=== PATIENT | male | born 1990 | race Caucasian/White ===

== ENCOUNTER 2019-08-12 15:13 | Inpatient (IN) | payer MEDICAID ==
[~2019-08-12] VITALS: Ht 180.3 cm; Wt 64.1 kg
[2019-08-12 19:34] VITALS: BP 118/76
--- NOTE | 2019-08-12 21:00 | NUR ---
ADMIT NOTE Legal hold: 5150 Client on involuntary status for SI/HI Why are they here: [facility]. While at a medication appointment, pt endorsed SI with a plan to drown himself r/t to girlfriend relationship problems in the tub and HI towards staff r/t night terrors that tell him to harm the entire world. Pt states "I don't want to hurt my loved ones, they are just grouped into the world, so I won't act on it but the dreams tell me this". Nursing staff assessed at appointment and brought pt into [facility] where he was placed on a hold and brought to [facility]. No Med Hx, Hx DD and Schizoaffective Disorder Assessment What has happened this shift: Pt arrived on [facility] floor at 1934. Pt was transported to [facility] via wheelchair accompanied by security staff and Tristan PCT. Contraband check was completed by Charanjit and Tristan. 2 person skin assessment was completed by myself and Astrid Ordonez RN. Pt cooperative with admit process; all documentation and paperwork completed at bedside. Pt states he was feeling suicidal but not in this exact moment; Pt endorses +HI towards "the planet, I want to enslave them because my night terrors tell me to." Pt fatigued from receiving Ativan 2mg IM earlier in the day and requesting to have a snack then go to sleep. Physical assessment completed; findings unremarkable, but pt overall strength and gait mildly weak. Pt states it is from the IM injections and he is usually stronger. 5150 written, document copied and given to Pt. S/I, H/I: - SI, + HI A/VH: Denies Sleep: Reports sleeping okay, sometimes needs nighttime medication to help ADL's: Independent Group attendance: no evening groups offered Were meds taken: no scheduled medications Any med S/E: none observed or reported Mental Status Exam Appearance: Pt clean, changed into unit green scrubs and nonskid socks Eye contact: Direct Behavior: Cooperative, Fatigued Speech: Normal rate and rhythm Mood: Tired, Depressed 10/10 Affect: Blunted Thought process: Linear Thought Content: Wanting to go to sleep Cognition: A/Ox3 (off for time) Insight: Fair Judgment: Poor Interventions PRN's used: None Therapeutic interventions: 1:1 assessment, establishment of rapport, maintained safe therapeutic milieu, provided active listening with positive feedback, provided medication education and monitored for effects, monitored for change in behavior and provided needed interventions. Q 15 minute safety checks. Restraints/seclusion/emergency medication: N/A Justification of Continued Inpatient Treatment: Continued therapeutic support and medication management needed to provide stabilization, prevent decompensation, improve coping mechanisms decreasing risk to patient of re-admittance.
[2019-08-12] MEDS ORDERED: DIPH25CA83 PO (22:08)
[2019-08-12] MEDS ORDERED: THO10T PO (22:11)
[2019-08-12] MEDS ORDERED: IBUP-1984 PO (22:16)
[2019-08-12] MEDS ORDERED: LORA10TA7 PO (22:17)
[2019-08-12] MEDS ORDERED: OXCA300T16 PO (22:19)
[2019-08-12] MEDS ORDERED: OXCA600T9 PO (22:22)
[2019-08-12] MEDS ORDERED: ACET1TAB12 PO (22:24)
[2019-08-12] MEDS ORDERED: VENL-191 PO (22:28)
[2019-08-12] MEDS ORDERED: OLAN5TAB3 PO (22:30)
[2019-08-12] MEDS ORDERED: OLAN20TA3 PO (22:31)
[2019-08-12] MEDS ORDERED: chlorproMAZINE 25mg tablet PO PRN (23:15)
[2019-08-12] MEDS ORDERED: diphenhydrAMINE 25mg capsule PO PRN (23:15)
[2019-08-12] MEDS ORDERED: acetaminophen w/codeine (30MG) #3 tablet PO PRN (23:15)
[2019-08-13] MEDS ORDERED: acetaminophen 325mg tablet PO PRN (05:50)
[2019-08-13] MEDS ORDERED: loperamide 2mg capsule PO PRN (05:55)
[2019-08-13] MEDS ORDERED: LORazepam 1 MG tablet PO PRN (05:55)
[2019-08-13] MEDS ORDERED: magnesium hydroxide 30ml (MOM) UD suspension PO PRN (05:55)
[2019-08-13] MEDS: loratadine 10mg tablet PO SCH (07:38)
[2019-08-13 08:00] VITALS: BP 119/69
[2019-08-13] MEDS ORDERED: venlafaxine 37.5mg tablet PO SCH (08:00)
[2019-08-13] MEDS ORDERED: oxcarbazepine 150mg tablet PO SCH ×2 (08:00→21:00)
[2019-08-13] MEDS: mag hydrox/Alum hydrox/simeth 30ml oral suspension PO PRN (09:02)
[2019-08-13 12:08] LABS: CHOL/HDL RATIO 3.1 (0.00-4.99); CHOLESTEROL 156 MG/DL (0-200); HDL CHOLESTEROL 51 MG/DL (35-60); LDL CHOLESTEROL 96 MG/DL (50-100); TRIGLYCERIDES 49 MG/DL (20-135)
--- NOTE | 2019-08-13 12:16 | NUR ---
Malnutrition consult: Pt unsure if any wt loss but reports decreased appetite per malnutrition risk screening with RN. Noted that pt A/O x 3 per physical assessment. Patient's most recent wt hx is 62.8 kg 10/14/11 obtained with chair scale, pt currently 60.2 kg using standing scale resulting in BMI on the low end of appropriate. Pt currently on regular diet documented with 75-100% PO intake meeting nutrient needs. No significant decrease in muscle strength and no edema. Pt currently does not meet criteria for malnutrition. Will continue to follow and further assess for malnutrition during hospital stay. Addendum: 08/13/19 at [address] Amended: Links added.
[2019-08-13 12:18] LABS: HEMOGLOBIN A1C 4.8 % (4.5-6.2)
--- NOTE | 2019-08-13 15:26 | NUR ---
Nursing Progress note: Ezequiel Barber Legal hold: [id number] Client on involuntary status for SI/HI Why are they here: Pt resides in residential skilled nursing for DD. While at a medication appointment, pt endorsed SI with a plan to drown himself r/t to girlfriend relationship problems in the tub and HI towards staff r/t night terrors that tell him to harm the entire world. Pt states "I don't want to hurt my loved ones, they are just grouped into the world, so I won't act on it but the dreams tell me this". Nursing staff assessed at appointment and brought pt into [facility] where he was placed on a hold and brought to [facility]. Report received from Karey LARIOS No Med Hx, Hx DD and Schizoaffective Disorder Assessment What has happened this shift: Received patient at shift change. client was in bed resting with eyes closed in no apparent distress. Client was asked to give a blood sample this am which was eventually refused secondary to client anxiety. Amicable to morning medications and assessment. Came to Group Room for breakfast and interacted with peers. Blood draw was obtained this am about 1045 hours. Patient tolerated well but soon complained of an, "implant in my head causing my anger problem". Patient and chief underwriter spoke regarding the issue and client left conversation a little less anxious regarding "implant". Client wants to advocate for his release today citing that he no longer wants to cause harm to himself or others. Client spent majority of afternoon in his room. No behavioral issues identified. S/I, H/I: - SI + HI A/VH: Denies Sleep: Reports sleeping well. ADL's: Independent Group attendance: no Were meds taken: Yes Any med S/E: none observed or reported Mental Status Exam Appearance: Pt clean, changed into unit green scrubs and nonskid socks Eye contact: Direct Behavior: Cooperative, Fatigued Speech: Normal rate and rhythm Mood: Tired, Depressed 10/10 Affect: Blunted Thought process: Linear Thought Content: Wanting to go to sleep Cognition: A/Ox3 (off for time) Insight: Fair Judgment: Poor Interventions PRN's used: Maalox with good effect. Therapeutic interventions: 1:1 assessment, establishment of rapport, maintained safe therapeutic milieu, provided active listening with positive feedback, provided medication education and monitored for effects, monitored for change in behavior and provided needed interventions. Q 15 minute safety checks. Restraints/seclusion/emergency medication: N/A Justification of Continued Inpatient Treatment: Continued therapeutic support and medication management needed to provide stabilization, prevent decompensation, improve coping mechanisms decreasing risk to patient of re-admittance. Addendum: 08/13/19 at 1603 by Chino Brandon RN During a meeting with his treating DrSofiyathis afternoon, client stated that he does not feel as though he is being treated with proper medications.He states that his [facility] at his residence can provide proper list of medications. Client is amicable to assisting with locating the med list and Dr. Renee is aware.
--- NOTE | 2019-08-13 16:50 | NUR ---
After obtaining release, Sammy [facility] was contacted at 1645 hours today and it was requested of her to provide an accurate med list for this client. She will bring a copy to the unit later today or in the am tomorrow.
[2019-08-13] MEDS: acetaminophen 325mg tablet PO PRN (19:45)
[2019-08-13 20:00] VITALS: BP 114/73
[2019-08-13] MEDS ORDERED: OLANZAPINE 5 MG TABLET PO SCH (21:00)
[2019-08-13] MEDS ORDERED: olanzapine 10mg tablet PO SCH (21:00)
--- NOTE | 2019-08-13 21:59 | NUR ---
NURSING PROGRESS NOTE Legal hold: [id number] Client on involuntary status for DTS/DTO Report received from BRYAN Funez with [facility] Why are they here: Pt resides in residential fpc for DD. While at a medication appointment, pt endorsed SI with a plan to drown himself in the tub r/t to girlfriend relationship problems and concurrent HI towards staff r/t night terrors that tell him to harm the entire world. Pt states "I don't want to hurt my loved ones, they are just grouped into the world, so I won't act on it but the dreams tell me this". Nursing staff assessed at appointment and brought pt into [facility] where he was placed on a hold and brought to [facility]. No Med Hx, Hx DD and Schizoaffective Disorder Assessment What has happened this shift: Pt walking the halls during change of shift, then isolated to self not wanting to attend snack "I just want to sleep". Pt made minimal eye contact and RN needed to prompt pt mulitple times to illicit a response; pt denies SI and HI, stating he "wants to go home." He denied having nightmares last night, and refused give medications this evening, stating "I do not take those medications." horticulture professor contacted residential home where pt resides for the second time today to confirm pt medications; awaiting response. Pt would not further elaborate on circumstances which brought him in, only reiterating "I'm not sad. I just want to go home." S/I, H/I: Denies A/VH: Denies, Does not appear to be responding to internal/external stimuli Sleep: See Sleep Assessment ADL's: Independent Group attendance: N/A Were meds taken: No, pt refused stating "I do not take those". Unit attempted second contact with residential home to confirm medications, awaiting response. Any med S/E: None observed nor reported Mental Status Exam Appearance: Pt clean, unit green scrubs and nonskid socks Eye contact: Minimal Behavior: Cooperative, Fatigued Speech: Normal rate and rhythm Mood: "Tired" Affect: Flat Thought process: Linear Thought Content: Wanting to go to sleep Cognition: A/Ox3 (off for time) Insight: Fair Judgment: Poor Interventions PRN's used: None Therapeutic interventions: 1:1 assessment, establishment of rapport, maintained safe therapeutic milieu, provided active listening with positive feedback, provided medication education and monitored for effects, monitored for change in behavior and provided needed interventions. Q 15 minute safety checks. Restraints/seclusion/emergency medication: N/A Justification of Continued Inpatient Treatment: Continued therapeutic support and medication management needed to provide stabilization, prevent decompensation, improve coping mechanisms decreasing risk to patient of re-admittance.
--- NOTE | 2019-08-14 05:13 | NUR ---
Carissa Yoana: [phone] [facility] Wildlife Ecologist Brought CLIENTS EMAR.
[2019-08-14] MEDS ORDERED: BUPR200T2 PO (05:18)
[2019-08-14] MEDS ORDERED: ARIP400S3 IM (05:18)
[2019-08-14] MEDS ORDERED: PALI234D IM (05:19)
[2019-08-14] MEDS ORDERED: MONT10TA24 PO (05:22)
[2019-08-14] MEDS ORDERED: OMEP20TA23 PO (05:22)
[2019-08-14] MEDS ORDERED: [UNRECOGNIZED DRUG - CODE] (05:31)
[2019-08-14] MEDS ORDERED: ONDA8TAB12 PO (05:34)
[2019-08-14 07:48] VITALS: BP 114/72
--- NOTE | 2019-08-14 08:05 | NUR ---
Spoke to [facility] office who states that she will send a copy of this Pt's medication list via fax. Steffi at [facility] office confirms that Pt is on both Invega Sustenna and Abilify Maintaina and Wellbutrin SR given once daily in the mornings. She reports also that he received both of the injections for Invega and Abilify on 08/10/19. This information was clarified by this insurance underwriter with [facility] pharmacist.
[2019-08-14] MEDS: loratadine 10mg tablet PO SCH (09:16)
[2019-08-14] MEDS: buPROPion SR 100mg tab PO SCH (09:17)
[2019-08-14] MEDS: ondansetron 4mg rapidly disintigrating tab PO SCH (09:17)
[2019-08-14] MEDS: montelukast 10mg tablet PO SCH (09:39)
[2019-08-14] MEDS: acetaminophen 325mg tablet PO PRN (15:19)
[2019-08-14] MEDS: mag hydrox/Alum hydrox/simeth 30ml oral suspension PO PRN (15:21)
[2019-08-14] MEDS ORDERED: proCHLORperazine 10 MG/2 ml inj IM PRN (16:20)
[2019-08-14] MEDS: aspirin/acetaminophen/caffeine tablet PO PRN (17:11)
--- NOTE | 2019-08-14 17:14 | NUR ---
Nursing Progress note: Legal hold: 5150 Report received from Karey LARIOS Client on involuntary status for SI/HI Why are they here: Pt resides in residential long term for DD. While at a medication appointment, pt endorsed SI with a plan to drown himself r/t to girlfriend relationship problems in the tub and HI towards staff r/t night terrors that tell him to harm the entire world. Pt states "I don't want to hurt my loved ones, they are just grouped into the world, so I won't act on it but the dreams tell me this". Nursing staff assessed at appointment and brought pt into [facility] where he was placed on a hold and brought to [facility]. Assessment What has happened this shift: Received patient in bed sleeping w/o distress at shift change. He awoke and was pleasant in conversation with this nurse and attended breakfast where he was able to talk with others appropriately. He complained of not feeling well and vommitted breakfast and continued to vommit multiple times. Was fatigued and drowsey and helped him to bed and provided comfort. Pt slept for an hour and c/o caffeine w/d and body aches and was given tylenol with moderate effect. Pt ate lunch and had some soda during movie and snack time, but vommited after. Given maalox for upset stomach. Consulted with Charge Nurse and Dr Renee and compazine and excedrin ordered and given. Pt increasingly talkative throughout day. Affect and energy brighter after meds and eating PBJ and cheese. S/I, H/I: - SI + HI A/VH: Denies Sleep: Reports sleeping well. ADL's: Independent Group attendance: no Were meds taken: Yes Any med S/E: none observed or reported Mental Status Exam Appearance: Pt clean, changed into unit green scrubs and nonskid socks Eye contact: Direct Behavior: Cooperative, Fatigued Speech: Normal rate and rhythm Mood: Tired, Depressed 10/10 Affect: Blunted Thought process: Linear Thought Content: Wanting to go to sleep Cognition: A/Ox3 Insight: Fair Judgment: Poor Interventions PRN's used: Tylenol,Maalox, Compazine, Excedrin Therapeutic interventions: 1:1 assessment, establishment of rapport, maintained safe therapeutic milieu, provided active listening with positive feedback, provided medication education and monitored for effects, monitored for change in behavior and provided needed interventions. Q 15 minute safety checks. Restraints/seclusion/emergency medication: N/A Justification of Continued Inpatient Treatment: Continued therapeutic support and medication management needed to provide stabilization, prevent decompensation, improve coping mechanisms decreasing risk to patient of re-admittance.
[2019-08-14 19:00] VITALS: BP 127/90
[2019-08-14 20:00] VITALS: BP 127/90
[2019-08-14] MEDS: hydrOXYzine 25 MG tablet PO PRN ×2 (20:22→21:24)
[2019-08-14] MEDS: pantoprazole 40mg Tablet.DR PO SCH (20:22)
--- NOTE | 2019-08-15 01:12 | NUR ---
NURSING PROGRESS NOTE Legal hold: [id number] Client on involuntary status for DTS/DTO Report received from BRYAN Mehta with [facility] Why are they here: Pt resides in [facility] for DD. While at a medication appointment, pt endorsed SI with a plan to drown himself in the tub r/t to girlfriend relationship problems and concurrent HI towards staff r/t night terrors that tell him to harm the entire world. Pt states "I don't want to hurt my loved ones, they are just grouped into the world, so I won't act on it but the dreams tell me this". Nursing staff assessed at appointment and brought pt into [facility] where he was placed on a hold and brought to [facility]. No Med Hx, Hx DD and Schizoaffective Disorder Assessment What has happened this shift: Pt walking the halls at change of shift and approached this RN multiple times to ask for snacks and to converse about a "girl visiting". RN directed pt to bedside where the 1:1 was completed. Pt described a hallucination of a "young blonde girl who is 13 that comes to visit me every night, cuddle, but leaves in the morning." Pt was worried she was out in the world and in danger without anyone to look after her. RN reinforced reality and pt eventually came around to agreeing it was a hallucination and not an actual person. He states she visits him in his residential home, too. Pt continued "I wake up and have a boner and it's embarrassing." Pt asked why this occurs; RN discussed the biology behind waking with an erection in the morning. Pt verbalized understanding then returned to inquiring about his hallucination, wanting confirmation that she isn't real. RN reinforced reality and pt accepted. 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 This RN noticed hair pulling this shift and offered pt PRN Atarax, pt decided to take it to good effect. After medication administration pt went to bed, waking once for a snack. S/I, H/I: Denies A/VH: +VH; Pt sees a girl of 13 years old enter his room every night to cuddle Sleep: See Sleep Assessment ADL's: Independent Group attendance: N/A Were meds taken: Yes Any med S/E: None observed nor reported Mental Status Exam Appearance: Pt clean, unit green scrubs and nonskid socks Eye contact: Direct Behavior: Cooperative, Fatigued; Walking halls, requesting snacks, had a visitor, playing a game with peers, picking at hair Speech: Normal rate and rhythm Mood: Tired, Depression 1/10, Anxious 5/10 Affect: Blunted with occasional brightening Thought process: Linear Thought Content: Wanting to go to sleep, hallucinations Cognition: A/Ox3 (off for time) Insight: Fair Judgment: Poor Interventions PRN's used: Atarax x2 Therapeutic interventions: 1:1 assessment, establishment of rapport, maintained safe therapeutic milieu, provided active listening with positive feedback, provided medication education and monitored for effects, monitored for change in behavior and provided needed interventions. Q 15 minute safety checks. Restraints/seclusion/emergency medication: N/A Justification of Continued Inpatient Treatment: Continued therapeutic support and medication management needed to provide stabilization, prevent decompensation, improve coping mechanisms decreasing risk to patient of re-admittance.
[2019-08-15 07:21] VITALS: BP 97/57
[2019-08-15] MEDS: buPROPion SR 100mg tab PO SCH (08:27)
[2019-08-15] MEDS: loratadine 10mg tablet PO SCH (08:27)
[2019-08-15] MEDS: ondansetron 4mg rapidly disintigrating tab PO SCH (08:27)
[2019-08-15] MEDS: montelukast 10mg tablet PO SCH (08:30)
[2019-08-15] MEDS: aspirin/acetaminophen/caffeine tablet PO PRN ×3 (08:30→19:20)
[2019-08-15] MEDS: protein shake 8oz. (237ml) PO SCH ×2 (13:00→18:00)
--- NOTE | 2019-08-15 16:10 | NUR ---
Nursing Progress note: Legal hold: 5150 Client on involuntary status for SI/HI Report received from HARRIET Ventura, with use of [facility] Why are they here: Pt resides in residential [facility] for DD. While at a medication appointment, pt endorsed SI with a plan to drown himself r/t to girlfriend relationship problems in the tub and HI towards staff r/t night terrors that tell him to harm the entire world. Pt states "I don't want to hurt my loved ones, they are just grouped into the world, so I won't act on it but the dreams tell me this". Nursing staff assessed at appointment and brought pt into [facility] where he was placed on a hold and brought to [facility]. Assessment What has happened this shift: Pt up in the Recreation Room then paces the halls prior to breakfast. 1:1 assessment provided at bedside while administering AM medications. Pt declines encouragement to shower or to brush his teeth. He consistently comes to nurses, any nurse, to tell a story or ask for food or a medication. Pt got involved in art therapy and shared his feelings about a painting experience with the nurses. S/I, H/I: Denies A/VH: Denies Sleep: Up all day ADL's: Independent Group attendance: Yes Were Meds taken: Yes Any med S/E: none observed or reported Mental Status Exam Appearance: Needs shower; refused to shower or brush teeth Eye contact: Direct Behavior: Needs constant prompting to follow directions Speech: Normal rate and rhythm Mood: Tired, Depressed 10/10 Affect: Blunted Thought process: Linear Thought Content: "I'm God, I'm above the human." Cognition: A/Ox3 Insight: Fair Judgment: Poor Interventions PRN's used: Excedrin, Atarax Therapeutic interventions: 1:1 assessment, establishment of rapport, maintained safe therapeutic milieu, provided active listening with positive feedback, provided medication education and monitored for effects, monitored for change in behavior and provided needed interventions. Q 15 minute safety checks. Restraints/seclusion/emergency medication: N/A Justification of Continued Inpatient Treatment: Continued therapeutic support and medication management needed to provide stabilization, prevent decompensation, improve coping mechanisms decreasing risk to patient of re-admittance.
[2019-08-15] MEDS: pantoprazole 40mg Tablet.DR PO SCH (19:20)
[2019-08-15 20:00] VITALS: BP 121/80
--- NOTE | 2019-08-15 23:16 | NUR ---
Nursing Progress note: Legal hold: 5150 Client on involuntary status for SI/HI Report received from BRYAN Fan, with use of [facility] Why are they here: Pt resides in residential [facility]pc for DD. While at a medication appointment, pt endorsed SI with a plan to drown himself r/t to girlfriend relationship problems in the tub and HI towards staff r/t night terrors that tell him to harm the entire world. Pt states "I don't want to hurt my loved ones, they are just grouped into the world, so I won't act on it but the dreams tell me this". Nursing staff assessed at appointment and brought pt into [facility] where he was placed on a hold and brought to [facility]. Assessment What has happened this shift: Pt up in carney at start of shift. First thing the pt said after introduction "I want to kill everyone for things they have done and I want to kill myself for things I have done. I feel I deserve a violent . He said all this in a pleasant conversational tone, extremely incongruent with the content. Pt continues to talk nonstop, tangential, many somatic complaints. Approached various staff members not observed interacting with other pts. Pt is pleasant and cooperative with care took all medications. Came to group room for snack. Got up after going to bed saying he was hungry ate another snack and returned to bed. In bed sleeping at this time. S/I, H/I: Denies A/VH: Denies Sleep: Up all day ADL's: Independent Group attendance: Yes Were Meds taken: Yes Any med S/E: none observed or reported Mental Status Exam Appearance: Needs shower; refused to shower or brush teeth Eye contact: Direct Behavior: Needs constant prompting to follow directions Speech: Normal rate and rhythm Mood: Tired, Depressed 10/10 Affect: Blunted Thought process: Linear Thought Content: Tangential Cognition: A/Ox3 Insight: Fair Judgment: Poor Interventions PRN's used: Excedrin, Therapeutic interventions: 1:1 assessment, establishment of rapport, maintained safe therapeutic milieu, provided active listening with positive feedback, provided medication education and monitored for effects, monitored for change in behavior and provided needed interventions. Q 15 minute safety checks. Restraints/seclusion/emergency medication: N/A Justification of Continued Inpatient Treatment: Continued therapeutic support and medication management needed to provide stabilization, prevent decompensation, improve coping mechanisms decreasing risk to patient of re-admittance.
[2019-08-16 08:00] VITALS: BP 105/66
[2019-08-16] MEDS: ondansetron 4mg rapidly disintigrating tab PO SCH (09:40)
[2019-08-16] MEDS: loratadine 10mg tablet PO SCH (09:40)
[2019-08-16] MEDS: buPROPion SR 100mg tab PO SCH (09:40)
[2019-08-16] MEDS: montelukast 10mg tablet PO SCH (09:40)
[2019-08-16] MEDS: hydrOXYzine 25 MG tablet PO PRN ×2 (10:59→19:13)
--- NOTE | 2019-08-16 11:01 | NUR ---
DISCHARGE PLANNING: Patient refused to tell this singer songwriter who he sees outpatient or give this singer songwriter any contact information for anyone who might know
[2019-08-16] MEDS: aspirin/acetaminophen/caffeine tablet PO PRN (11:21)
[2019-08-16] MEDS: lactose-reduced food (Ensure Enlive) - 237ml bottle PO SCH ×2 (13:00→18:57)
--- NOTE | 2019-08-16 16:07 | NUR ---
Nursing Progress note: Legal hold: 5150 Client on involuntary status for SI/HI Report received from HARRIET Sánchez, with use of [employer] Why are they here: Pt resides in residential detention for DD. While at a medication appointment, pt endorsed SI with a plan to drown himself r/t to girlfriend relationship problems in the tub and HI towards staff r/t night terrors that tell him to harm the entire world. Pt states "I don't want to hurt my loved ones, they are just grouped into the world, so I won't act on it but the dreams tell me this". Nursing staff assessed at appointment and brought pt into [facility] where he was placed on a hold and brought to [facility]. Assessment What has happened this shift: Pt slept until 0945 this morning. His breakfast was warmed up and provided along with medication administration in the community room. Encouraged pt to shower. Pt states, "I don't shower I only take bathes." Educated pt to "shower meditation" encouraging him to try it. Pt later showered twice while meditating each time. PRN Atarax administered for agitation. S/I, H/I: Denies A/VH: Denies Sleep: Up all day ADL's: Independent Group attendance: No Were Meds taken: Yes Any med S/E: none observed or reported Mental Status Exam Appearance: Showered x2 today; clean green scrubs Eye contact: Direct Behavior: Needs constant prompting to follow directions Speech: Normal rate and rhythm Mood: Tired, Depressed 10/10 Affect: Blunted Thought process: Linear Thought Content: focused on pain in his thigh Cognition: A/Ox3 Insight: Fair Judgment: Poor Interventions PRN's used: Excedrin, Atarax Therapeutic interventions: 1:1 assessment, establishment of rapport, maintained safe therapeutic milieu, provided active listening with positive feedback, provided medication education and monitored for effects, monitored for change in behavior and provided needed interventions. Q 15 minute safety checks. Restraints/seclusion/emergency medication: N/A Justification of Continued Inpatient Treatment: Continued therapeutic support and medication management needed to provide stabilization, prevent decompensation, improve coping mechanisms decreasing risk to patient of re-admittance.
[2019-08-16] MEDS: ibuprofen 200mg tablet PO PRN (18:49)
[2019-08-16 20:00] VITALS: BP 127/77
[2019-08-16] MEDS: pantoprazole 40mg Tablet.DR PO SCH (20:29)
--- NOTE | 2019-08-16 21:54 | NUR ---
Nursing Progress note: Legal hold: 5150 Client on involuntary status for SI/HI Report received from HARRIET Duckworth, with use of SBAR Why are they here: Pt resides in residential alf for DD. While at a medication appointment, pt endorsed SI with a plan to drown himself r/t to girlfriend relationship problems in the tub and HI towards staff r/t night terrors that tell him to harm the entire world. Pt states "I don't want to hurt my loved ones, they are just grouped into the world, so I won't act on it but the dreams tell me this". Nursing staff assessed at appointment and brought pt into [facility] where he was placed on a hold and brought to [facility]. Assessment What has happened this shift: Pt up pacing carney and c/o of constipation PRN MOM and PRN Atarax administered for agitation. Pt went to sleep and refused his night meds. S/I, H/I: Denies A/VH: Denies Sleep: Up all day ADL's: Independent Group attendance: No Were Meds taken: Yes Any med S/E: none observed or reported Mental Status Exam Appearance: Showered x2 today; clean green scrubs Eye contact: Direct Behavior: Needs constant prompting to follow directions Speech: Normal rate and rhythm Mood: Tired, Depressed 10/10 Affect: Blunted Thought process: Linear Thought Content: focused on pain in his thigh Cognition: A/Ox3 Insight: Fair Judgment: Poor Interventions PRN's used: Excedrin, Atarax Therapeutic interventions: 1:1 assessment, establishment of rapport, maintained safe therapeutic milieu, provided active listening with positive feedback, provided medication education and monitored for effects, monitored for change in behavior and provided needed interventions. Q 15 minute safety checks. Restraints/seclusion/emergency medication: N/A Justification of Continued Inpatient Treatment: Continued therapeutic support and medication management needed to provide stabilization, prevent decompensation, improve coping mechanisms decreasing risk to patient of re-admittance.
[2019-08-17 08:00] VITALS: BP 97/47
[2019-08-17] MEDS: montelukast 10mg tablet PO SCH (08:17)
[2019-08-17] MEDS: loratadine 10mg tablet PO SCH (08:17)
[2019-08-17] MEDS: ondansetron 4mg rapidly disintigrating tab PO SCH (08:17)
[2019-08-17] MEDS: buPROPion SR 100mg tab PO SCH (08:17)
[2019-08-17] MEDS: lactose-reduced food (Ensure Enlive) - 237ml bottle PO SCH ×3 (08:17→18:00)
--- NOTE | 2019-08-17 11:01 | NUR ---
Initial: Pt admit with schizoaffective disorder. Pt currently on a regular diet documented with fluctuating PO intake, previously averaging 50% however up to 75-100% with 100% PO intake of Ensure Enlive TID meeting nutrient needs. Per physical assessment pt c/o nausea however able to eat a snack and is receiving Zofran PRN. LBM 08/15, pt with MoM PRN just given 08/16. No edema or wounds. No nutrition diagnosis at this time. Will continue to follow. Recommendations: 1) Continue regular diet 2) Continue Ensure Enlive TID 3) Bowel care PRN 4) Weekly wt Addendum: 08/17/19 at [address] Amended: Links added.
[2019-08-17] MEDS: acetaminophen 325mg tablet PO PRN (16:28)
[2019-08-17 20:00] VITALS: BP 133/74
[2019-08-17] MEDS: propranolol 10mg tablet PO SCH (20:02)
[2019-08-17] MEDS: ibuprofen 200mg tablet PO PRN (20:02)
[2019-08-17] MEDS: pantoprazole 40mg Tablet.DR PO SCH (20:02)
--- NOTE | 2019-08-18 01:38 | NUR ---
Nursing Progress note: Legal hold: 525 Client on involuntary status for SI/HI Report received from HARRIET Duckworth, with use of SBAR Why are they here: Pt resides in residential [facility] for DD. While at a medication appointment, pt endorsed SI with a plan to drown himself r/t to girlfriend relationship problems in the tub and HI towards staff r/t night terrors that tell him to harm the entire world. Pt states "I don't want to hurt my loved ones, they are just grouped into the world, so I won't act on it but the dreams tell me this". Nursing staff assessed at appointment and brought pt into [facility] where he was placed on a hold and brought to [facility]. Assessment What has happened this shift: Patient is in the shower at change of shift. Patient presents to the software writer at approximal 1930 verbalizing irritability because he was asked to leave the shower as he had been in the shower for 2+ hours. He stated "I don't like being told what to do and I get mad when people tell me what to do." Patient was talked to and allowed to vent and was able to be calmed by venting, being listened to. He was provided with a sandwich for snack, and a decaf coffee. He then reported generalized pain of 10, and requested pain medication. Motrin 600mg given with HS medication with good effect. Patient was compliant for a 1:1 assessment, and became less irritable as the evening went on. By bed time patient was again talking to staff and pleasant before turning himself to bed for the evening. S/I, H/I: Denies A/VH: Denies Sleep: Currently sleeping, see sleep assessment ADL's: Independent Group attendance: No groups this shift Were Meds taken: Yes Any med S/E: none observed or reported Mental Status Exam Appearance: Clean, showered Eye contact: Direct Behavior: Needs prompting to follow directions Speech: Normal rate and rhythm Mood: Irritable, but became happy/pleasant as the evening progressed. Affect: Blunted Thought process: Linear Thought Content: Focused on being mad about being told what to do. Cognition: A/Ox3 Insight: Fair Judgment: Poor Interventions PRN's used: Motrin Therapeutic interventions: 1:1 assessment, establishment of rapport, maintained safe therapeutic milieu, provided active listening with positive feedback, provided medication education and monitored for effects, monitored for change in behavior and provided needed interventions. Q 15 minute safety checks. Restraints/seclusion/emergency medication: N/A Justification of Continued Inpatient Treatment: Continued therapeutic support and medication management needed to provide stabilization, prevent decompensation, improve coping mechanisms decreasing risk to patient of re-admittance.
[2019-08-18 08:00] VITALS: BP 112/63
[2019-08-18] MEDS: loratadine 10mg tablet PO SCH (08:02)
[2019-08-18] MEDS: montelukast 10mg tablet PO SCH (08:02)
[2019-08-18] MEDS: propranolol 10mg tablet PO SCH ×3 (08:03→19:52)
[2019-08-18] MEDS: buPROPion SR 100mg tab PO SCH (08:03)
[2019-08-18] MEDS: ondansetron 4mg rapidly disintigrating tab PO SCH (08:03)
[2019-08-18] MEDS: lactose-reduced food (Ensure Enlive) - 237ml bottle PO SCH ×3 (08:43→18:00)
--- NOTE | 2019-08-18 17:03 | NUR ---
Nursing Progress note: Legal hold: 5250 Client on involuntary status for SI/HI Report received from HARRIET Sánchez, with use of SBAR Why are they here: [facility] in [facility]. While at a medication appointment, pt endorsed SI with a plan to drown himself r/t to girlfriend relationship problems in the tub and HI towards staff r/t night terrors that tell him to harm the entire world. Pt states "I don't want to hurt my loved ones, they are just grouped into the world, so I won't act on it but the dreams tell me this". Nursing staff assessed at appointment and brought pt into [facility] where he was placed on a hold and brought to [facility]. Assessment What has happened this shift: Patient is observed sleeping at change of shift. He is awoken to take his medications just prior to breakfast. Patient is provided medication education and encouraged to eat his breakfast. Patient states that he has multiple personalities and that most of them are bad and want to kill humanity. Patient tends to focus on this topic of discussion until redirected to other topics of interest. Patient discusses primitive batteries that Egyptians used made out of Zach lewis. He then talks about giant squids. Patient c/o of increased heart rate, RN educated patient on how to check his heart rate manually, 88 BPM. Patient is offered hot tea, he drinks it at states that he is going to rest. RN encouraged deep breathing exercises to help reduce anxiety. Patient approaches reporting feelings of anger that are causing him to want to hurt others. He scratches at his face and tells this RN he does so so that he will not hurt others. Patient states that he was born a God, a God that was made to torture people. Patient tells RN that he has two cats; Mittens and Jelly that he cares for. He is able to be redirected to focusing on their care which changes his demeanor to calm. S/I, H/I: Denies A/VH: Denies Sleep: 7.75hrs NOC and rested during the day, patient reports he does not feel like he is getting rest. ADL's: Independent Group attendance: yes Were Meds taken: Yes Any med S/E: none observed or reported Mental Status Exam Appearance: disheveled Eye contact: Direct Behavior: pleasant, frustrated, angry Speech: Normal rate and rhythm, soft tone Mood: labile Affect: congruent to mood Thought process: disorganized Thought Content: delusional thought content present Cognition: A/Ox3 Insight: Fair Judgment: Poor Interventions PRN's used: none Therapeutic interventions: 1:1 assessment, establishment of rapport, maintained safe therapeutic milieu, provided active listening with positive feedback, provided medication education and monitored for effects, monitored for change in behavior and provided needed interventions. Q 15 minute safety checks. Restraints/seclusion/emergency medication: N/A Justification of Continued Inpatient Treatment: Continued therapeutic support and medication management needed to provide stabilization, prevent decompensation, improve coping mechanisms decreasing risk to patient of re-admittance.
[2019-08-18] MEDS: mag hydrox/Alum hydrox/simeth 30ml oral suspension PO PRN (17:13)
[2019-08-18 19:00] VITALS: BP 122/76
[2019-08-18] MEDS: pantoprazole 40mg Tablet.DR PO SCH (19:52)
--- NOTE | 2019-08-19 02:46 | NUR ---
Nursing Progress note: Legal hold: 5250 Client on involuntary status for SI/HI Report received from HARRIET Zheng, with use of SBAR Why are they here: Pt resides in residential long term for DD. While at a medication appointment, pt endorsed SI with a plan to drown himself r/t to girlfriend relationship problems in the tub and HI towards staff r/t night terrors that tell him to harm the entire world. Pt states "I don't want to hurt my loved ones, they are just grouped into the world, so I won't act on it but the dreams tell me this". Nursing staff assessed at appointment and brought pt into [facility] where he was placed on a hold and brought to [facility]. Assessment What has happened this shift: Patient in the shower at change of shift, but presents to this headline writer shortly after change of shift informing that he was done showering. He reports stomach pain at this time, and pretty much keeps to his room this evening only coming out on occasion to talk to this headline writer about this thoughts and or for request. He states he is tired this evening and just wants to go to bed. He is given his HS medications early, offered a snack, and then helped to his room. He is compliant with his HS medications and asks this headline writer to cover him so he can go to bed. Patient is covered with his warm blackens and falls asleep a short while later. No statements of anger or wanting to harm others made this evening. S/I, H/I: Denies A/VH: Denies Sleep: Currently sleeping, see sleep assessment ADL's: Independent Group attendance: Yes Were Meds taken: Yes Any med S/E: None observed or reported Mental Status Exam Appearance: clean Eye contact: Direct Behavior: Pleasant, isolative Speech: Normal rate and rhythm, soft tone Mood: Calm, fatigued Affect: congruent to mood Thought process: Disorganized Thought Content: Delusional thought content present Cognition: A/Ox3 Insight: Fair Judgment: Poor Interventions PRN's used: None Therapeutic interventions: 1:1 assessment, establishment of rapport, maintained safe therapeutic milieu, provided active listening with positive feedback, provided medication education and monitored for effects, monitored for change in behavior and provided needed interventions. Q 15 minute safety checks. Restraints/seclusion/emergency medication: N/A Justification of Continued Inpatient Treatment: Continued therapeutic support and medication management needed to provide stabilization, prevent decompensation, improve coping mechanisms decreasing risk to patient of re-admittance.
[2019-08-19] MEDS: propranolol 10mg tablet PO SCH ×3 (07:51→20:07)
[2019-08-19] MEDS: buPROPion SR 100mg tab PO SCH (07:51)
[2019-08-19] MEDS: ondansetron 4mg rapidly disintigrating tab PO SCH (07:51)
[2019-08-19] MEDS: montelukast 10mg tablet PO SCH (07:51)
[2019-08-19] MEDS: loratadine 10mg tablet PO SCH (07:51)
[2019-08-19 08:00] VITALS: BP 113/60
[2019-08-19] MEDS: lactose-reduced food (Ensure Enlive) - 237ml bottle PO SCH ×3 (08:00→18:50)
[2019-08-19] MEDS: mag hydrox/Alum hydrox/simeth 30ml oral suspension PO PRN ×2 (13:12→18:18)
--- NOTE | 2019-08-19 16:08 | NUR ---
Nursing Progress note: Legal hold: 5250 Client on involuntary status for SI/HI Report received from Karey Spaulding RN ith use of SBAR. Why are they here: Pt resides in residential nursing home for DD. While at a medication appointment, pt endorsed SI with a plan to drown himself r/t to girlfriend relationship problems in the tub and HI towards staff r/t night terrors that tell him to harm the entire world. Pt states "I don't want to hurt my loved ones, they are just grouped into the world, so I won't act on it but the dreams tell me this". Nursing staff assessed at appointment and brought pt into [facility] where he was placed on a hold and brought to [facility]. Assessment What has happened this shift: Patient is observed sleeping at shift change. He is difficult to wake and when he does states that he did not sleep well due to night terrors. Patient refused vitals but allows RN to assess him and takes all his medications without issue. After breakfast patient states "Im losing my patience, I need caffeine, thats the only thing that makes me feel better." Patient attempts to work himself up but is redirected with picutres of puppies, conversations about his vacations in [place] and swimming with sharks. Patient continues to perseverate on his need for caffeine. Comfort measures are provided such as warm blankets and hot tea, patient is encouraged to rest. Patient denies needing medication for headache and continuously requests caffeine, stating he will hurt others and that he cant breath. Redirection and deescalation is used frequently throughout the day as patient seeks attention for various somatic complaints. Around mid day patient states that he no longer feels like he needs caffeine and feels better soaking in the positive vibes of others. He attends outdoor group and, bingo and other groups. He approaches this RN in a calm and pleasant manner even though he continues to seek attention. S/I, H/I: Denies A/VH: Denies Sleep: 8.25hrs NOC and rested during the day ADL's: Independent Group attendance: yes Were Meds taken: Yes Any med S/E: none observed or reported Mental Status Exam Appearance: disheveled Eye contact: Direct Behavior: frustrated, angry first half of day, pleasant other half Speech: Normal rate and rhythm, soft tone Mood: labile Affect: congruent to mood Thought process: disorganized, perseverates Thought Content: no delusional thought content expressed today Cognition: A/Ox3 Insight: Fair Judgment: Poor Interventions PRN's used: Maalox for upset stomach Therapeutic interventions: 1:1 assessment, establishment of rapport, maintained safe therapeutic milieu, provided active listening with positive feedback, provided medication education and monitored for effects, monitored for change in behavior and provided needed interventions. Q 15 minute safety checks. Restraints/seclusion/emergency medication: N/A Justification of Continued Inpatient Treatment: Continued therapeutic support and medication management needed to provide stabilization, prevent decompensation, improve coping mechanisms decreasing risk to patient of re-admittance.
[2019-08-19] MEDS: aspirin/acetaminophen/caffeine tablet PO PRN (18:40)
[2019-08-19 20:00] VITALS: BP 122/73
[2019-08-19] MEDS: pantoprazole 40mg Tablet.DR PO SCH (20:07)
--- NOTE | 2019-08-20 02:22 | NUR ---
Nursing Progress note: Legal hold: 5250 Client on involuntary status for SI/HI Report received from BRYAN Zheng ith use of SBAR. Why are they here: Pt resides in residential correction for DD. While at a medication appointment, pt endorsed SI with a plan to drown himself r/t to girlfriend relationship problems in the tub and HI towards staff r/t night terrors that tell him to harm the entire world. Pt states "I don't want to hurt my loved ones, they are just grouped into the world, so I won't act on it but the dreams tell me this". Nursing staff assessed at appointment and brought pt into [facility] where he was placed on a hold and brought to [facility]. Assessment What has happened this shift: Patient is up on the unit at change of shift he has complains of face pain and a headache. He reports that he hasn't ate dinner and that he needs help opening his tray. Patient also reports that he is still wanting caffeine. Patient is assisted in opening his dinner tray and he sits in the group room to eat. Patient is medicated with his Pain Reliever Plus Tablet for his complaint of headache with good effect. After eating a small amount of his meal and dinner along with his ensure, he refuses to eat anymore. He spends the majority of his evening in and out of the nursing area with somatic complaints and attention seeking behavior, ie: arm pain, nausea, requests for things in his room like mouthwash, blankets even though he has blankets on his bed. Redirection only last for a short amount of time. Patient does make delusional statements this evening and reports during this time that he was the Grim reaper and that he has stollen many souls, he is able to be redirected and distracted from this by changing the conversation to joke telling. After about an hour of this behavior patient eventually asked to be tucked into bed. Patient is escorted to his room and covered, he remains in bed after this. He is compliant with medications. S/I, H/I: Denies A/VH: Denies Sleep: See sleep assessment ADL's: Independent Group attendance: No groups this shift Were Meds taken: Yes Any med S/E: None observed or reported Mental Status Exam Appearance: Showered Eye contact: Direct Behavior: Attention seeking Speech: Normal rate and rhythm, soft tone Mood: Restless Affect: Congruent to mood Thought process: Disorganized, perseverates Thought Content: Delusional, Stated he was the grim reaper. Cognition: A/Ox3 Insight: Fair Judgment: Poor Interventions PRN's used: Pain Reliever Plus Tablet Therapeutic interventions: 1:1 assessment, establishment of rapport, maintained safe therapeutic milieu, provided active listening with positive feedback, provided medication education and monitored for effects, monitored for change in behavior and provided needed interventions. Q 15 minute safety checks. Restraints/seclusion/emergency medication: N/A Justification of Continued Inpatient Treatment: Continued therapeutic support and medication management needed to provide stabilization, prevent decompensation, improve coping mechanisms decreasing risk to patient of re-admittance.
[2019-08-20 08:00] VITALS: BP 112/70
[2019-08-20] MEDS: lactose-reduced food (Ensure Enlive) - 237ml bottle PO SCH ×3 (08:00→18:07)
[2019-08-20] MEDS: buPROPion SR 100mg tab PO SCH (08:11)
[2019-08-20] MEDS: propranolol 10mg tablet PO SCH ×3 (08:11→20:57)
[2019-08-20] MEDS: loratadine 10mg tablet PO SCH (08:11)
[2019-08-20] MEDS: ondansetron 4mg rapidly disintigrating tab PO SCH (08:11)
[2019-08-20] MEDS: montelukast 10mg tablet PO SCH (08:11)
[2019-08-20] MEDS: aspirin/acetaminophen/caffeine tablet PO PRN ×2 (08:18→18:10)
[2019-08-20] MEDS: mag hydrox/Alum hydrox/simeth 30ml oral suspension PO PRN (14:06)
--- NOTE | 2019-08-20 18:01 | NUR ---
Nursing Progress note: Legal hold: 5250 Client on involuntary status for SI/HI Report received from Karey Spaulding RN ith use of SBAR. Why are they here: Pt resides in residential [facility] for DD. While at a medication appointment, pt endorsed SI with a plan to drown himself r/t to girlfriend relationship problems in the tub and HI towards staff r/t night terrors that tell him to harm the entire world. Pt states "I don't want to hurt my loved ones, they are just grouped into the world, so I won't act on it but the dreams tell me this". Nursing staff assessed at appointment and brought pt into [facility] where he was placed on a hold and brought to [facility]. Assessment What has happened this shift: Patient is observed sleeping at shift change. He wakes prior to breakfast and begins discussing how badly he needs caffeine. He takes his medications and joins others for breakfast. Patient takes Excedrin and drinks decaf to try and combat his caffeine withdrawals. He then reports that he feels nauseated from too much caffeine. He states his heart is racing, vitals taken, WNL. He requests a shower and while in the shower he vomits. When he gets out he requests assistance to write a will because he feels he is dieing because he had a large bowel movement and vomited. Patient becomes angry towards the end of the day because he wanted to take another shower and someone told him no. He becomes extremely agitated. De-escalation is successful with animal videos and encouragement to use coping skills so that patient can discharge. S/I, H/I: Denies A/VH: Denies Sleep: 6.75hrs NOC and rested during the day ADL's: Independent Group attendance: yes Were Meds taken: Yes Any med S/E: none observed or reported Mental Status Exam Appearance: disheveled Eye contact: Direct Behavior: improved from prior shift but continues to be impulsive, and volatile Speech: Normal rate and rhythm, soft tone Mood: labile Affect: congruent to mood Thought process: disorganized, perseverates Thought Content: states he is a God Cognition: A/Ox3 Insight: Fair Judgment: Poor Interventions PRN's used: Maalox for upset stomach Therapeutic interventions: 1:1 assessment, establishment of rapport, maintained safe therapeutic milieu, provided active listening with positive feedback, provided medication education and monitored for effects, monitored for change in behavior and provided needed interventions. Q 15 minute safety checks. Restraints/seclusion/emergency medication: N/A Justification of Continued Inpatient Treatment: Continued therapeutic support and medication management needed to provide stabilization, prevent decompensation, improve coping mechanisms decreasing risk to patient of re-admittance.
[2019-08-20 19:15] VITALS: BP 119/77
[2019-08-20] MEDS: pantoprazole 40mg Tablet.DR PO SCH (20:58)
--- NOTE | 2019-08-21 00:27 | NUR ---
Nursing Progress note: Legal hold: 5250 Client on involuntary status for SI/HI Report received from BRYAN Zheng with use of SBAR. Why are they here: Pt resides in residential [facility] for DD. While at a medication appointment, pt endorsed SI with a plan to drown himself r/t to girlfriend relationship problems in the tub and HI towards staff r/t night terrors that tell him to harm the entire world. Pt states "I don't want to hurt my loved ones, they are just grouped into the world, so I won't act on it but the dreams tell me this". Nursing staff assessed at appointment and brought pt into [facility] where he was placed on a hold and brought to [facility]. Assessment What has happened this shift: Patient is ambulatory after shift change. He visits and watches television with other clients. This patient is well oriented. Patient states he is feeling better now compared to earlier. When asked what he means the patient states "I was just angry earlier." He then relays to this specification writer that he sometimes beats himself to relieve anger. "That way I don't beat animals or other people." Patient presents as friendly and cooperative. He states "I not always nice, sometimes I'm Osama bin Laden, or Hitler." Patient presents as perhaps developmentally delayed, he is child like at times. When asked how he knows of Osama bin Laden and Hitler, the patient relays that he enjoys history. Patient denies S/I or H/I, he denies hallucinations. 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 He does describe a fear of night terrors. The patient ate his dinner. He is medication compliant and is very cooperative with staff. The patient was advised that he is in a safe place. Q15 minute rounding is being done for patient safety. S/I, H/I: Denies. A/VH: Denies. Sleep: Will tally in am. ADL's: Independent. Group attendance: Yes, on day shift. Were Meds taken: Yes, patient is medication compliant. Any med S/E: None observed or reported. Mental Status Exam Appearance: Disheveled. Eye contact: Direct. Behavior: Bizarre at times. Speech: Normal rate and rhythm, normal tone. Mood: Labile on day shift, not quite on nights. Affect: Congruent to mood. Thought process: Disorganized, believes he is Osama selma Laden, sometimes Hitler. Thought Content: Identity delusions. Cognition: Well oriented save for occasional delusions. Insight: Fair. Judgment: Poor. Interventions PRN's used:None. Therapeutic interventions: 1:1 assessment, establishment of rapport, maintained safe therapeutic milieu, provided active listening with positive feedback, provided medication education and monitored for effects, monitored for change in behavior and provided needed interventions. Q 15 minute safety checks. Restraints/seclusion/emergency medication: N/A Justification of Continued Inpatient Treatment: Continued therapeutic support and medication management needed to provide stabilization, prevent decompensation, improve coping mechanisms decreasing risk to patient of re-admittance.
[2019-08-21 07:30] VITALS: BP 103/63
[2019-08-21] MEDS: buPROPion SR 100mg tab PO SCH (07:45)
[2019-08-21] MEDS: montelukast 10mg tablet PO SCH (07:45)
[2019-08-21] MEDS: propranolol 10mg tablet PO SCH ×3 (07:45→20:16)
[2019-08-21] MEDS: loratadine 10mg tablet PO SCH ×2 (07:45→20:16)
[2019-08-21] MEDS: ondansetron 4mg rapidly disintigrating tab PO SCH (07:47)
[2019-08-21] MEDS: lactose-reduced food (Ensure Enlive) - 237ml bottle PO SCH ×3 (08:24→18:17)
[2019-08-21] MEDS: ibuprofen 200mg tablet PO PRN (08:41)
[2019-08-21] MEDS: aspirin/acetaminophen/caffeine tablet PO PRN (12:03)
[2019-08-21] MEDS: mag hydrox/Alum hydrox/simeth 30ml oral suspension PO PRN (13:54)
--- NOTE | 2019-08-21 17:45 | NUR ---
Nursing Progress note: Legal hold: 5250 Client on involuntary status for SI/HI Report received from BRYAN Nam with use of SBAR. Why are they here: Pt resides in residential skilled nursing for DD. While at a medication appointment, pt endorsed SI with a plan to drown himself r/t to girlfriend relationship problems in the tub and HI towards staff r/t night terrors that tell him to harm the entire world. Pt states "I don't want to hurt my loved ones, they are just grouped into the world, so I won't act on it but the dreams tell me this". Nursing staff assessed at appointment and brought pt into [facility] where he was placed on a hold and brought to [facility]. Assessment What has happened this shift: Pt. asleep at start of shift. Pt. awake before breakfast and requesting medications. 1:1 done at bedisde. Pt. denies SI/HI, A/V H but then replies, "I see people. they are really there, I'm not crazy. They are mostly evil.... I have 5,000 times. I once had a near experience and after this I started seeing spirits. I help spirits who are trapped on earth cross into the afterlife". Pt. reports feeeling tired and went back to sleep after breakfast. Pt. received Motrin and Excedrin for headache with good effect. Pt. in community room at lunch time watching TV. Pt. explaining at length to this RN the life of jenni white, pt. is hyperverbal. Pt. received Maalox for upset stomach with good effect. Pt. became agitated in afternoon after being told that he would not be able to play a keyboard on the unit. Pt. states, "I have no patience... This is the way God made me, I have ADHD... This is why I want to hurt myself and why I deserve todie". Pt. was redirectable. Pt. showered. S/I, H/I: Denies. A/VH: Pt. denies but reports seeing spirits. Sleep: Pt. napped x1 ADL's: Independent. Pt. showered today. Group attendance: No Were Meds taken: Yes Any med S/E: None observed or reported. Mental Status Exam Appearance: Disheveled. Eye contact: Direct. Behavior: Bizarre at times. Speech: Normal rate and rhythm, normal tone. Mood: Labile, easily agitated. Affect: Congruent to mood. Thought process: Linear Thought Content: Self-deprecating. Cognition: Well oriented save for occasional delusions. Insight: Fair. Judgment: Poor. Interventions PRN's used: Maalox, excedrin, motrin Therapeutic interventions: 1:1 assessment, establishment of rapport, maintained safe therapeutic milieu, provided active listening with positive feedback, provided medication education and monitored for effects, monitored for change in behavior and provided needed interventions. Q 15 minute safety checks. Restraints/seclusion/emergency medication: N/A Justification of Continued Inpatient Treatment: Continued therapeutic support and medication management needed to provide stabilization, prevent decompensation, improve coping mechanisms decreasing risk to patient of re-admittance.
[2019-08-21 19:57] VITALS: BP 119/78
[2019-08-21] MEDS: pantoprazole 40mg Tablet.DR PO SCH (20:17)
--- NOTE | 2019-08-21 21:51 | NUR ---
Nursing Progress note: Legal hold: 5250 Client on involuntary status for SI/HI Report received from BRYAN Zheng with use of SBAR. Why are they here: Pt resides in residential correction for DD. While at a medication appointment, pt endorsed SI with a plan to drown himself r/t to girlfriend relationship problems in the tub and HI towards staff r/t night terrors that tell him to harm the entire world. Pt states "I don't want to hurt my loved ones, they are just grouped into the world, so I won't act on it but the dreams tell me this". Nursing staff assessed at appointment and brought pt into [facility] where he was placed on a hold and brought to [facility]. Assessment What has happened this shift: Pt. awake pacing the carney and requesting medications. 1:1 done at bedisde. Pt. denies SI/HI, A/V H but then replies, "I see people. I help spirits who are trapped on earth cross into the afterlife". Pt. reports feeling tired and went back to sleep after meds. Pt is hyperverbal intrusive with staff. S/I, H/I: Denies. A/VH: Pt. denies but reports seeing spirits. Sleep: Pt. napped x1 ADL's: Independent. Pt. showered today. Group attendance: No Were Meds taken: Yes Any med S/E: None observed or reported. Mental Status Exam Appearance: Disheveled. Eye contact: Direct. Behavior: Bizarre at times. Speech: Normal rate and rhythm, normal tone. Mood: Labile, easily agitated. Affect: Congruent to mood. Thought process: Linear Thought Content: Self-deprecating. Cognition: Well oriented save for occasional delusions. Insight: Fair. Judgment: Poor. Interventions PRN's used: none Therapeutic interventions: 1:1 assessment, establishment of rapport, maintained safe therapeutic milieu, provided active listening with positive feedback, provided medication education and monitored for effects, monitored for change in behavior and provided needed interventions. Q 15 minute safety checks. Restraints/seclusion/emergency medication: N/A Justification of Continued Inpatient Treatment: Continued therapeutic support and medication management needed to provide stabilization, prevent decompensation, improve coping mechanisms decreasing risk to patient of re-admittance.
[2019-08-22 07:30] VITALS: BP 106/54
[2019-08-22] MEDS: ondansetron 4mg rapidly disintigrating tab PO SCH (08:00)
[2019-08-22] MEDS: buPROPion SR 100mg tab PO SCH (08:46)
[2019-08-22] MEDS: montelukast 10mg tablet PO SCH (08:46)
[2019-08-22] MEDS: propranolol 10mg tablet PO SCH ×3 (08:46→20:19)
[2019-08-22] MEDS: lactose-reduced food (Ensure Enlive) - 237ml bottle PO SCH ×3 (08:48→18:16)
[2019-08-22] MEDS: aspirin/acetaminophen/caffeine tablet PO PRN (10:01)
--- NOTE | 2019-08-22 13:20 | NUR ---
Reassessment: Appetite and PO intake appear to fluctuate with 75-100% PO intake and some refusals, over all eating well and drinking 100% of ensure enlive with meals. Will continue to follow. Recommendations: 1) Continue regular diet 2) Continue Ensure Enlive TID 3) Bowel care PRN 4) Weekly wt Addendum: 08/22/19 at [address] Amended: Links added.
--- NOTE | 2019-08-22 17:30 | NUR ---
Nursing Progress note: Legal hold: 5256 Client on involuntary status for SI/HI Report received from BRYAN Singer with use of SBAR. Why are they here: Pt resides in residential residential for DD. While at a medication appointment, pt endorsed SI with a plan to drown himself r/t to girlfriend relationship problems in the tub and HI towards staff r/t night terrors that tell him to harm the entire world. Pt states "I don't want to hurt my loved ones, they are just grouped into the world, so I won't act on it but the dreams tell me this". Nursing staff assessed at appointment and brought pt into [facility] where he was placed on a hold and brought to [facility]. Assessment What has happened this shift: Pt. asleep at start of shift. Pt. came to breakfast late. took medicatiosn except for Zofran. Pt. is hypersomulant, going back to bed after medications. Pt. in bed most of the morning. Pt. became more active after lunch. Pt.'s sandals taken away due to strings and pt. became extremely agitated yelling, "I'm a god, I will destroy all of humanity, this is why I hate people" Pt. became tremulous. RN was able to redirect pt. and pt. calmed down. Pt. wanted to take a shower, but when RN informed pt. he would need to limit it to 15 minutes pt. stated, "I need longer because I do my meditation and astral projection in the shower and if I leave my body I will need a long time". Pt. reports that he attempted to go to group for some time but could not stay he said because he started having hateful thoughts towards the other patients. Pt. states, "I went to my room to calm down". S/I, H/I: Denies. A/VH: Pt. denies but reports seeing spirits. Sleep: Pt. napped x1 ADL's: Independent. Group attendance: No Were Meds taken: Yes Any med S/E: None observed or reported. Mental Status Exam Appearance: Disheveled. Eye contact: Direct. Behavior: Isolative, explosive. Speech: Normal rate and rhythm, normal tone. Mood: Labile, easily agitated but pt. can be pleasant at other times. Affect: Congruent to mood. Thought process: Linear Thought Content: Talks about how he likes to be by himself, can be Self-deprecating at times. Cognition: orientedX4 Insight: Fair. Judgment: Poor. Interventions PRN's used: Excedrin Therapeutic interventions: 1:1 assessment, establishment of rapport, maintained safe therapeutic milieu, provided active listening with positive feedback, provided medication education and monitored for effects, monitored for change in behavior and provided needed interventions. Q 15 minute safety checks. Restraints/seclusion/emergency medication: N/A Justification of Continued Inpatient Treatment: Continued therapeutic support and medication management needed to provide stabilization, prevent decompensation, improve coping mechanisms decreasing risk to patient of re-admittance.
[2019-08-22 20:00] VITALS: BP 123/75
[2019-08-22] MEDS: pantoprazole 40mg Tablet.DR PO SCH (20:19)
--- NOTE | 2019-08-22 21:40 | NUR ---
Nursing Progress note: Legal hold: 5250 Client on involuntary status for SI/HI Report received from BRYAN Singer with use of SBAR. Why are they here: Pt resides in residential jail for DD. While at a medication appointment, pt endorsed SI with a plan to drown himself r/t to girlfriend relationship problems in the tub and HI towards staff r/t night terrors that tell him to harm the entire world. Pt states "I don't want to hurt my loved ones, they are just grouped into the world, so I won't act on it but the dreams tell me this". Nursing staff assessed at appointment and brought pt into [facility] where he was placed on a hold and brought to [facility]. Assessment What has happened this shift: Pt.up in carney at start of shift approached this policy writer sales and asked for HS medication stating "I want to go to sleep." Pt said he was tired and had a bad day angered with people and I feel better when I go to bed. S/I, H/I: Denies. A/VH: Pt. denies but reports seeing spirits. Sleep: Pt. napped x1 ADL's: Independent. Group attendance: No Were Meds taken: Yes Any med S/E: None observed or reported. Mental Status Exam Appearance: Disheveled. Eye contact: Direct. Behavior: Isolative, explosive. Speech: Normal rate and rhythm, normal tone. Mood: Labile, easily agitated but pt. can be pleasant at other times. Affect: Congruent to mood. Thought process: Linear Thought Content: Talks about how he likes to be by himself, can be Self-deprecating at times. Cognition: orientedX4 Insight: Fair. Judgment: Poor. Interventions PRN's used: Excedrin Therapeutic interventions: 1:1 assessment, establishment of rapport, maintained safe therapeutic milieu, provided active listening with positive feedback, provided medication education and monitored for effects, monitored for change in behavior and provided needed interventions. Q 15 minute safety checks. Restraints/seclusion/emergency medication: N/A Justification of Continued Inpatient Treatment: Continued therapeutic support and medication management needed to provide stabilization, prevent decompensation, improve coping mechanisms decreasing risk to patient of re-admittance.
[2019-08-23 08:00] VITALS: BP 126/79
[2019-08-23] MEDS: lactose-reduced food (Ensure Enlive) - 237ml bottle PO SCH ×4 (08:00→18:00)
[2019-08-23] MEDS: loratadine 10mg tablet PO SCH (08:36)
[2019-08-23] MEDS: propranolol 10mg tablet PO SCH ×3 (08:36→19:28)
[2019-08-23] MEDS: montelukast 10mg tablet PO SCH (08:36)
[2019-08-23] MEDS: buPROPion SR 100mg tab PO SCH (08:36)
[2019-08-23] MEDS: aspirin/acetaminophen/caffeine tablet PO PRN (08:58)
--- NOTE | 2019-08-23 15:56 | NUR ---
Nursing Progress note: Legal hold: 5250 Client on involuntary status for SI/HI Report received from BRYAN Singer with use of SBAR. Why are they here: Pt resides in residential alf for DD. While at a medication appointment, pt endorsed SI with a plan to drown himself in alexi tub due to girlfriend relationship problems, he also reported HI towards staff r/t night terrors that tell him to harm the entire world. Pt states "I don't want to hurt my loved ones, they are just grouped into the world, so I won't act on it but the dreams tell me this". Nursing staff assessed at appointment and brought pt into [facility] where he was placed on a hold and brought to [facility]. Assessment What has happened this shift: Patient is observed sleeping at change of shift. He does not wake for breakfast. When he gets up he sits in the carney and pretends he does not hear the tech when she asks him if he wants to eat. When asked later about this patient states I was sleep walking RN gave patient his breakfast and after patient goes to his room and vomits. RN provides peppermint tea. Patient requests to take a shower and patiently waits until the large shower is available. After lunch he eats his whole meal and is very proud stating I ate slowly and I ate my whole meal. My stomach is not upset. Patients demeanor has improved and he is using coping skills. S/I, H/I: Denies. A/VH: denies Sleep: 8hrs NOC ADL's: Independent. Group attendance: Yes Were Meds taken: Yes Any med S/E: None observed or reported. Mental Status Exam Appearance: Disheveled. Eye contact: Direct. Behavior: friendly, cooperative, engaged with others Speech: Normal rate and rhythm, normal tone. Mood: improved, calm Affect: restricted with brighteing Thought process: Linear Thought Content: focused on being calm and eating slow Cognition: orientedX4 Insight: Fair Judgment: fair Interventions PRN's used: Excedrin Therapeutic interventions: 1:1 assessment, establishment of rapport, maintained safe therapeutic milieu, provided active listening with positive feedback, provided medication education and monitored for effects, monitored for change in behavior and provided needed interventions. Q 15 minute safety checks. Restraints/seclusion/emergency medication: N/A Justification of Continued Inpatient Treatment: Continued therapeutic support and medication management needed to provide stabilization, prevent decompensation, improve coping mechanisms decreasing risk to patient of re-admittance.
[2019-08-23] MEDS: ibuprofen 200mg tablet PO PRN (19:28)
[2019-08-23] MEDS: pantoprazole 40mg Tablet.DR PO SCH (19:29)
[2019-08-23 20:52] VITALS: BP 149/83
--- NOTE | 2019-08-23 23:19 | NUR ---
Nursing Progress note: Legal hold: 5250 Client on involuntary status for SI/HI Report received from BRYAN Nixon, with use of SBAR. Why are they here: Pt resides in residential intermediate for DD. While at a medication appointment, pt endorsed SI with a plan to drown himself r/t to girlfriend relationship problems in the tub and HI towards staff r/t night terrors that tell him to harm the entire world. Pt states "I don't want to hurt my loved ones, they are just grouped into the world, so I won't act on it but the dreams tell me this". Nursing staff assessed at appointment and brought pt into [facility] where he was placed on a hold and brought to [facility]. Assessment What has happened this shift: The patient was seen at shift start in the hallway. He reports that he's not feeling well. "I was in the shower, sitting there, when a wave of dark energy flowed over me and I can't remember what happened next. I'm not a good person. I put a curse on someone, but I don't remember who it was." He goes on to say that he tried to remove the curse, "I don't know whether I removed the curse or not." The patient asked for HS meds early, "I'm mad at myself, I want to go to bed, so I don't have to be around people." S/I, H/I: Denies. A/VH: Denies. Sleep: See sleep hours. ADL's: Independent. Group attendance: No groups at night. Were Meds taken: Yes Any med S/E: None observed or reported. Mental Status Exam Appearance: Disheveled, unkempt, malodorous. Eye contact: Direct. Behavior: Isolative, irritable,explosive. Speech: Normal rate and rhythm, normal tone. Mood: Labile, patient can be easily redirected. Affect: Congruent to mood. Thought process: Linear Thought Content: Talks about how he likes to be by himself, can be Self-deprecating at times. Cognition: Oriented X4 Insight: Fair. Judgment: Poor. Interventions PRN's used: Motrin. Therapeutic interventions: 1:1 assessment, establishment of rapport, maintained safe therapeutic milieu, provided active listening with positive feedback, provided medication education and monitored for effects, monitored for change in behavior and provided needed interventions. Q 15 minute safety checks. Restraints/seclusion/emergency medication: N/A Justification of Continued Inpatient Treatment: Continued therapeutic support and medication management needed to provide stabilization, prevent decompensation, improve coping mechanisms decreasing risk to patient of re-admittance.
[2019-08-24 08:00] VITALS: BP 106/70
[2019-08-24] MEDS: buPROPion SR 100mg tab PO SCH (08:47)
[2019-08-24] MEDS: loratadine 10mg tablet PO SCH (08:47)
[2019-08-24] MEDS: propranolol 10mg tablet PO SCH ×3 (08:47→20:19)
[2019-08-24] MEDS: montelukast 10mg tablet PO SCH (08:47)
[2019-08-24] MEDS: lactose-reduced food (Ensure Enlive) - 237ml bottle PO SCH ×3 (08:54→18:00)
[2019-08-24] MEDS: aspirin/acetaminophen/caffeine tablet PO PRN (09:02)
--- NOTE | 2019-08-24 16:25 | NUR ---
Nursing Progress note: Legal hold: 5250 Client on involuntary status for SI/HI Report received from Karey Spaulding RN with use of SBAR. Why are they here: Pt resides in residential long-term for DD. While at a medication appointment, pt endorsed SI with a plan to drown himself r/t to girlfriend relationship problems in the tub and HI towards staff r/t night terrors that tell him to harm the entire world. Pt states "I don't want to hurt my loved ones, they are just grouped into the world, so I won't act on it but the dreams tell me this". Nursing staff assessed at appointment and brought pt into [facility] where he was placed on a hold and brought to [facility]. Assessment What has happened this shift: Patient is observed sleeping at shift change. He is awoken for breakfast and eats with others in the group room. He states that he slept well last night, he is not suffering from night terrors. He takes his medications after explanation of what each one is. He requests to take a shower and is told that there is someone in front of him for showers. He does not get angry and waits for hours without getting upset before getting into the shower. He states that he feels a lot better. He attends groups and remains social throughout the day. S/I, H/I: Denies A/VH: Denies Sleep: 5.75hrs NOC and rested during the day ADL's: Independent Group attendance: yes Were Meds taken: Yes Any med S/E: none observed or reported Mental Status Exam Appearance: disheveled Eye contact: Direct Behavior: friendly and cooperative throughout the day Speech: Normal rate and rhythm, soft tone Mood: happy Affect: congruent to mood Thought process: can perseverate, however easily redirected Thought Content: no delusional thought content expressed today Cognition: A/Ox3 Insight: Fair Judgment: fair Interventions PRN's used: Excedrin Therapeutic interventions: 1:1 assessment, establishment of rapport, maintained safe therapeutic milieu, provided active listening with positive feedback, provided medication education and monitored for effects, monitored for change in behavior and provided needed interventions. Q 15 minute safety checks. Restraints/seclusion/emergency medication: N/A Justification of Continued Inpatient Treatment: Continued therapeutic support and medication management needed to provide stabilization, prevent decompensation, improve coping mechanisms decreasing risk to patient of re-admittance.
[2019-08-24] MEDS: mag hydrox/Alum hydrox/simeth 30ml oral suspension PO PRN (18:49)
[2019-08-24] MEDS: pantoprazole 40mg Tablet.DR PO SCH (20:18)
[2019-08-24 20:19] VITALS: BP 122/65
[2019-08-24] MEDS: hydrOXYzine 25 MG tablet PO PRN ×2 (20:36→21:42)
--- NOTE | 2019-08-25 01:32 | NUR ---
Nursing Progress note: Legal hold: 5250 Client on involuntary status for DTO/DTS Report received from BRYAN Calzada with use of SBAR Why are they here: Pt resides in residential custodial for DD. While at a medication appointment, pt endorsed SI with a plan to drown himself r/t to girlfriend relationship problems in the tub and HI towards staff r/t night terrors that tell him to harm the entire world. Pt states "I don't want to hurt my loved ones, they are just grouped into the world, so I won't act on it but the dreams tell me this". Nursing staff assessed at appointment and brought pt into [facility] where he was placed on a hold and brought to [facility]. Assessment What has happened this shift: Pt walking around unit, engaging with staff and peers at change of shift. Pt approached this RN requesting "something to ease his stomach"; Maalox administered to good effect. Pt brightens often and jokes with staff multiple times this evening; he is playing "pranks" where he stands behind nurse then makes a farting noise and giggles. Pt also demonstrates his ninja poses for this RN. During 1:1, pt denies all symptoms except anxiety which is 9/10. Pt states he feels this way because he was just introduced to a peer's mom by the peer, and meeting new people makes him nervous. Pt felt nauseous soon after relaying this to the RN and vomited x1. Pt requested something to ease anxiety and help him sleep. RN provided warm blankets, peppermint tea, and order for Atarax. RN sat and talked with pt until nausea resolved and anxiety lessened. Pt went to sleep shortly after medication pass but was up a few times to request snacks and tea; pt stated his anxiety was better, rating it a 4/10. S/I, H/I: Denies A/VH: Denies Sleep: See Sleep Assessment ADL's: Independent Group attendance: N/A Were Meds taken: Yes Any med S/E: None observed nor reported Mental Status Exam Appearance: Hair disheveled, wearing unit green scrubs and nonskid socks Eye contact: Direct Behavior: Walking around unit, engaging with staff and peers, attending HS snack Speech: Normal rate and rhythm, soft tone Mood: Anxious Affect: Restricted with brightening Thought process: perseverates on requests thinking they will not be obliged, Wanting a sleeping aid Thought Content: No delusional or hallucinatory thought content expressed Cognition: A/Ox3 (off for time) Insight: Fair Judgment: Fair Interventions PRN's used: Atarax x 2, Maalox x1 Therapeutic interventions: 1:1 assessment, establishment of rapport, maintained safe therapeutic milieu, provided active listening with positive feedback, provided medication education and monitored for effects, monitored for change in behavior and provided needed interventions. Q 15 minute safety checks. Restraints/seclusion/emergency medication: N/A Justification of Continued Inpatient Treatment: Continued therapeutic support and medication management needed to provide stabilization, prevent decompensation, improve coping mechanisms decreasing risk to patient of re-admittance.
[2019-08-25 08:00] VITALS: BP 101/55
[2019-08-25] MEDS: lactose-reduced food (Ensure Enlive) - 237ml bottle PO SCH ×2 (08:00→13:00)
[2019-08-25] MEDS: montelukast 10mg tablet PO SCH (08:37)
[2019-08-25] MEDS: loratadine 10mg tablet PO SCH (08:37)
[2019-08-25] MEDS: propranolol 10mg tablet PO SCH ×2 (08:37→13:31)
[2019-08-25] MEDS: buPROPion SR 100mg tab PO SCH (08:37)
[2019-08-25] MEDS: aspirin/acetaminophen/caffeine tablet PO PRN (08:49)
--- NOTE | 2019-08-25 11:21 | NUR ---
Marck Ferrer, horse stud manager (ph# [phone]) and informed her that Ct is getting discharged today. She gave an estimated time of 2 PM to pick him up. LINDA Ford Lic # [id number]
[2019-08-25] MEDS ORDERED: PROP10TA10 PO (13:10)
[2019-08-25] MEDS ORDERED: HYDR-3686 PO (13:10)
[2019-08-25] MEDS ORDERED: BUPR100T7 PO (13:10)
--- NOTE | 2019-08-25 16:10 | NUR ---
PATIENT DISCHARGE NOTE Patient is discharged at 1555, he left the unit accompanied by [facility] TAD Material Attendant. He will be transported back to his half-way. Discharge instructions given and patient provided opportunity to ask questions. Prescriptions printed and provided to patient. Patients valuables are provided back to patient. Patients mood has improved since admit and he is no longer wanting to harm himself or others. Patient is excited about going home and thankful for the help he has received. Patient is not provided prescriptions for nicotine replacement because he is not a nicotine user. Follow up appointment with Dr Jennings at [facility] has been scheduled and date provided to patient.
[2019-09-09] MEDS ORDERED: paliperidone palmitate inj 234 MG/1.5 ML SYRINGE IM SCH (08:00)
[2019-09-09] MEDS ORDERED: non-formulary drug (Aripiprazole (Abilify Maintena) 400 MG) IM SCH (08:00)
== END 2019-08-25 15:55 | disposition home or self-care (01) | DRG 750 ==
LOC: ADULT MH 15:13
PROVIDERS: ADMIT Psychiatry & Neurology Psychiatry; ATTEND Psychiatry & Neurology Psychiatry
DX: F25.0 Schizoaffective disorder, bipolar type (principal); R45.851 Suicidal ideations; F12.90 Cannabis use, unspecified, uncomplicated; F43.12 Post-traumatic stress disorder, chronic; J45.909 Unspecified asthma, uncomplicated; K21.9 Gastro-esophageal reflux disease without esophagitis; Z79.899 Other long term (current) drug therapy; Z88.8 Allergy status to other drugs, medicaments and biological substances
CPT/HCPCS: 36415; 80061; 83036; 87081; 99285; J0780; Z7610

== ENCOUNTER 2019-09-25 08:41 | Inpatient (IN) | payer MEDICAID ==
[~2019-09-25] VITALS: Ht 180.3 cm; Wt 68.3 kg
[~2019-09-25 08:41] MED LIST: ARIP400S3 IM; BUPR100T7 PO; HYDR-3686 PO; IBUP-1984 PO; LORA10TA7 PO; MONT10TA24 PO; OMEP20TA23 PO; ONDA8TAB12 PO; PALI234D IM; PROP10TA10 PO; [UNRECOGNIZED DRUG - CODE] PO
[2019-09-25] MEDS ORDERED: loperamide 2mg capsule PO PRN (11:55)
[2019-09-25] MEDS: hydrOXYzine 25 MG tablet PO PRN ×2 (13:26→20:07)
[2019-09-25] MEDS: acetaminophen 325mg tablet PO PRN ×2 (13:26→18:06)
[2019-09-25] MEDS: mag hydrox/Alum hydrox/simeth 30ml oral suspension PO PRN (13:26)
[2019-09-25] MEDS ORDERED: ondansetron 4mg rapidly disintigrating tab PO PRN (16:00)
[2019-09-25] MEDS ORDERED: paliperidone palmitate 156 mg/ml inj.**IM only IM ONE (16:30)
[2019-09-25] MEDS ORDERED: aripiprazole 400mg suspension ER syringe IM ONE (16:35)
[2019-09-25] MEDS ORDERED: paliperidone palmitate inj 234 MG/1.5 ML SYRINGE IM ONE (17:30)
--- NOTE | 2019-09-25 18:30 | NUR ---
Admit note: Pt is admitted to the unit. He is brought in WC from [facility] rolloff driver accompanied by this marine underwriter, 2 security guards and HARRIET Duckworth. He is cooperative with care and is safety checked, skin checked, no wounds or compromises noted. He had a shower and changed in to [facility] scrubs. All items inventoried, paperwork discussed, all questions were answered and admit paperwork completed and signed. Pt was given a peanut butter and jelly sandwich and some juice. Pt is pleasant and cooperative with care. He reports that he hears voices that are command hallucinations that tell him to hurt himself and are mean to him. He is seen resting intermittently and participates in afternoon group. section leader and machine setter reports that the patient is saying "dark things and that he wants to hurt himself" during group. Pt appears anxious and c/o neck pain. PRN hydroxyzine, Tylenol x2 given. Pt last received his invega and Abilify injections at [facility] on 08/10/19. He missed his August injection. Abilify maintaina given per order. He is not a smoker. Medications reconciled with Carissa, front of house manager ([phone]). Addendum: 09/25/19 at 1844 by Gerda Barraza RN [id number] written by who writes that Pt states that he would be "better of " and that he was going to get the "grim reaper to kill" either his house staff or her family member. When Pt was asked about this he stated "she tried to get me to do something I did n't want to do." I can control the grim reaper. I don't want to hurt anyone because I would never be able to forgive myself."
[2019-09-25 19:55] VITALS: BP 97/62
[2019-09-25] MEDS: propranolol 10mg tablet PO SCH (20:07)
[2019-09-25] MEDS ORDERED: aripiprazole 400mg suspension ER syringe IM SCH (21:00)
--- NOTE | 2019-09-26 02:58 | NUR ---
Nursing Progress Note: Legal hold:5150 Client on involuntary status for DTS/DTO. Report received from Donita with use of SBAR. Why are they here: 5150 written by [place] who writes that Pt states that he would be "better of " and that he was going to get the "grim reaper to kill" either his house staff or her family member. When Pt was asked about this he stated "she tried to get me to do something I did n't want to do." I can control the grim reaper. I don't want to hurt anyone because I would never be able to forgive myself." Assessment What has happened this shift: Pt awake at start of shift. He follows staff around with multiple requests. Pt asked to have a shower pt already had a shower today. When request refused pt became very angry. Said he was the devil and had the power to kill people with his thoughts. Pt crossed his eyes and said that is what happens when he is angry. Pt followed staff around the unit saying things about how angry he was. His behavior seem to be manipulative trying to get his way to have a shower. Limit set Pt encouraged to go to his room till he could stop saying unpleasant things. Pt went to his room and came out a short time later apologized for his behavior and was much more pleasant. S/I, H/I: Denies SI but says he has the power to kill people with his mind. A/VH: [] Sleep: Asleep at this time ADL's: Independent. Group attendance: NA Were meds taken: Yes Any Med side effects: No Mental Status Exam Appearance: Wearing hospital scrubs Eye contact: Intense at times Behavior: Lots of somatic c/o and constant requests Speech: low volume mumbles at times Mood: labile Affect: Flat Thought process: Slow delusional at times Thought Content: His carter to hurt people Cognition: poor Insight: poor Judgment: poor Interventions PRN's used: Atarax Therapeutic interventions: 1:1 therapeutic assessment, maintained safe therapeutic milieu, provided active listening with positive reinforcement, provided medication administration/education/monitoring as needed; Q15 safety checks. Restraints/seclusion/emergency medication: N/A Justification of Continued Inpatient Treatment: Continued therapeutic support and medication management needed to provide stabilization, prevent decompensation, improve coping mechanisms decreasing risk to patient and re-admittance.
[2019-09-26] MEDS: loratadine 10mg tablet PO SCH (07:26)
[2019-09-26] MEDS: acetaminophen 325mg tablet PO PRN (07:26)
[2019-09-26] MEDS: propranolol 10mg tablet PO SCH ×4 (07:26→20:31)
[2019-09-26] MEDS: LORazepam 1 MG tablet PO PRN ×2 (07:26→20:31)
[2019-09-26] MEDS: buPROPion SR 150mg tablet PO SCH (07:26)
[2019-09-26] MEDS: pantoprazole 40mg Tablet.DR PO SCH (07:26)
[2019-09-26] MEDS: montelukast 10mg tablet PO SCH (07:26)
[2019-09-26 08:00] VITALS: BP 88/44
--- NOTE | 2019-09-26 12:42 | NUR ---
Nursing Progress Note: [place] Legal hold:5150 Client on involuntary status for DTS/DTO. Report received from Tonya Vidal with use of SBAR. Why are they here: 5150 written by [place] who writes that Pt states that he would be "better of " and that he was going to get the "grim reaper to kill" either his house staff or her family member. When Pt was asked about this he stated "she tried to get me to do something I didn't want to do." I can control the grim reaper. I don't want to hurt anyone because I would never be able to forgive myself." Assessment What has happened this shift: Pt was in bed at change of shift. He is pleasant and cooperative with care and takes his medications without incident. He took a 45 minute shower this morning and afterward, c/o pain and redness on his penis. Assessment findings are some redness noted on the distal shaft superior to the meatus, however, there were no open sores, lesions or discharge noted. Provider informed of this and conservative measures of monitoring it were recommended. Pt states that he might have irritated his skin trying to clean himself in the shower. He denies SI/HI, A/VH, however he does reprot some intrusive thoughts of wanting to hurt himself. He was slightly anxious and reported feeling depressed and "edgy", PRN Ativan was administered. Pt had low BP this morning of 88/40, so propranolol was held. Pt reported pain in his neck and PRN Tylenol was administered. Pt is easily redirectable and is seen ambulating in the halls and reading a book in the TV room. Pt is in the community room for all meals and reports that he ate all of his lunch today. He did not attend morning group. He is also seen before lunch talking to Sandy Hernandez LCSW in the TV room. No distress observed. Will continue to monitor. S/I, H/I: Denies A/VH: reports intrusive thoughts of hurting himself, bu denies hallucinations. Sleep: up all shift ADL's: Independent, but need prompting Group attendance: No Were meds taken: Yes Any Med side effects: None noted or reported Mental Status Exam Appearance: Wearing hospital scrubs, somewhat disheveled, unshaven and hair unkempt Eye contact: Intense at times Behavior: Lots of somatic c/o and constant requests Speech: low volume mumbles at times Mood: labile Affect: Flat with intermittent brightening Thought process: Slow, delusional at times Thought Content: fixed delusions Cognition: poor Insight: poor Judgment: poor Interventions PRN's used: Atarax Therapeutic interventions: 1:1 therapeutic assessment, maintained safe therapeutic milieu, provided active listening with positive reinforcement, provided medication administration/education/monitoring as needed; Q15 safety checks. Restraints/seclusion/emergency medication: N/A Justification of Continued Inpatient Treatment: Continued therapeutic support and medication management needed to provide stabilization, prevent decompensation, improve coping mechanisms decreasing risk to patient and re-admittance.
--- NOTE | 2019-09-26 13:56 | NUR ---
SS met w/pt and completed Psychosocial Assessment. Pt is LPS conserved via [facility] therefore not able to self consent. SS had t/c with pt's conservator Christin Martino @ [phone] and reviewed pt's tp with her, per t/c pt's always had SI and commanding AH and had done fairly well with current medication regiment. Conservator believes that pt decompensated because he missed his appointment w/[facility] and therefore did not get his injectable on time. SS faxed conservator pt's TP & PEPPER for her signature. Plan: SS will coordinate dcp w/[facility], [facility], LPS Conservator & sr. manager marketing Addendum: 09/26/19 at 1407 by Mary Castillo SS Amended: Links added.
[2019-09-26 20:52] VITALS: BP 122/82
[2019-09-27] MEDS: ibuprofen tablet 400 MG TABLET PO PRN (00:28)
[2019-09-27] MEDS: hydrOXYzine 25 MG tablet PO PRN (00:28)
--- NOTE | 2019-09-27 01:40 | NUR ---
Nursing Progress Note: Legal hold:5150 Client on involuntary status for DTS/DTO. Report received from Donita with use of SBAR. Why are they here: 5150 written by [place] who writes that Pt states that he would be "better of " and that he was going to get the "grim reaper to kill" either his house staff or her family member. When Pt was asked about this he stated "she tried to get me to do something I did n't want to do." I can control the grim reaper. I don't want to hurt anyone because I would never be able to forgive myself." Assessment What has happened this shift: The patient was found in his room reading a book. When asked how he's doing, the patient responded that he's angry. He would not explain what made him angry, but then he started shaking, like he was getting worked up to something. Nothing happened. He said, "I want you to leave now, I've said enough." The patient went back to reading his book and talking to himself. He was happy to take his medication. S/I, H/I: Denies SI, but makes homicidal remarks. A/VH: Does not answer. Sleep: See sleep hours. ADL's: Independent. Group attendance: No groups at night Were meds taken: Yes Any Med side effects: No Mental Status Exam Appearance: Disheveled odorous man wearing dirty hospital scrubs Eye contact: Intense at times; absent at other times Behavior: Lots of somatic c/o and constant requests Speech: low volume mumbles at times Mood: labile Affect: Angry Thought process: Slow delusional at times Thought Content: His carter to hurt people Cognition: poor Insight: poor Judgment: poor Interventions PRN's used: Atarax, Ativan Therapeutic interventions: 1:1 therapeutic assessment, maintained safe therapeutic milieu, provided active listening with positive reinforcement, provided medication administration/education/monitoring as needed; Q15 safety checks. Restraints/seclusion/emergency medication: N/A Justification of Continued Inpatient Treatment: Continued therapeutic support and medication management needed to provide stabilization, prevent decompensation, improve coping mechanisms decreasing risk to patient and re-admittance.
[2019-09-27] MEDS: propranolol 10mg tablet PO SCH ×3 (08:00→21:00)
--- NOTE | 2019-09-27 08:13 | NUR ---
Nursing Note: Pt refused AM VS, several attempts made and refused labs. This commercial loan underwriter attempted to give pt AM medications, but pt refused to respond. When pt touched on his shoulder he flinched, but did not speak or look at this commercial loan underwriter. Will continue to monitor.
[2019-09-27 10:15] VITALS: BP 94/62
[2019-09-27] MEDS ORDERED: LORazepam 0.5 MG tablet PO ONE (10:20)
[2019-09-27 10:25] VITALS: BP 109/62
[2019-09-27] MEDS: buPROPion SR 150mg tablet PO SCH (10:25)
[2019-09-27] MEDS: loratadine 10mg tablet PO SCH (10:25)
[2019-09-27] MEDS: pantoprazole 40mg Tablet.DR PO SCH (10:25)
[2019-09-27] MEDS: montelukast 10mg tablet PO SCH (10:26)
--- NOTE | 2019-09-27 10:50 | NUR ---
Nursing Note: Notified Dr. Cantu that at 1015 pt's BP 94/62, HR 138, and O2 sats were low 89-90%. Pt was not SOB or cyanotic. Received order for 0.5 mg Ativan one time dose. VS taken at 1025, BP 109/62, HR 87, and O2 94-98%. Dr. Cantu ordered all doses of Propranolol held for today. Will continue to monitor.
--- NOTE | 2019-09-27 11:11 | NUR ---
SS met w/pt this morning and gathered additional information to supplement pt's Psychosocial Assessment and engaged pt in reviewing and discussing his TP. Per session pt signed TP & PEPPER. Pt verbalized significant self hatred, this self hatred appears to have began sometime in childhood; pt reports as a child "I used to dig my nails into my neck to draw blood, this was the only way to release the anger and hatred I have for myself. Now I will punch myself, I have cut my arm, and I have also hurt others badly. I don't want to hurt anyone, so I will hurt myself." In addition, pt also reports feeling that his family had abandoned him, "they put me in a halfway and left me there." Plan: SS to continue to provide opportunity vis 1:1 support for pt to verbalize his emotions & thoughts. Mary Castillo LCSW Addendum: 09/27/19 at 1151 by Mary STEINBERG Amended: Links added.
--- NOTE | 2019-09-27 15:40 | NUR ---
T/C with Carissa- housekeeper caregiver @ [facility]. Per t/c pt can rt to after d/c, will provide transport home. Carissa provided some childhood developmental, family & psychiatric history for pt's bio-psychosocial assessment. Plan: SS to contact conservator to request copies of psych eval completed by the [facility]. Addendum: 09/27/19 at 1543 by Mary Castillo SS Amended: Links added.
[2019-09-27] MEDS: LORazepam 1 MG tablet PO PRN (16:30)
--- NOTE | 2019-09-27 18:07 | NUR ---
Nursing Progress Note: Legal hold:5150 Client on involuntary status for DTS/DTO. Report received from HARRIET Sánchez with use of SBAR. Why are they here: 5150 written by [place] who writes that Pt states that he would be "better of " and that he was going to get the "grim reaper to kill" either his house staff or her family member. When Pt was asked about this he stated "she tried to get me to do something I didn't want to do." I can control the grim reaper. I don't want to hurt anyone because I would never be able to forgive myself." Assessment What has happened this shift: Pt sleeping at the change of shift. He would not answer staff when they attempted to wake him for VS, labs, and breakfast. This credit underwriter attempted to wake him for medication administration and he would not respond, but flinched when touched. When pt woke up at 1000, VS were taken, please see preceding note. Pt refused labs. At 10:00, pt walked to the group room without difficulty. Once in the group room he was acting somnolent and saying he could not eat the breakfast. Yogurt and juice was provided and he also ate the breakfast. Pt has a labile effect. He is easily triggered when he does not get the caffeine he wants. During assessment the pt talked about communicating with demamauri and his grandparents. He indicated that he knows his grandparents would not want him to kill himself. He also talked about his self-hatred for the things he has done to others. He said that if others will not forgive him, he cannot forgive himself. He said he hates himself and wants to be hit by a train. He then went on to talk about how he cannot hurt himself because of what that would do to his girlfriend. Encouraged the pt to concentrate on the protective factors in his life. He talked about having night terrors at night and he cannot wake up until they are over. The pt had an episode of agitation in the afternoon, two nurses worked with him in order to redirect him. He eventually agreed to take Ativan. The pt calmed and was later seen socializing with pts in the recreation room. Will continue to monitor. S/I, H/I: Passive, wants to be , but does not want to hurt others by killing himself. A/VH: Talks about communicating with demamauri and his grandparents. Sleep: Slept until 1000 am ADL's: Independent, but need prompting Group attendance: Went to the afternoon group Were meds taken: Yes Any Med side effects: None noted or reported Mental Status Exam Appearance: Hospital scrubs, pineda, has blue bunny in his scrub top pocket Eye contact: Direct, intense at times Behavior: Agitation and anger at times, Somatic complaints Speech: low volume mumbles at times Mood: Depressed Affect: Labile Thought process: Delusions Thought Content: Ongoing delusions Cognition: poor Insight: poor Judgment: poor Interventions PRN's used: Ativan x 2 Therapeutic interventions: 1:1 therapeutic assessment, maintained safe therapeutic milieu, provided active listening with positive reinforcement, redirect pt and provided opportunity for pt to calm himself, provided medication administration/education/monitoring as needed; Q15 safety checks. Restraints/seclusion/emergency medication: N/A Justification of Continued Inpatient Treatment: Continued therapeutic support and medication management needed to provide stabilization, prevent decompensation, improve coping mechanisms decreasing risk to patient and re-admittance.
[2019-09-27 20:00] VITALS: BP 106/62
--- NOTE | 2019-09-27 22:04 | NUR ---
Nursing Progress Note: Legal hold:5150 Client on involuntary status for DTS/DTO. Report received from Donita with use of SBAR. Why are they here: 5150 written by [place] who writes that Pt states that he would be "better of " and that he was going to get the "grim reaper to kill" either his house staff or her family member. When Pt was asked about this he stated "she tried to get me to do something I did n't want to do." I can control the grim reaper. I don't want to hurt anyone because I would never be able to forgive myself." Assessment What has happened this shift: The patient was found in his room in bed at shift change. Attempts were made to get the patient to wake up and talk, but when I touched him, he started shaking and yelled at me to leave him alone. The patient's Propanolol held per MD instructions. The patient remains asleep at this time. S/I, H/I: Denies SI, but makes homicidal remarks. A/VH: Does not answer. Sleep: See sleep hours. ADL's: Independent. Group attendance: No groups at night Were meds taken: Yes Any Med side effects: No Mental Status Exam Appearance: Disheveled odorous man wearing dirty hospital scrubs Eye contact: No eye contact tonight Behavior: Sleeping Speech: low volume mumbles at times Mood: labile Affect: Angry Thought process: Slow delusional at times Thought Content: His carter to hurt people Cognition: poor Insight: poor Judgment: poor Interventions PRN's used: Therapeutic interventions: 1:1 therapeutic assessment, maintained safe therapeutic milieu, provided active listening with positive reinforcement, provided medication administration/education/monitoring as needed; Q15 safety checks. Restraints/seclusion/emergency medication: N/A Justification of Continued Inpatient Treatment: Continued therapeutic support and medication management needed to provide stabilization, prevent decompensation, improve coping mechanisms decreasing risk to patient and re-admittance.
[2019-09-28 08:00] VITALS: BP 111/73
[2019-09-28] MEDS: loratadine 10mg tablet PO SCH (08:20)
[2019-09-28] MEDS: montelukast 10mg tablet PO SCH (08:20)
[2019-09-28] MEDS: propranolol 10mg tablet PO SCH ×3 (08:21→20:42)
[2019-09-28] MEDS: pantoprazole 40mg Tablet.DR PO SCH (08:21)
[2019-09-28] MEDS: buPROPion SR 150mg tablet PO SCH (08:21)
--- NOTE | 2019-09-28 12:13 | NUR ---
SW/Art Therapy 1:1 - The below named therapist, met with patient per request and collaboration from the treatment team. Intervention: Provided art therapy to identify and express emotional distress together with attuned empathic listening using bi-lateral sound. Patient reported a reduction in his emotional distress having an initial SUDS (Subjective level of distress scale) of 11. Following the session and identifying a safe resource, patient identified a reduction from 11 to 2. Patient noted: "I have been a prisoner to my fear and my hatred towards those who have hurt me. I don't want my anger to control me anymore. I want to control my anger." Plan: To provide patient with continued support from the treatment team and group milieu SHADIA Barton (Alena Marie) Marriage Family Therapist #[id number] [facility] Art Therapist Addendum: 09/28/19 at 1223 by Talisha Moore Amended: Links added.
--- NOTE | 2019-09-28 12:22 | NUR ---
SS had t/c with [facility] office to coordinate aftercare plan for pt. Per t/c pt is scheduled to see Dr. Jennings @ [facility] on 10/06 @ 2:30 PM. SS also advocated for pt to be assigned a therapist as pt had responded positively to 1:1 art therapy interventions, pt's [facility] CM will discuss this option with pt when she meets w/pt. Mary Castillo LCSW Addendum: 09/28/19 at 1234 by Mary STEINBERG Amended: Links added.
--- NOTE | 2019-09-28 16:28 | NUR ---
Nursing Progress Note: Legal hold:vol Report received from Princess with use of SBAR. Why are they here: [id number] written by [place] who writes that Pt states that he would be "better of " and that he was going to get the "grim reaper to kill" either his house staff or her family member. When Pt was asked about this he stated "she tried to get me to do something I didn't want to do." I can control the grim reaper. I don't want to hurt anyone because I would never be able to forgive myself." Assessment What has happened this shift: Patient is observed in his room at change of shift. He wakes and tells this RN that he did not sleep well last night due to night terrors. Patient takes his medications without any issue. He joins others for breakfast and then takes a shower to meditate. Patient threw up after lunch and reports nausea. Zofran administered, patient states he threw up again after that. Patient is given peppemint tea and encouraged to rest. Patient is resitive and attention seeking. Patient continues to have attention seeking behaviors in the afternoon with a decrease in somatic complaints. Patient signs in voluntary today and participates in brain spotting. S/I, H/I: none reported A/VH: none reported Sleep: 9.25hrs NOC ADL's: Independent. Group attendance: yes Were meds taken: Yes Any Med side effects: No Mental Status Exam Appearance: Disheveled Eye contact: direct Behavior: attention seeking Speech: soft tone, normal rate and rhythm Mood: content Affect: congruent to mood Thought process: tangential Thought Content: own needs Cognition: poor Insight: poor Judgment: poor Interventions PRN's used: Therapeutic interventions: 1:1 therapeutic assessment, maintained safe therapeutic milieu, provided active listening with positive reinforcement, provided medication administration/education/monitoring as needed; Q15 safety checks. Restraints/seclusion/emergency medication: N/A Justification of Continued Inpatient Treatment: Continued therapeutic support and medication management needed to provide stabilization, prevent decompensation, improve coping mechanisms decreasing risk to patient and re-admittance.
[2019-09-28] MEDS: LORazepam 1 MG tablet PO PRN (19:26)
[2019-09-28 20:00] VITALS: BP 112/76
[2019-09-28] MEDS: aripiprazole 5mg tablet PO SCH (20:42)
--- NOTE | 2019-09-29 00:32 | NUR ---
Nursing Progress Note: Legal hold:vol Report received from Zheng with use of SBAR. Why are they here: [id number] written by [place] who writes that Pt states that he would be "better of " and that he was going to get the "grim reaper to kill" either his house staff or her family member. When Pt was asked about this he stated "she tried to get me to do something I didn't want to do." I can control the grim reaper. I don't want to hurt anyone because I would never be able to forgive myself." Assessment What has happened this shift: Pt was walking the halls during shift change asking who his nurse was. This customs entry writer introduced self to patient. He was constantly coming in to the nurse's room and asking for something for sleep stating that "I haven't slept for a very long time". But sleep assessment shows that he has been sleeping between 6.5-9.25 hours of sleep. An Ativan was given but patient was still claiming that he needed something for sleep. He demonstrates a lot of attention seeking and needs constant direction. He later complains of chest pain and claims that it started once he stopped taking caffeine. Pt denies any A/H or V/H but states that "I have an implant in the back of my head that controls what I do and say. But it only happens when this noise comes on." He states it was implanted by strange creatures when he was about 9 years old. Pt eventually went to sleep and slept for most of the night. S/I, H/I: none reported A/VH: yes Sleep: see sleep assessment ADL's: Independent. Group attendance: none during rn shift mgr Were meds taken: Yes Any Med side effects: No Mental Status Exam Appearance: appropriate, wearing green scrubs, hair seems unwashed Eye contact: direct Behavior: attention seeking Speech: soft tone, normal rate and rhythm Mood: content Affect: congruent to mood Thought process: tangential Thought Content: own needs, wanting something for sleep Cognition: poor Insight: poor Judgment: poor Interventions PRN's used: Therapeutic interventions: 1:1 therapeutic assessment, maintained safe therapeutic milieu, provided active listening with positive reinforcement, provided medication administration/education/monitoring as needed; Q15 safety checks. Restraints/seclusion/emergency medication: N/A Justification of Continued Inpatient Treatment: Continued therapeutic support and medication management needed to provide stabilization, prevent decompensation, improve coping mechanisms decreasing risk to patient and re-admittance.
[2019-09-29] MEDS: pantoprazole 40mg Tablet.DR PO SCH (07:56)
[2019-09-29] MEDS: buPROPion SR 150mg tablet PO SCH (07:56)
[2019-09-29] MEDS: montelukast 10mg tablet PO SCH (07:56)
[2019-09-29] MEDS: loratadine 10mg tablet PO SCH (07:56)
[2019-09-29 08:00] VITALS: BP 113/61
[2019-09-29] MEDS: propranolol 10mg tablet PO SCH ×3 (08:52→20:46)
[2019-09-29] MEDS: mag hydrox/Alum hydrox/simeth 30ml oral suspension PO PRN (10:05)
[2019-09-29] MEDS: LORazepam 1 MG tablet PO PRN (13:36)
[2019-09-29 15:57] LABS: CLARITY,URINE CLEAR (Clear); COLOR,URINE YELLOW (Yellow); GLUCOSE, URINE NEGATIVE (Neg); KETONES,URINE NEGATIVE (Neg); LEUKOCYTE ESTERASE ,URINE NEGATIVE (Neg); NITRITES, URINE NEGATIVE (Neg); OCCULT BLOOD,URINE NEGATIVE (Neg); PROTEIN,URINE NEGATIVE (Neg)
[2019-09-29 16:00] LABS: UA COLLECTION TYPE CLN CATCH MIDSTREAM
[2019-09-29] MEDS: magnesium hydroxide 30ml (MOM) UD suspension PO PRN (17:06)
--- NOTE | 2019-09-29 18:16 | NUR ---
Nursing Progress Note: Legal hold:vol Report received from Princess with use of SBAR. Why are they here: [id number] written by [place] who writes that Pt states that he would be "better of " and that he was going to get the "grim reaper to kill" either his house staff or her family member. When Pt was asked about this he stated "she tried to get me to do something I didn't want to do." I can control the grim reaper. I don't want to hurt anyone because I would never be able to forgive myself." Assessment What has happened this shift: Patient is observed sleeping at change of shift. Patient refuses his vitals as he does each morning. He is woken to take his morning medications and does so without issue. RN held inderal until vitals were obtained. Patient continues with attention seeking behaviors and numerous somatic complaints through out the day. After breakfast patient states that he feels depressed. Time is spent allowing patient to discuss his feelings which does not make him feel better. Patient reports anxiety, Ativan administered. Patient then states he is suffering caffeine withdrawals. Patient complains of having pain when urinating and a sore on his penis. Assessed by HARRIET Zheng and UA kade. Patient reports it is caused from the soap. Patient was offered soap yesterday for shower to which he refused, no soap was in the bathroom. Patient reports being constipated and requests MOM. Patient states that he is feeling anxious and requests Ativan. RN encouraged patient to identify one coping skill that patient has learned during last stay and current stay, patient angrily stated that he could not remember one because of his memory issues. S/I, H/I: none reported A/VH: none reported Sleep: 6.5hrs NOC ADL's: Independent. Group attendance: yes Were meds taken: Yes Any Med side effects: No Mental Status Exam Appearance: Hair brushed, unwashed Eye contact: direct Behavior: attention seeking Speech: varied Mood: labile Affect: congruent to mood Thought process: tangential Thought Content: own needs, somatic complaints Cognition: poor Insight: poor Judgment: poor Interventions PRN's used: MOM, Maalox, Ativan Therapeutic interventions: 1:1 therapeutic assessment, maintained safe therapeutic milieu, provided active listening with positive reinforcement, provided medication administration/education/monitoring as needed; Q15 safety checks. Restraints/seclusion/emergency medication: N/A Justification of Continued Inpatient Treatment: Continued therapeutic support and medication management needed to provide stabilization, prevent decompensation, improve coping mechanisms decreasing risk to patient and re-admittance.
[2019-09-29 20:00] VITALS: BP 135/72
[2019-09-29] MEDS ORDERED: hydrOXYzine 25 MG tablet PO ONE (20:15)
[2019-09-29] MEDS: aripiprazole 5mg tablet PO SCH (20:46)
--- NOTE | 2019-09-30 00:52 | NUR ---
Nursing Progress Note: Legal hold: Vol Report received from BRYAN Zheng with use of SBAR. Why are they here: [id number] written by [place] who writes that Pt states that he would be "better of " and that he was going to get the "grim reaper to kill" either his house staff or her family member. When Pt was asked about this he stated "she tried to get me to do something I didn't want to do." I can control the grim reaper. I don't want to hurt anyone because I would never be able to forgive myself." Assessment What has happened this shift: Pt showering shortly after change of shift. Pt asked to come out because had spent a significant amount of time and other pt's were requesting the shower. Pt told this RN, "I meditate in the shower." During 1:1, pt informed that UA results came back negative; pt continued to perseverate on soap being the issue behind his penis being raw. RN educate to try not to aggravate the skin further by touching and that staff will continue to monitor. Pt states he has been sad today because it is his "birthday and I am in here and not at home." RN discussed feelings with pt and he said he was "feeling better than earlier today" and that "it's not so bad here". Pt shared card and stuffed animal he received to celebrate turning 29. Pt states "spirits visit me, but they are real, and they are nice to me"; pt states he would like Atarax to help him sleep this evening, and approached multiple nurses with the request, multiple times. Pt had lengthy, detailed discussion of the game Minecraft which "I love playing. I am a master." approved Atarax 50mg Once. S/I, H/I: Denies Both A/VH: Denies AH, +VH ("spirits visit me, but they are real, and they are nice to me") Sleep: See Sleep Assessment ADL's: Independent; Assisted pt in clipping nails this evening Group attendance: N/A Were meds taken: Yes Any Med side effects: None reported nor noted Mental Status Exam Appearance: Freshly showered, wearing unit scrubs and nonskid socks Eye contact: Direct Behavior: Attention seeking, Attended HS Snack, Watching TV, Pacing [place] Speech: Slightly pressured, Mumbled Mood: "Calm", Depression 4/10, Anxiety 0.5/10 Affect: Blunted Thought process: Tangential Thought Content: Minecraft, Birthday, Feeling better overall Cognition: Delayed Insight: Poor Judgment: Poor Interventions PRN's used: Atarax Therapeutic interventions: 1:1 therapeutic assessment, maintained safe therapeutic milieu, provided active listening with positive reinforcement, provided medication administration/education/monitoring as needed; Q15 safety checks. Restraints/seclusion/emergency medication: N/A Justification of Continued Inpatient Treatment: Continued therapeutic support and medication management needed to provide stabilization, prevent decompensation, improve coping mechanisms decreasing risk to patient and re-admittance. Pt will return to retirement once safe to discharge.
[2019-09-30 08:00] VITALS: BP 105/73
[2019-09-30] MEDS: buPROPion SR 150mg tablet PO SCH (08:03)
[2019-09-30] MEDS: pantoprazole 40mg Tablet.DR PO SCH (08:03)
[2019-09-30] MEDS: loratadine 10mg tablet PO SCH (08:03)
[2019-09-30] MEDS: montelukast 10mg tablet PO SCH (08:03)
--- NOTE | 2019-09-30 08:12 | NUR ---
SS received fax from [employer], per fax- pt has lost placement @ the [facility] supportive living; [facility] is requesting a meeting w/providers to discuss pt's options for housing following d/c. Plan: SS to coordinate dcp client centered meeting w/client, [facility], [facility] & [facility] providers to discuss placement/housing options; possible [facility]. Mary Castillo LCSW Addendum: 09/30/19 at 0815 by Mary STEINBERG Amended: Links added.
[2019-09-30] MEDS: propranolol 10mg tablet PO SCH ×3 (08:22→21:23)
--- NOTE | 2019-09-30 11:19 | NUR ---
Initial: PO intake fluctuates, averaging 100% with fluctuation to 50-75%, closely meeting nutrient needs. Patient has sufficient energy stores to sustain a mild caloric deficient. No nutrition intervention at this time. Will monitor further trends in PO intake to determine future intervention. Per MD note, pt hx of vomiting after eating due to GERD, however, no documentation of emesis in this visit. Last BM 09/29. No nutrition diagnosis at this time. Will continue to monitor. Recommendation: 1. Continue regular diet 2. weight per rx 3. Bowel care as needed Addendum: 09/30/19 at [address] Amended: Links added. Addendum: 09/30/19 at [address] I have reviewed and agree with note by Sales Assistant. Malgorzata Henson RD
--- NOTE | 2019-09-30 14:53 | NUR ---
Spoke to Esme [facility], to inquire about [facility] conservatorship. She reported she will look into it as he is connected with [facility]. LINDA Ibrahim
[2019-09-30] MEDS: LORazepam 1 MG tablet PO PRN (15:32)
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
[2019-09-30] MEDS: mag hydrox/Alum hydrox/simeth 30ml oral suspension PO PRN (16:30)
--- NOTE | 2019-09-30 17:34 | NUR ---
Nursing Progress Note: Legal hold:vol Report received from Karey Spaulding, with use of SBAR. Why are they here: [id number] written by [place] who writes that Pt states that he would be "better off " and that he was going to get the "grim reaper to kill" either his house staff or her family member. When Pt was asked about this he stated "she tried to get me to do something I didn't want to do." I can control the grim reaper. I don't want to hurt anyone because I would never be able to forgive myself." Assessment What has happened this shift: Patient is observed sleeping at change of shift. He wakes for breakfast and joins others in the group room. He eats on his pancake and nothing else. He takes his medications without issue. After breakfast patient showers. He attends morning group and then states that he is upset because he discussed anger. He continues to want to discuss his anger and refuses to focus his thoughts in a different direction or use learned coping skills. RN discouraged negative focus and negative behaviors by not engaging in negative conversations with patient and encouraged positive behaviors and polite talk. Patient continues attention seeking behaviors. Patient gets into argument with 72yr old female peer regarding sitting in a chair. Patient makes verbal threats regarding crushing peers head in. Later patient states that he apologized for his statements. RN informed patient that staff is concerned about the things he said and his behaviors, encouraged patient to think about what he is saying and how he is behaving. He is encourage to attend groups and work towards his own wellness. S/I, H/I: none reported A/VH: none reported Sleep: 8hrs NOC ADL's: Independent. Group attendance: yes Were meds taken: Yes Any Med side effects: No Mental Status Exam Appearance: disheveled Eye contact: direct Behavior: attention seeking Speech: varied Mood: labile Affect: congruent to mood Thought process: tangential Thought Content: own needs, somatic complaints, hurting others or himself Cognition: poor Insight: poor Judgment: poor Interventions PRN's used: Maalox for stomach acid Therapeutic interventions: 1:1 therapeutic assessment, maintained safe therapeutic milieu, provided active listening with positive reinforcement, provided medication administration/education/monitoring as needed; Q15 safety checks. Restraints/seclusion/emergency medication: N/A Justification of Continued Inpatient Treatment: Continued therapeutic support and medication management needed to provide stabilization, prevent decompensation, improve coping mechanisms decreasing risk to patient and re-admittance.
[2019-09-30 20:00] VITALS: BP 118/74
[2019-09-30] MEDS: aripiprazole 5mg tablet PO SCH (21:23)
[2019-09-30] MEDS: hydrOXYzine 25 MG tablet PO PRN (21:23)
[2019-10-01] MEDS: magnesium hydroxide 30ml (MOM) UD suspension PO PRN (00:51)
--- NOTE | 2019-10-01 04:32 | NUR ---
Nursing Progress Note: Legal hold: Vol for DTS/DTO Report received from BRYAN Zheng with use of SBAR. Why are they here: [id number] written by [place] who writes that Pt states that he would be "better off " and that he was going to get the "grim reaper to kill" either his house staff or her family member. When Pt was asked about this he stated "she tried to get me to do something I didn't want to do." I can control the grim reaper. I don't want to hurt anyone because I would never be able to forgive myself." Assessment What has happened this shift: Pt approached this RN to discuss angry outburst early in the day. "I am a demon, with a hatred for humanity and sometimes I just want to hurt them all. I know it's bad, but I can't help my feelings sometimes." RN encouraged pt to seek positive verbal responses and utilize coping skills, pt stated he just can't help his anger. RN suggested walking away from situation and seeking a nurse to assist in calming him down. Pt remained cooperative majority of the shift, making jokes and laughing with peers and RNs. Pt will perseverate on multiple topics including his anger, minecraft, and his delusions of being a demon. Pt had cake during snack as a belated birthday celebration; after he took a shower. This RN requested pt exit the shower after 45 minutes because other pt's were requesting to use one. Denis became very agitated displaying muscle constriction, and aggressively tapping himself on the temples, saying "I was meditating, I can only do it there I hate that! I hate that!" Pt spoke through clenched teeth. This RN validated pt's feelings and slowly de-escalated pt. Pt was calm when taking HS medications, stating he understood other people needed to use the shower. Pt attempted to sleep; awoke few hours later and spent 30 minutes in bathroom. This RN check in and pt stated he felt constipated and hasn't gone in 4 days. Pt was making straining noises. RN directed pt back to bed then administered MOM. Pt went to sleep shortly thereafter. S/I, H/I: Denies Both A/VH: Denies AH, +VH Sleep: See Sleep Assessment ADL's: Independent Group attendance: N/A Were meds taken: Yes Any Med side effects: None reported nor noted Mental Status Exam Appearance: Freshly showered, wearing unit scrubs and nonskid socks Eye contact: Direct Behavior: Attended HS Snack, Watching TV, Pacing [place] Speech: Slightly pressured, Mumbled Mood: Easily Agitated, Anxiety 5/10 Affect: Blunted Thought process: Perseverates on anger issues Thought Content: Birthday cake, delusions regarding being a demon Cognition: Delayed Insight: Poor Judgment: Poor Interventions PRN's used: Atarax Therapeutic interventions: 1:1 therapeutic assessment, maintained safe therapeutic milieu, provided active listening with positive reinforcement, provided medication administration/education/monitoring as needed; Q15 safety checks. Restraints/seclusion/emergency medication: N/A Justification of Continued Inpatient Treatment: Continued therapeutic support and medication management needed to provide stabilization, prevent decompensation, improve coping mechanisms decreasing risk to patient and re-admittance.
[2019-10-01 07:30] VITALS: BP 105/60
[2019-10-01] MEDS: propranolol 10mg tablet PO SCH ×3 (08:25→21:22)
[2019-10-01] MEDS: buPROPion SR 150mg tablet PO SCH (08:26)
[2019-10-01] MEDS: loratadine 10mg tablet PO SCH (08:26)
[2019-10-01] MEDS: pantoprazole 40mg Tablet.DR PO SCH (08:26)
[2019-10-01] MEDS: montelukast 10mg tablet PO SCH (08:27)
[2019-10-01] MEDS: divalproex sod 250mg ER (24-hour) tablet PO SCH (08:31)
[2019-10-01] MEDS: acetaminophen 325mg tablet PO PRN (13:33)
[2019-10-01] MEDS: LORazepam 1 MG tablet PO PRN (16:57)
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
[2019-10-01 19:00] VITALS: BP 101/55
[2019-10-01] MEDS: hydrOXYzine 25 MG tablet PO PRN (21:22)
[2019-10-01] MEDS: aripiprazole 5mg tablet PO SCH (21:22)
--- NOTE | 2019-10-02 00:52 | NUR ---
Nursing Progress Note: Legal hold: Vol for DTS/DTO Report received from BRYAN Zheng with use of SBAR. Why are they here: [id number] written by who writes that Pt states that he would be "better off " and that he was going to get the "grim reaper to kill" either his house staff or her family member. When Pt was asked about this he stated "she tried to get me to do something I didn't want to do." I can control the grim reaper. I don't want to hurt anyone because I would never be able to forgive myself." Assessment What has happened this shift: Pt. Up in halls at start of shift. Pt. denies SI/HI, A/V H. Pt. reports he feels much better denies depression or SI. He believes The Depakote is helping. Pt often follows staff around tries to get attention often acts childish. He is Pleasant and cooperative with care. S/I, H/I: Denies A/VH: Denies Sleep: See Sleep Assessment ADL's: Independent Group attendance: N/A Were meds taken: Yes Any Med side effects: None reported nor noted Mental Status Exam Appearance: Neat and clean, wearing unit scrubs and nonskid socks Eye contact: Direct Behavior: intrusive but redirect able. Speech: Slightly pressured, Mumbled Mood: anxious but more euthymic today. Affect: Blunted Thought process: Thought Content: Trying to be more peaceful Cognition: Delayed Insight: Poor Judgment: Poor Interventions PRN's used: Atarax Therapeutic interventions: 1:1 therapeutic assessment, maintained safe therapeutic milieu, provided active listening with positive reinforcement, provided medication administration/education/monitoring as needed; Q15 safety checks. Restraints/seclusion/emergency medication: N/A Justification of Continued Inpatient Treatment: Continued therapeutic support and medication management needed to provide stabilization, prevent decompensation, improve coping mechanisms decreasing risk to patient and re-admittance.
[2019-10-02] MEDS: divalproex sod 250mg ER (24-hour) tablet PO SCH (07:42)
[2019-10-02] MEDS: loratadine 10mg tablet PO SCH (07:42)
[2019-10-02] MEDS: pantoprazole 40mg Tablet.DR PO SCH (07:42)
[2019-10-02] MEDS: buPROPion SR 150mg tablet PO SCH (07:43)
[2019-10-02] MEDS: montelukast 10mg tablet PO SCH (07:43)
[2019-10-02] MEDS: propranolol 10mg tablet PO SCH ×3 (07:43→20:13)
[2019-10-02 08:00] VITALS: BP 105/60
[2019-10-02] MEDS: ibuprofen tablet 400 MG TABLET PO PRN ×2 (09:40→20:13)
[2019-10-02 09:50] LABS: CHOL/HDL RATIO 3.3 (0.00-4.99); CHOLESTEROL 142 MG/DL (0-200); HDL CHOLESTEROL 43 MG/DL (35-60); LDL CHOLESTEROL 85 MG/DL (50-100); TRIGLYCERIDES 91 MG/DL (20-135)
--- NOTE | 2019-10-02 16:34 | NUR ---
Nursing Progress Note: [place] Legal hold: Vol for DTS/DTO Report received from Karey Spaulding RN with use of SBAR. Why are they here: [id number] written by [place] who writes that Pt states that he would be "better off " and that he was going to get the "grim reaper to kill" either his house staff or her family member. When Pt was asked about this he stated "she tried to get me to do something I didn't want to do." I can control the grim reaper. I don't want to hurt anyone because I would never be able to forgive myself." Assessment What has happened this shift: Pt. resting in bed peacefully at change of shift. No distress observed. He is pleasant and cooperative with care and takes his medications as ordered without incident. He denies SI/HI/A/VH, however, he states, "my grandparents ghosts came to visit me last night in my sleep. It wasn't bad. They wanted to let me know that they were looking after me". He took a shower today and 2 sweaters were found for him in the ED closet because he reported being cold. He is eating well today. He was seen in the community room throughout the day and intermittently socializing and ambulating in the halls. He reports being depressed intermittently because, he states, "I recently had a birthday and I just wanted to spend it with my girlfriend". Encouraged patient to focus on the positive things he has going on and he was redirectable. S/I, H/I: Denies A/VH: Denies Sleep: up the majority of this shift. ADL's: Independent Group attendance: partial in the morning Were meds taken: Yes Any Med side effects: Pt looks moderately fatigued Mental Status Exam Appearance: Freshly showered, wearing unit scrubs and nonskid socks Eye contact: Direct Behavior: intrusive but redirect able. Speech: Slightly pressured, Mumbled Mood: euthymic today with some intermittent anxiety. Affect: Blunted with some brightening Thought process: linear Thought Content: Trying to be more peaceful, " I am 29 years old, but my band says I am 28 years old", " I just had a birthday" Cognition: Delayed Insight: Poor Judgment: Poor Interventions PRN's used: none Therapeutic interventions: 1:1 therapeutic assessment, maintained safe therapeutic milieu, provided active listening with positive reinforcement, provided medication administration/education/monitoring as needed; Q15 safety checks. Restraints/seclusion/emergency medication: N/A Justification of Continued Inpatient Treatment: Continued therapeutic support and medication management needed to provide stabilization, prevent decompensation, improve coping mechanisms decreasing risk to patient and re-admittance. Addendum: 10/02/19 at 1756 by Gerda Barraza RN Pt was having behaviors around 1630. He was speaking loudly and gesticulating and blinking his eyes rapidly. He is verbalizing that he is "the God of ". He state, "I hate myself". Provided active listening, redirection and peppermint tea. Also provided therapeutic touch by holding Pt's hand. Pt stated that he was a little bit more calm, but the lorazepam "usually helps" when offered by this loan underwriter. PRN Ativan given for agitation with good result.
[2019-10-02] MEDS: LORazepam 1 MG tablet PO PRN (17:46)
[2019-10-02 19:57] VITALS: BP 118/72
[2019-10-02] MEDS: hydrOXYzine 25 MG tablet PO PRN (20:13)
[2019-10-02] MEDS: aripiprazole 5mg tablet PO SCH (20:13)
--- NOTE | 2019-10-03 00:16 | NUR ---
Nursing Progress Note: Lico Legal hold: Vol for DTS/DTO Report received from BRYAN Zheng with use of SBAR. Why are they here: [id number] written by [place] who writes that Pt states that he would be "better off " and that he was going to get the "grim reaper to kill" either his house staff or her family member. When Pt was asked about this he stated "she tried to get me to do something I didn't want to do." I can control the grim reaper. I don't want to hurt anyone because I would never be able to forgive myself." Assessment What has happened this shift: He is pleasant and cooperative with care most of the time. He often becomes very angry if any request of his is denied. His conversation is tangential. He has delusions that he is capable of [place] projection and harming people with his mind. He takes his medications as ordered without incident. S/I, H/I: Denies A/VH: Denies Sleep: sleeping at this time ADL's: Independent Group attendance: partial in the morning Were meds taken: Yes Any Med side effects: Pt looks moderately fatigued Mental Status Exam Appearance: Freshly showered, wearing unit scrubs and nonskid socks Eye contact: Direct Behavior: intrusive but redirectable. Speech: Slightly pressured, Mumbled Mood: Good Affect: Blunted with some brightening Thought process: Tangential Thought Content: Varies Cognition: Delayed Insight: Poor Judgment: Poor Interventions PRN's used: none Therapeutic interventions: 1:1 therapeutic assessment, maintained safe therapeutic milieu, provided active listening with positive reinforcement, provided medication administration/education/monitoring as needed; Q15 safety checks. Restraints/seclusion/emergency medication: N/A Justification of Continued Inpatient Treatment: Continued therapeutic support and medication management needed to provide stabilization, prevent decompensation, improve coping mechanisms decreasing risk to patient and re-admittance.
[2019-10-03] MEDS: divalproex sod 250mg ER (24-hour) tablet PO SCH (08:30)
[2019-10-03] MEDS: buPROPion SR 150mg tablet PO SCH (08:30)
[2019-10-03] MEDS: loratadine 10mg tablet PO SCH (08:30)
[2019-10-03] MEDS: propranolol 10mg tablet PO SCH ×3 (08:30→20:23)
[2019-10-03] MEDS: pantoprazole 40mg Tablet.DR PO SCH (08:30)
[2019-10-03] MEDS: montelukast 10mg tablet PO SCH (08:31)
--- NOTE | 2019-10-03 08:38 | NUR ---
Brief check-in with pt this am as he waits for breakfast, pt was lethargic and groggy and reports "I'm sleepy". Plan: SS to continue 1:1 interventions & check-ins with pt to provide opportunities for pt to verbalize & process internal thoughts and emotional experiences. Mary Castillo LCSW Addendum: 10/03/19 at 0843 by Mary Castillo Amended: Links added.
[2019-10-03] MEDS: LORazepam 1 MG tablet PO PRN (11:06)
[2019-10-03] MEDS: hydrOXYzine 25 MG tablet PO PRN (16:14)
[2019-10-03] MEDS: ibuprofen tablet 400 MG TABLET PO PRN (16:14)
--- NOTE | 2019-10-03 18:27 | NUR ---
Nursing Progress Note: Lico Legal hold: Vol for DTS/DTO Report received from Karey Spaulding RN with use of SBAR. Why are they here: [id number] written by [place] who writes that Pt states that he would be "better off " and that he was going to get the "grim reaper to kill" either his house staff or her family member. When Pt was asked about this he stated "she tried to get me to do something I didn't want to do." I can control the grim reaper. I don't want to hurt anyone because I would never be able to forgive myself." Assessment What has happened this shift: Pt. resting in bed peacefully at change of shift. No distress observed. He is pleasant and cooperative with care and takes his medications as ordered without incident. He denies SI/HI/A/VH, however, he states, "I talk to the grim reaper. I am a weapon created by GOD to make the human race suffer because not everyone is a Denominational ". He took a shower today. He is eating well today. He was seen in the community room throughout the day and intermittently socializing and ambulating in the halls. Pt had a broken molar on the left side that partially broke off during dinner. He c/o pain in his ribs and PRN Motrin was given. Also gave lorazepam and Atarax for anxiety. S/I, H/I: Denies A/VH: Denies Sleep: naps intermittently but up most of shift. ADL's: Independent Group attendance: partial, [facility] Were meds taken: Yes Any Med side effects: none reported or observed Mental Status Exam Appearance: Freshly showered, wearing street clothes Eye contact: Direct Behavior: intrusive but redirect able. Speech: Slightly pressured, Mumbled Mood: euthymic today with some intermittent anxiety. Affect: Blunted with some brightening, some lability toward end of shift. Thought process: linear Thought Content: some fixed delusions "I talk to the grim reaper"., "I want to go home". Cognition: Delayed Insight: Poor Judgment: Poor Interventions PRN's used: ativan, atarax, motrin Therapeutic interventions: 1:1 therapeutic assessment, maintained safe therapeutic milieu, provided active listening with positive reinforcement, provided medication administration/education/monitoring as needed; Q15 safety checks. Restraints/seclusion/emergency medication: N/A Justification of Continued Inpatient Treatment: Continued therapeutic support and medication management needed to provide stabilization, prevent decompensation, improve coping mechanisms decreasing risk to patient and re-admittance.
[2019-10-03] MEDS: benzocaine (Anbesol) 12ml bottle MM PRN (19:48)
[2019-10-03] MEDS: aripiprazole 5mg tablet PO SCH (20:22)
[2019-10-03] MEDS: prazosin 1mg capsule PO SCH (20:23)
[2019-10-03] MEDS: divalproex sodium 500mg tablet.DR PO SCH (20:24)
[2019-10-03 20:31] VITALS: BP 117/75
--- NOTE | 2019-10-03 21:41 | NUR ---
Nursing Progress Note: Lico Legal hold: Vol for DTS/DTO Report received from BRYAN Zheng with use of SBAR. Why are they here: [id number] written by [place] who writes that Pt states that he would be "better off " and that he was going to get the "grim reaper to kill" either his house staff or her family member. When Pt was asked about this he stated "she tried to get me to do something I didn't want to do." I can control the grim reaper. I don't want to hurt anyone because I would never be able to forgive myself." Assessment What has happened this shift: Pt. up social with peers. No distress observed. He is pleasant and cooperative with care and takes his medications as ordered without incident. He denies SI/HI/A/VH, however, he states, "I talk to the grim reaper. I am a weapon created by GOD to make the human race suffer because not everyone is a Jewish ". He took a shower today. He is eating well today. He was seen in the community room throughout the day and intermittently socializing and ambulating in the halls. Pt had a broken molar on the left side that partially broke off during dinner. He c/o pain in his tooth and Ambisol given and effective. S/I, H/I: Denies A/VH: Denies Sleep: naps intermittently but up most of shift. ADL's: Independent Group attendance: partial, went out to the patio Were meds taken: Yes Any Med side effects: none reported or observed Mental Status Exam Appearance: Freshly showered, wearing street clothes Eye contact: Direct Behavior: intrusive but redirect able. Speech: Slightly pressured, Mumbled Mood: euthymic today with some intermittent anxiety. Affect: Blunted with some brightening, some lability toward end of shift. Thought process: linear Thought Content: some fixed delusions "I talk to the grim reaper"., "I want to go home". Cognition: Delayed Insight: Poor Judgment: Poor Interventions PRN's used: Ambisol Therapeutic interventions: 1:1 therapeutic assessment, maintained safe therapeutic milieu, provided active listening with positive reinforcement, provided medication administration/education/monitoring as needed; Q15 safety checks. Restraints/seclusion/emergency medication: N/A Justification of Continued Inpatient Treatment: Continued therapeutic support and medication management needed to provide stabilization, prevent decompensation, improve coping mechanisms decreasing risk to patient and re-admittance.
[2019-10-04 08:00] VITALS: BP 115/74
[2019-10-04] MEDS: buPROPion SR 150mg tablet PO SCH (08:26)
[2019-10-04] MEDS: loratadine 10mg tablet PO SCH (08:26)
[2019-10-04] MEDS: pantoprazole 40mg Tablet.DR PO SCH (08:26)
[2019-10-04] MEDS: montelukast 10mg tablet PO SCH (08:26)
[2019-10-04] MEDS: divalproex sodium 250mg tablet PO SCH (08:27)
[2019-10-04] MEDS: benzocaine (Anbesol) 12ml bottle MM PRN ×2 (08:49→10:45)
[2019-10-04] MEDS: acetaminophen 325mg tablet PO PRN (08:52)
[2019-10-04] MEDS: propranolol 10mg tablet PO SCH ×3 (09:12→20:56)
[2019-10-04] MEDS: ibuprofen tablet 400 MG TABLET PO PRN (10:03)
[2019-10-04] MEDS: LORazepam 1 MG tablet PO PRN (10:41)
--- NOTE | 2019-10-04 12:15 | NUR ---
reassessment: Pt PO continues to fluctuate but overall likely 65-75% avg PO this admit meeting needs. given current wt. Wt decreased from 155kg to 63kg; initial likely error. Pt noted to have abdominal pain w/ moderate LBM 10/01; received MoM PRN 10/01. Hx GERD receiving protonix. No nutrition concerns at this time. Will continue to monitor. Recommendation: 1. Continue regular diet 2. weight per rx 3. Bowel care as needed Addendum: 10/04/19 at [address] Amended: Links added.
[2019-10-04] MEDS: mag hydrox/Alum hydrox/simeth 30ml oral suspension PO PRN (13:03)
--- NOTE | 2019-10-04 13:42 | NUR ---
1:1- processing of loss of placement Pt was in a good mood prior to SS informing him about the loss of placement, pt asked SS to talk to staff @ the senior living and let them know that pt wants to return there. When SS informed him that he cannot return to the home that he was living, pt struggled to accept this; regressed to verbalization of thoughts associated w/self harm, harming others, self criticizing comments "I'm bad & worthless" and criticizing staff at the home, "They're just like everyone else, they don't care about me, they just want to throw me away like I'm trash". Pt also began to dig his nails into his face and eyes. SS validated pt's disappointment, anger, sense of abandonment and fear associated w/having to make a change due to loss of placement. Pt continued to perseverate on negative emotions & thoughts, SS set boundaries w/pt and attempted to distract pt from his negative thoughts & emotions via use of transactional object and imagery strategies, pt refused to utilize these strategies, SS instructed pt to walk w/SS, this pt was able to comply with. Pt asked if he can do some brain spotting work today, SS facilitated pt's access to a therapist for brain spotting work. Plan: SS to coordinate dcp & placement services w/conservator. Mary Castillo LCSW Addendum: 10/04/19 at 1435 by Mary Castillo Amended: Links added.
--- NOTE | 2019-10-04 16:06 | NUR ---
SS completed & faxed Request for LPS Conservatorship to [facility]'s office to facilitate pt's access to evaluation for LPS Conservatorship. LINSEY MelendezW Addendum: 10/04/19 at 1607 by Mary STEINBERG Amended: Links added.
--- NOTE | 2019-10-04 16:51 | NUR ---
SW/Art Therapy 1:1 - The below named therapist, met with patient per request and collaboration from the treatment team following his meeting with SS, learning that he would not be accepted back into his previous placement. At the on-set of session, patient was highly distressed, expressing thoughts/feelings of self abuse and anger towards self and others at his previous placement, feeling rejected and worthless "like a piece of trash." Intervention: Provided art therapy to identify and express emotional distress together with attuned empathic listening using bi-lateral sound. Patient reported a reduction in his emotional distress having an initial SUDS (Subjective level of distress scale) of 10. Following the session and identifying a safe resource space, patient identified a reduction from 10 to 0. Patient was encouraged to continue to practice his resource spot as a way to regulate future distress and self sooth v.s. self harm. Talisha Moore MA Licensed Marriage, Family Therapist #[id number] [facility] Art Therapist Addendum: 10/04/19 at 1700 by Talisha STEINBERG Amended: Links added.
--- NOTE | 2019-10-04 17:00 | NUR ---
Nursing Progress Note: Lico Legal hold: Vol for DTS/DTO Report received from BRYAN Sánchez with use of SBAR. Why are they here: [id number] written by [place] who writes that Pt states that he would be "better off " and that he was going to get the "grim reaper to kill" either his house staff or her family member. When Pt was asked about this he stated "she tried to get me to do something I didn't want to do." I can control the grim reaper. I don't want to hurt anyone because I would never be able to forgive myself." Assessment What has happened this shift: Pt. asleep at start of shift. Pt. took all meds and ate meals in community room. Pt. denies SI/HI, A/V H. Pt. became agitated today when he learned that he would not be able to return to his prison. Pt. shouting, I am half man, half god! I will destroy humanity! Pt. given Ativan 1mg po with good effect. Pt. c/o of tooth pain rated 8/10 and given benzocaine application x2 with good effect. Pt. reported indigestion and given Maalox with good effect. Pt. c/o of no bowel movement in last 3 days and given prune juice. Pt. seen socializing with peers appropriately. Pt. showered. Pt. assessed by from replaced by [facility] for consideration of conservatorship S/I, H/I: Denies A/VH: Denies Sleep: naps intermittently but up most of shift. ADL's: Independent Group attendance: went to AM group but not to afternoon group. Were meds taken: Yes Any Med side effects: none reported or observed Mental Status Exam Appearance: Freshly showered, wearing street clothes Eye contact: Direct Behavior: intrusive and agitated at times but redirectable. Speech: Slightly pressured, Mumbled Mood: labile extremely agitated and shouting at times, pleasant at other times. Pt. is redirectable. Affect: Blunted with some brightening, some lability toward end of shift. Thought process: linear Thought Content: some fixed delusions "I have half man-half god". Cognition: Delayed Insight: Poor Judgment: Poor Interventions PRN's used: Benzocaine, Ativan Therapeutic interventions: 1:1 therapeutic assessment, maintained safe therapeutic milieu, provided active listening with positive reinforcement, provided medication administration/education/monitoring as needed; Q15 safety checks. Restraints/seclusion/emergency medication: N/A Justification of Continued Inpatient Treatment: Continued therapeutic support and medication management needed to provide stabilization, prevent decompensation, and improve coping mechanisms decreasing risk to patient and re-admittance.
[2019-10-04 19:38] VITALS: BP 126/75
[2019-10-04] MEDS: aripiprazole 5mg tablet PO SCH (20:56)
[2019-10-04] MEDS: prazosin 1mg capsule PO SCH (20:56)
[2019-10-04] MEDS: divalproex sodium 500mg tablet.DR PO SCH (20:56)
--- NOTE | 2019-10-05 00:15 | NUR ---
Nursing Progress Note: Legal hold: Vol for DTS/DTO Report received from BRYAN Zheng with use of SBAR. Why are they here: [id number] written by [place] who writes that Pt states that he would be "better off " and that he was going to get the "grim reaper to kill" either his house staff or her family member. When Pt was asked about this he stated "she tried to get me to do something I didn't want to do." I can control the grim reaper. I don't want to hurt anyone because I would never be able to forgive myself." Assessment What has happened this shift: Pt was walking in the [place] at change of shift. Spent time telling jokes to charge nurse and was laughing and smiling. He states he had a bad day because he doesn't like change. "I dont like change and they want to put me in a new place to live, I hope there are girls there because I dont like men, I dont trust them." Pt then talks about how he did a brain spotting exercise and there were "little girls between 9-12 that weren't wearing any clothes in my imagination and I didnt have clothes on either, what do you think that means? I didnt know what that meant when I did the exercise." Encouraged pt to talk about what he thinks of during the brain spotting exercises with the therapists. pt spent the evening watching movies with peers, before going to bed. S/I, H/I: Denies A/VH: Denies Sleep: naps intermittently but up most of shift. ADL's: Independent Group attendance: watched movies and had snack with peers Were meds taken: Yes Any Med side effects: none reported or observed Mental Status Exam Appearance: adequately groomed, wearing street clothes Eye contact: Direct Behavior: intrusive and agitated at times but redirectable. Speech: Slightly pressured, Mumbled Mood: labile agitated then laughing Pt. is redirectable. Affect: Blunted with some brightening Thought process: linear Thought Content: pt is anxious, fearful of changing homes, but states he doesnt like his current housing situation but is afraid of what the new place will be like. Cognition: Delayed Insight: Poor Judgment: Poor Interventions PRN's used: none Therapeutic interventions: 1:1 therapeutic assessment, maintained safe therapeutic milieu, provided active listening with positive reinforcement, provided medication administration/education/monitoring as needed; Q15 safety checks. Restraints/seclusion/emergency medication: N/A Justification of Continued Inpatient Treatment: Continued therapeutic support and medication management needed to provide stabilization, prevent decompensation, and improve coping mechanisms decreasing risk to patient and re-admittance.
[2019-10-05] MEDS: cloNIDine 0.1 mg tablet PO SCH ×3 (02:00→14:00)
[2019-10-05 07:00] VITALS: BP 106/70
[2019-10-05] MEDS: pantoprazole 40mg Tablet.DR PO SCH (08:12)
[2019-10-05] MEDS: propranolol 10mg tablet PO SCH ×2 (08:12→19:25)
[2019-10-05] MEDS: divalproex sodium 250mg tablet PO SCH (08:13)
[2019-10-05] MEDS: montelukast 10mg tablet PO SCH (08:14)
[2019-10-05] MEDS: buPROPion SR 150mg tablet PO SCH (08:14)
[2019-10-05] MEDS: loratadine 10mg tablet PO SCH (08:14)
[2019-10-05] MEDS: LORazepam 1 MG tablet PO PRN (09:02)
--- NOTE | 2019-10-05 10:53 | NUR ---
SS had t/c w/pt's probate conservator, Christin Martino, per t/c conservator expressed concerns that pt's on voluntary status as it makes it difficult for [facility] to move forward w/LPS Conservatorship. SS validated conservator's concerns and informed her that pt's nowhere close to d/c and that the care team is not advocating for d/c at this time and that pt's hold was expiring so care team members spoke w/pt prior to the expiration time & pt agreed to stay. Discuss a need for pt to be on a hold to facilitate the LPS Conservatorship and plan of d/c-ing pt to have him transported to [facility] and have [facility] clinician place a 5150 Hold on him and send him back to [facility], conservator agreeable to this plan. SS informed care team including Dr. Palacios, care team in agreement with plan of d/c-ing pt and requesting [facility] to provide a 5150. SS had t/c w/Dr. Grady Olivares, [facility] requesting rt p/c to discuss & coordinate pt's access to new 5150 to facilitate LPS Conservatorship. Mary Castillo LCSW Addendum: 10/05/19 at 1104 by Mary Castillo Amended: Links added.
[2019-10-05] MEDS ORDERED: LORazepam 1 MG tablet PO PRN (16:00)
--- NOTE | 2019-10-05 17:00 | NUR ---
Nursing Progress Note: Legal hold: Vol for DTS/DTO Report received from BRYAN Sánchez with use of SBAR. Why are they here: [id number] written by who writes that Pt states that he would be "better off " and that he was going to get the "grim reaper to kill" either his house staff or her family member. When Pt was asked about this he stated "she tried to get me to do something I didn't want to do." I can control the grim reaper. I don't want to hurt anyone because I would never be able to forgive myself." Assessment What has happened this shift: Pt. asleep at start of shift. Pt. reports that his medications are helping him with his nightmares. Pt. took medications and ate all meals in community room. Pt. seen conversing with another patient in the hallway. Pt. reported to RN that his conversation regarding an incident where he needed to rescue his sister from a pit bull and had to kill the pit bull was bringing of distressing memories. Pt. reports that he is not feeling well, that he feels like his spirit is leaving his body. Pt. given Ativan 1mg po. Pt. then took a nap. Pt. awake at 1300 and ate lunch. Pt. continues pacing in [facility] and says, I feel like my body is rotting, it is dying. RN talked with pt. in his room, pt. states, I hate myself, God has cursed me and is torturing me My family abandoned me when I was a child because they couldnt handle my behaviors and I was put in a assisted I want to . Later, as pt. was pacing the hallway, pt states, I am hungry for meat pt. given some turkey and pt. requested more. When pt. told to wait until dinner time pt. replied, I want meat, human meat! Pt. redirectable. Pt. showered. Pt. has Depakote level draw tomorrow 10/06. Pt. started S/I, H/I: Denies A/VH: Denies Sleep: naps intermittently ADL's: Independent Group attendance: Pt. attended 10 minutes of art group but left because he did not feel good Were meds taken: Yes Any Med side effects: none reported or observed Mental Status Exam Appearance: adequately groomed, wearing street clothes Eye contact: Direct Behavior: intrusive and agitated at times but redirectable. Speech: Slightly pressured, Mumbled Mood: labile and easily agitated when requests not met. Affect: Blunted Thought process: linear Thought Content: Self-deprecating thoughts, also focused on food. Cognition: Delayed Insight: Poor Judgment: Poor Interventions PRN's used: Ativan 1mg po Therapeutic interventions: 1:1 therapeutic assessment, maintained safe therapeutic milieu, provided active listening with positive reinforcement, provided medication administration/education/monitoring as needed; Q15 safety checks. Restraints/seclusion/emergency medication: N/A Justification of Continued Inpatient Treatment: Continued therapeutic support and medication management needed to provide stabilization, prevent decompensation, and improve coping mechanisms decreasing risk to patient and re-admittance.
[2019-10-05] MEDS ORDERED: traMADol 50MG tablet PO ONE (19:00)
[2019-10-05 19:32] VITALS: BP 110/63
[2019-10-05] MEDS: aripiprazole 5mg tablet PO SCH (20:16)
[2019-10-05] MEDS: prazosin 1mg capsule PO SCH (20:16)
[2019-10-05] MEDS: divalproex sodium 500mg tablet.DR PO SCH (20:16)
--- NOTE | 2019-10-05 23:05 | NUR ---
Nursing Progress Note: Legal hold: Vol Report received from BRYAN Duckworth with use of SBAR. Why are they here: [id number] written by who writes that Pt states that he would be "better off " and that he was going to get the "grim reaper to kill" either his house staff or her family member. When Pt was asked about this he stated "she tried to get me to do something I didn't want to do." I can control the grim reaper. I don't want to hurt anyone because I would never be able to forgive myself." Assessment What has happened this shift: Pt was walking around in the hallway at change of shift. Spent evening watching movies with other patients before going to bed. Pt c/o muscle pain on his left side, pt was given prn w/good effect "the pain is completely gone!" pt was thankful but states he is worried about becoming addicted to tramadol. Explained to pt this is a one time dose for his pain tonight. Pt states he is being "friendly" to the new patient on the floor because he wants "to make her feel welcome." Pt. has Depakote level draw tomorrow 10/06. Pts reports his appetite is "Ok, I'm not that hungry lately." S/I, H/I: Denies A/VH: Denies Sleep: sleeping good at [place] ADL's: Independent Group attendance: Pt watched tv with other patients in the group room Were meds taken: Yes Any Med side effects: none reported or observed Mental Status Exam Appearance: adequately groomed, wearing street clothes Eye contact: Direct Behavior: intrusive but redirectable. Speech: Slightly pressured, Mumbled Mood: labile and easily agitated when requests not met, pt is pleasant this evening Affect: Blunted Thought process: linear Thought Content: pt is talking about muscle pain on his left side and was given 1 time dose of ultram, pt talks about not wanting to become addicted to Tramadol because he has been "addicted to caffeine 3 times in the past" Cognition: Delayed Insight: Poor Judgment: Poor Interventions PRN's used: Tramadol Therapeutic interventions: 1:1 therapeutic assessment, maintained safe therapeutic milieu, provided active listening with positive reinforcement, provided medication administration/education/monitoring as needed; Q15 safety checks. Restraints/seclusion/emergency medication: N/A Justification of Continued Inpatient Treatment: Continued therapeutic support and medication management needed to provide stabilization, prevent decompensation, and improve coping mechanisms decreasing risk to patient and re-admittance.
[2019-10-06] MEDS: divalproex sodium 250mg tablet PO SCH (07:46)
[2019-10-06] MEDS: buPROPion SR 150mg tablet PO SCH (07:47)
[2019-10-06] MEDS: montelukast 10mg tablet PO SCH (07:47)
[2019-10-06] MEDS: risperiDONE 2mg tablet PO SCH (07:47)
[2019-10-06] MEDS: pantoprazole 40mg Tablet.DR PO SCH (07:47)
[2019-10-06] MEDS: loratadine 10mg tablet PO SCH (07:48)
[2019-10-06 08:00] VITALS: BP 96/66
[2019-10-06] MEDS: propranolol 10mg tablet PO SCH ×2 (08:57→20:04)
[2019-10-06] MEDS: ibuprofen tablet 400 MG TABLET PO PRN (09:03)
--- NOTE | 2019-10-06 13:48 | NUR ---
Continuity of Care: MDT Consult SS consulted /[facility] managers & attending psychiatrists to determine most appropriate route for pt to access an eval for 5150 as pt continues to be gravely disabled due to sxs/bxs associated with severe mental illness and pt unable to formulate a reasonable plan for meeting his basic needs of long-term, clothing, food, healthcare & psychiatric care; pt also verbalize statements of wanting to hurt others and himself, he will scratch & gouge himself when agitated. Per consult, SS presented 2 options for pt to access 5150 eval: 1. Pt to be d/c & walk into [facility] ER to access eval, [facility] to provide eval & 5150 Hold and pt to be re-admitted to [facility]. 2. [facility] to provide transportation for pt to go thru [facility] for a 5150 eval [facility] managers were in agreement that pt would need to be evaluated and a hold written but they were unable to agree to either of the above option. However, MDT would like to see if [facility] can assist w/pt in the ER. SS had t/c brandie/Palak Marrero [phone] (office) or [phone] (), per t/c ESTEPHANIA or Carissa the housekeeping lead where pt was living can meet pt in the lobby and accompany him in the ER when he is d/c to wait for [facility] to evaluate pt. Plan: SS awaiting [facility] decision. Mary Castillo LCSW Addendum: 10/06/19 at 1410 by Mary Castillo SS Amended: Links added.
[2019-10-06] MEDS ORDERED: divalproex sodium 500mg tablet.DR PO ONE (13:50)
[2019-10-06] MEDS: acetaminophen 325mg tablet PO PRN (15:28)
[2019-10-06] MEDS: benzocaine/menthol oral lozeng 1 EACH BOX MM PRN (16:14)
--- NOTE | 2019-10-06 17:00 | NUR ---
Nursing Progress Note: Legal hold: Vol Report received from BRYAN Sánchez with use of SBAR. Why are they here: 3684 written by [place] who writes that Pt states that he would be "better off " and that he was going to get the "grim reaper to kill" either his house staff or her family member. When Pt was asked about this he stated "she tried to get me to do something I didn't want to do." I can control the grim reaper. I don't want to hurt anyone because I would never be able to forgive myself." Assessment What has happened this shift: Pt. asleep at start of shift. Pt. had blood drawn for VA level which was 86 Pt. took medications and ate all meals in community room. Pt. is reports he is in a better mood today and seen conversing with other patients on the unit. Pt. denies SI/HI, A/V H. Pt. c/o pain in left arm and given Motrin with good effect. Pt. seen pacing hallways and comes to nurses station frequently and is difficult to redirect. Pt. requested pain medication for left arm in afternoon and received Tylenol 650mg with good effect. Pt. reports sore throat and received PRN lozenge with good effect. Pt. reported wax build up bilaterally in ears and ear drops ordered for pt. S/I, H/I: Denies A/VH: Denies Sleep: Pt. reports sleeping well. Pt. did not nap today. ADL's: Independent Group attendance: Pt. did not attend group. Were meds taken: Yes Any Med side effects: none reported or observed Mental Status Exam Appearance: adequately groomed, wearing street clothes Eye contact: Direct Behavior: intrusive but redirectable. Speech: Slightly pressured, Mumbled Mood: labile and easily agitated when requests not met. Affect: Blunted Thought process: linear Thought Content: Pt. perseverates on PRN medication. Cognition: Delayed Insight: Poor Judgment: Poor Interventions PRN's used: Motrin and Tylenol x1. Throat lozenge x1 Therapeutic interventions: 1:1 therapeutic assessment, maintained safe therapeutic milieu, provided active listening with positive reinforcement, provided medication administration/education/monitoring as needed; Q15 safety checks. Restraints/seclusion/emergency medication: N/A Justification of Continued Inpatient Treatment: Continued therapeutic support and medication management needed to provide stabilization, prevent decompensation, and improve coping mechanisms decreasing risk to patient and re-admittance
[2019-10-06 20:00] VITALS: BP 113/75
[2019-10-06] MEDS: aripiprazole 5mg tablet PO SCH (20:02)
[2019-10-06] MEDS: hydrOXYzine 25 MG tablet PO PRN (20:02)
[2019-10-06] MEDS: divalproex sodium 500mg tablet.DR PO SCH (20:03)
[2019-10-06] MEDS: prazosin 1mg capsule PO SCH (20:03)
[2019-10-06] MEDS: carbamide peroxide 15ml bottle EACH EAR SCH (20:05)
--- NOTE | 2019-10-06 23:59 | NUR ---
Nursing Progress Note: Legal hold: Vol Report received from Donita ADAMS with use of SBAR. Why are they here: [id number] written by [place] who writes that Pt states that he would be "better off " and that he was going to get the "grim reaper to kill" either his house staff or her family member. When Pt was asked about this he stated "she tried to get me to do something I didn't want to do." I can control the grim reaper. I don't want to hurt anyone because I would never be able to forgive myself." Assessment What has happened this shift: Pt was in the hallway at change of shift and requested bed time medication to go to sleep. Explained to pt that his medication was given on a schedule. He then states he was having arm pain when he overheard another patient talk about receiving tylenol for shoulder pain. Pt then had an outburst and become upset stating he didnt want to live anymore. Pt spent some time talking with Dr. Chacon before going to his room. Pt states "I just dont want to live anymore, Im mad about what somebody said to me and I dont want to talk about it, I just want . I want you to give me what they gave Dilip Mccarthy." Pt was given evening meds along with atarax prn and ear drops as he had requested. pt was med compliant and rested in bed for about an hour. He then returned to the nursing station requesting a q tip to clean out his ears stating the medicine worked to soften the wax. Explained to pt that we dont give qtips out and he became very agitated and began gouging at his eyes. Suggested a warm shower and pt redirected easily and went to the shower calmly. Pt states the shower worked for his ear wax buildup and pt seemed calm and content and went to bed. Pts appetite is good. S/I, H/I: Denies A/VH: Denies Sleep: Pt. reports sleeping well. ADL's: Independent Group attendance: no evening groups Were meds taken: Yes Any Med side effects: none reported or observed Mental Status Exam Appearance: adequately groomed, wearing street clothes, hair is unkempt. Pt showered this evening. Eye contact: Direct Behavior: intrusive, labile, agitated, gouging at his eyes Speech: Slightly pressured, Mumbled Mood: labile and easily agitated when requests not met. Affect: Blunted Thought process: linear Thought Content: Pt. perseverates on prn medication Cognition: Delayed Insight: Poor Judgment: Poor Interventions PRN's used: atarax Therapeutic interventions: 1:1 therapeutic assessment, maintained safe therapeutic milieu, provided active listening with positive reinforcement, provided medication administration/education/monitoring as needed; Q15 safety checks. Restraints/seclusion/emergency medication: N/A Justification of Continued Inpatient Treatment: Continued therapeutic support and medication management needed to provide stabilization, prevent decompensation, and improve coping mechanisms decreasing risk to patient and re-admittance
[2019-10-07 08:00] VITALS: BP 104/72
[2019-10-07] MEDS: carbamide peroxide 15ml bottle EACH EAR SCH ×3 (08:00→20:00)
[2019-10-07] MEDS ORDERED: divalproex sodium 250mg tablet PO SCH (08:00)
[2019-10-07] MEDS: buPROPion SR 150mg tablet PO SCH (08:09)
[2019-10-07] MEDS: risperiDONE 2mg tablet PO SCH (08:09)
[2019-10-07] MEDS: divalproex sodium 500mg tablet.DR PO SCH ×2 (08:09→21:40)
[2019-10-07] MEDS: montelukast 10mg tablet PO SCH (08:09)
[2019-10-07] MEDS: loratadine 10mg tablet PO SCH (08:09)
[2019-10-07] MEDS: pantoprazole 40mg Tablet.DR PO SCH (08:10)
[2019-10-07] MEDS: propranolol 10mg tablet PO SCH ×2 (08:10→21:41)
[2019-10-07] MEDS: ibuprofen tablet 400 MG TABLET PO PRN (09:19)
--- NOTE | 2019-10-07 15:11 | NUR ---
SS had t/c with pt's [facility], per t/c, [facility] will see pt in the ED on Thursday if [facility] d/c him to [facility] and they walk into the ER to request for a MH eval, [facility] will provide eval & 5150 Hold for pt to rt to [facility]. SS had t/c w/[facility], per t/c she will come on Thursday morning to pick pt up at d/c and take him into the ER. [facility] Director & LALA Alcazar informed. Plan: Doctor-ER Doctor call needed on Thursday to facilitate pt access to 1799hold upon arrival @ ER. Mary Castillo RN ORTHO Addendum: 10/07/19 at 1518 by Mary Castillo Amended: Links added.
--- NOTE | 2019-10-07 15:36 | NUR ---
Nursing Progress Note: GUY Cross Legal hold: Vol Report received from Alba ADAMS with use of SBAR. Why are they here: [id number] written by [place] who writes that Pt states that he would be "better off " and that he was going to get the "grim reaper to kill" either his house staff or her family member. When Pt was asked about this he stated "she tried to get me to do something I didn't want to do." I can control the grim reaper. I don't want to hurt anyone because I would never be able to forgive myself." Assessment What has happened this shift: Pt was resting on his bed at change of shift. Pt has many somatic complaints. He is very talkative and needy today. He then states he tore his pectoral muscle doing exercises in group yesterday. Pt encouraged to rest and was given Ibuprofen for pain. Pt did not request any ear drops for his ear wax today. He did request to have a shower and waited patiently for his turn. Pt was med compliant this morning. Pt is seen socializing and smiling with students and fellow peers. After breakfast he was walking slowly, shuffling gait with eyes somewhat closed reporting that he didnt feel right. Mixer And Blender walked him to his bed and encouraged him to rest. Pt will become theatrical when he doesnt get what he asks for. During lunch pt reports that he wanted a string so he can wear a cross around his neck, Pt informed that he is not allowed to have such an item and he began having pressured speech, red in the face reporting that he has the devil inside him. Pt was eventually redirected, ate lunch and began socializing with peers. Pt c/o muscle pain throughout the day unrelieved by anything offered. S/I, H/I: Denies A/VH: Denies Sleep: 6.5hrs NOC ADL's: Independent Group attendance: Pt showered during one group but attended all others. Were meds taken: Yes Any Med side effects: none reported or observed Mental Status Exam Appearance: adequately groomed, wearing street clothes, hair is unkempt. Poor dentition. Eye contact: Direct Behavior: intrusive, labile, and agitated at times Speech: Slightly pressured, Mumbled Mood: labile and easily agitated when requests/demands not met. Affect: Blunted, flat Thought process: linear, goal oriented Thought Content: Pt. perseverates on prn medication Cognition: Delayed A &O X4 Insight: Poor Judgment: Poor Interventions PRN's used: ibuprofen X1 Therapeutic interventions: 1:1 therapeutic assessment, maintained safe therapeutic milieu, provided active listening with positive reinforcement, provided medication administration/education/monitoring as needed; Q15 safety checks. Restraints/seclusion/emergency medication: N/A Justification of Continued Inpatient Treatment: Continued therapeutic support and medication management needed to provide stabilization, prevent decompensation, and improve coping mechanisms decreasing risk to patient and re-admittance
[2019-10-07] MEDS: LORazepam 1 MG tablet PO SCH ×3 (15:59→22:00)
[2019-10-07] MEDS: risperiDONE 2mg tablet PO PRN (15:59)
[2019-10-07] MEDS: benzocaine/menthol oral lozeng 1 EACH BOX MM PRN (16:13)
[2019-10-07 19:00] VITALS: BP 126/81
[2019-10-07] MEDS: prazosin 1mg capsule PO SCH (21:27)
[2019-10-07] MEDS: aripiprazole 5mg tablet PO SCH (21:41)
--- NOTE | 2019-10-08 00:58 | NUR ---
Nursing Progress Note: GUY Cross Legal hold: Vol Report received from BRYAN Duckworth with use of SBAR. Why are they here: [id number] written by [place] who writes that Pt states that he would be "better off " and that he was going to get the "grim reaper to kill" either his house staff or her family member. When Pt was asked about this he stated "she tried to get me to do something I didn't want to do." I can control the grim reaper. I don't want to hurt anyone because I would never be able to forgive myself." Assessment What has happened this shift: Patient is ambulating hallways at change of shift. Later patient complains of a painful bowel movement, he states he had a very large BM earlier. Patient also complains of some nausea. Per other staff this patient has many somatic complaints. Later in the evening patient had a second bowel movement and his initial complaint was resolved. Colace was given later . This patient is well oriented. He paces often. Hi affect is blunted. Patient admits to some depression, "I don't care if I live or ." Patient states he didn't go to group on day shift. He states "group is worthless, It's a sign of weakness." Patient denies S/I, H/I, or hallucinations. Patients nausea subsided. Patient is advised by this commercial loan underwriter that he is in a safe place. Upon retiring to bed the patient walks up to this commercial loan underwriter and says "barber Cyril" in a cheerful voice. S/I, H/I: Denies. A/VH: Denies. Sleep: 6.5hrs NOC ADL's: Independent. Group attendance: Patient denied attendance. Were meds taken: Yes, patient is medicatgion compliant. Any Med side effects: none reported or observed. Mental Status Exam Appearance: adequately groomed and dressed, save for unkept hair. Eye contact: Direct. Behavior: Cooperative, aggitated at times, friendly. Speech: Slightly pressured, Mumbled. Mood: Depressed with moments of brightening. Affect: Blunted, flat Thought process: Linear, goal oriented. Thought Content: Wanting to leave. Cognition: Delayed A &O X4 Insight: Poor Judgment: Poor Interventions PRN's used:DSS Therapeutic interventions: 1:1 therapeutic assessment, maintained safe therapeutic milieu, provided active listening with positive reinforcement, provided medication administration/education/monitoring as needed; Q15 safety checks. Restraints/seclusion/emergency medication: N/A Justification of Continued Inpatient Treatment: Continued therapeutic support and medication management needed to provide stabilization, prevent decompensation, and improve coping mechanisms decreasing risk to patient and re-admittance
[2019-10-08] MEDS: LORazepam 1 MG tablet PO SCH ×5 (02:00→20:00)
[2019-10-08] MEDS: loratadine 10mg tablet PO SCH (07:52)
[2019-10-08] MEDS: divalproex sodium 500mg tablet.DR PO SCH ×2 (07:52→20:36)
[2019-10-08] MEDS: montelukast 10mg tablet PO SCH (07:52)
[2019-10-08] MEDS: propranolol 10mg tablet PO SCH ×2 (07:53→20:37)
[2019-10-08] MEDS: buPROPion SR 150mg tablet PO SCH (07:53)
[2019-10-08] MEDS: risperiDONE 2mg tablet PO SCH (07:53)
[2019-10-08] MEDS: pantoprazole 40mg Tablet.DR PO SCH (07:53)
[2019-10-08] MEDS: carbamide peroxide 15ml bottle EACH EAR SCH ×2 (08:00→20:00)
[2019-10-08] MEDS: ibuprofen tablet 400 MG TABLET PO PRN (10:47)
[2019-10-08] MEDS: LORazepam 1 MG tablet PO PRN (19:53)
[2019-10-08] MEDS: hydrOXYzine 25 MG tablet PO PRN (19:54)
--- NOTE | 2019-10-08 19:56 | NUR ---
Nursing Progress Note: GUY Cross Legal hold: Vol Report received from BRYAN Duckworth with use of SBAR. Why are they here: [id number] written by who writes that Pt states that he would be "better off " and that he was going to get the "grim reaper to kill" either his house staff or her family member. When Pt was asked about this he stated "she tried to get me to do something I didn't want to do." I can control the grim reaper. I don't want to hurt anyone because I would never be able to forgive myself." Assessment What has happened this shift: This senior technical writer met with this patient in the community room. Patient states he is feeling tired, "I've been eating infrequently today." Patient states he has been feeling stressed and is lucero a bad mood. Patient has also been pacing the hallway. When asked if he had a bowel movement patient replies "I just went poo in the shower." This senior technical writer asked the patient if he notified the tech's about having a bowel movement in the shower? The patient said no, "I was embarrassed!" The charge nurse addressed the situation with the patient. He then cleaned up the fecal material in the shower. After this the patient became labile, paced the hallways, he began screaming. The patient was given Ativan and also Atarax. The patient returned to the room. He is now anxious to take his night time medications. S/I, H/I: Denies. A/VH: Denies. Sleep: 6.5hrs NOC ADL's: Independent. Group attendance: Unknown. Were meds taken: Yes, patient is medicatgion compliant. Any Med side effects: None reported or observed. Mental Status Exam Appearance: Adequately groomed and dressed, save for unkept hair. Eye contact: Direct. Behavior: Cooperative, agitated at times, then quite labile. Speech: Slightly pressured, Mumbles. Mood: Depressed with moments of brightening, then angry and physical. Affect: Blunted, flat, depressed. Thought process: Linear. Thought Content: "I want someone to shoot me. Cognition: Oriented X4, delayed. Insight: Poor Judgment: Poor Interventions PRN's used: Atarax, Ativan. Therapeutic interventions: 1:1 therapeutic assessment, maintained safe therapeutic milieu, provided active listening with positive reinforcement, provided medication administration/education/monitoring as needed; Q15 safety checks. Restraints/seclusion/emergency medication: N/A Justification of Continued Inpatient Treatment: Continued therapeutic support and medication management needed to provide stabilization, prevent decompensation, and improve coping mechanisms decreasing risk to patient and re-admittance
[2019-10-08 20:00] VITALS: BP 127/86
[2019-10-08] MEDS: aripiprazole 5mg tablet PO SCH (20:35)
[2019-10-08] MEDS: prazosin 1mg capsule PO SCH (20:35)
[2019-10-09] MEDS: LORazepam 1 MG tablet PO SCH ×4 (02:00→20:00)
[2019-10-09 07:00] VITALS: BP 80/60
[2019-10-09] MEDS: carbamide peroxide 15ml bottle EACH EAR SCH ×2 (08:00→20:00)
[2019-10-09] MEDS: montelukast 10mg tablet PO SCH (08:18)
[2019-10-09] MEDS: loratadine 10mg tablet PO SCH (08:18)
[2019-10-09] MEDS: risperiDONE 2mg tablet PO SCH (08:18)
[2019-10-09] MEDS: propranolol 10mg tablet PO SCH ×2 (08:18→20:00)
[2019-10-09] MEDS: divalproex sodium 500mg tablet.DR PO SCH ×2 (08:18→20:00)
[2019-10-09] MEDS: buPROPion SR 150mg tablet PO SCH (08:18)
[2019-10-09] MEDS: pantoprazole 40mg Tablet.DR PO SCH (08:18)
--- NOTE | 2019-10-09 10:10 | NUR ---
Nursing Progress Note: GUY Cross Legal hold: Vol Report received from Karey Spaulding RN with use of SBAR. Why are they here: [id number] written by [place] who writes that Pt states that he would be "better off " and that he was going to get the "grim reaper to kill" either his house staff or her family member. When Pt was asked about this he stated "she tried to get me to do something I didn't want to do." I can control the grim reaper. I don't want to hurt anyone because I would never be able to forgive myself." Assessment What has happened this shift: Pt was resting on his bed with his eyes closed at change of shift. RN is his POC today as he is very needy, impatient and has labile bx and tantrums when he doesnt get what he asks for. Pt did not get up for breakfast when techs made annoucement. Took much encouragement to get him to sit up and take his medications. Pt eventually ate his breakfast and then asked for a shower. He appeared upset when he was told the showers were full and he needed to wait. RN reiterated that he needed to be patient. Pt walks the hallways slowly with his eyes barely open. He appears to purposefully stumble in attempt to get attention from staff. No SE's were voiced and none were objectively observed by this remote mortgage underwriter. S/I, H/I: Denies A/VH: Denies Sleep: 6.75 hrs NOC ADL's: Independent Group attendance: Were meds taken: Yes Any Med side effects: None reported or observed Mental Status Exam Appearance: Adequately groomed and dressed, unkept hair, poor dentition Eye contact: Direct Behavior: labile Speech: Slightly pressured, Mumbles Mood: Reports depression, angry, impatient Affect: Blunted, flat, depressed Thought process: Linear Thought Content: fixated on somatic needs/complaints Cognition: Oriented X4, delayed Insight: Poor Judgment: Poor Interventions PRN's used: Therapeutic interventions: 1:1 therapeutic assessment, maintained safe therapeutic milieu, provided active listening with positive reinforcement, provided medication administration/education/monitoring as needed; Q15 safety checks. Restraints/seclusion/emergency medication: N/A Justification of Continued Inpatient Treatment: Continued therapeutic support and medication management needed to provide stabilization, prevent decompensation, and improve coping mechanisms decreasing risk to patient and re-admittance. Addendum: 10/09/19 at 1753 by Yasemin Varela RN Amend: Pt refused 1400 dose of Ativan. Just before 1600 pt requested Atarax or Ativan. Requested one-time dose of Ativan from LALA Boogie to replace missed dose. Will continue to monitor.
[2019-10-09] MEDS: ibuprofen tablet 400 MG TABLET PO PRN (13:31)
[2019-10-09] MEDS ORDERED: LORazepam 1 MG tablet PO ONE (16:00)
[2019-10-09] MEDS: hydrOXYzine 25 MG tablet PO PRN (19:21)
[2019-10-09] MEDS: benzocaine/menthol oral lozeng 1 EACH BOX MM PRN (19:21)
[2019-10-09 19:57] VITALS: BP 115/76
[2019-10-09] MEDS: prazosin 1mg capsule PO SCH (21:00)
[2019-10-09] MEDS: aripiprazole 5mg tablet PO SCH (21:00)
[2019-10-09] MEDS: risperiDONE 2mg tablet PO PRN (23:03)
--- NOTE | 2019-10-09 23:05 | NUR ---
Patient is pacing halls complaining of anxiety and agitation. Risperdal given PO.
--- NOTE | 2019-10-09 23:21 | NUR ---
Nursing Progress Note: GUY Cross Legal hold: Vol Report received from BRYAN Fan with use of SBAR. Why are they here: [id number] written by [place] who writes that Pt states that he would be "better off " and that he was going to get the "grim reaper to kill" either his house staff or her family member. When Pt was asked about this he stated "she tried to get me to do something I didn't want to do." I can control the grim reaper. I don't want to hurt anyone because I would never be able to forgive myself." Assessment What has happened this shift: Patient is awake and well oriented. He still exhibits some delusional behavior, such as "I am God!" The patient is cooperative with staff, he does annoy one particular female patient who has demanded that he stop approaching her. This typewriter mechanic spoke to the patient about this and he agrees to stay away from the female. This patient appears to be fixated on the female patient. The patient is having a hard time with direct eye contact tonight. Patient presents as depressed with a flat affect. Patient has less agitation than the previous night. Risperdal was given tonight for his agitation/anxiety.. This patient did not eat much of his dinner tonight, he states he is not hungry. The patient at one point was walking barefoot on the unit. He was redirected to get his shoes on, he complied. The patient is reminded that he is in a safe place, he exhibits understanding. S/I, H/I: Denies A/VH: Denies Sleep: 6.75 hrs NOC ADL's: Independent Group attendance: Were meds taken: Yes Any Med side effects: None reported or observed Mental Status Exam Appearance: Patient is clean, he is encouraged to groom self better. Eye contact: Poor. Behavior: Labile at times. Speech: Slightly pressured, Mumbles, quiet. Mood: Reports depression, angry, impatient. Affect: Blunted, flat, depressed Thought process: Linear. Thought Content: fixated on somatic needs/complaints Cognition: Oriented X4, delayed. Insight: Poor. Judgment: Poor. Interventions PRN's used: Risperdal. Therapeutic interventions: 1:1 therapeutic assessment, maintained safe therapeutic milieu, provided active listening with positive reinforcement, provided medication administration/education/monitoring as needed; Q15 safety checks. Restraints/seclusion/emergency medication: N/A Justification of Continued Inpatient Treatment: Continued therapeutic support and medication management needed to provide stabilization, prevent decompensation, and improve coping mechanisms decreasing risk to patient and re-admittance.
[2019-10-10] MEDS: LORazepam 1 MG tablet PO SCH ×3 (02:00→14:10)
[2019-10-10 08:03] VITALS: BP 101/69
[2019-10-10] MEDS: risperiDONE 2mg tablet PO SCH (08:18)
[2019-10-10] MEDS: divalproex sodium 500mg tablet.DR PO SCH ×2 (08:18→20:43)
[2019-10-10] MEDS: montelukast 10mg tablet PO SCH (08:18)
[2019-10-10] MEDS: loratadine 10mg tablet PO SCH (08:18)
[2019-10-10] MEDS: propranolol 10mg tablet PO SCH ×2 (08:18→20:43)
[2019-10-10] MEDS: pantoprazole 40mg Tablet.DR PO SCH (08:18)
[2019-10-10] MEDS: buPROPion SR 150mg tablet PO SCH (08:18)
[2019-10-10] MEDS: carbamide peroxide 15ml bottle EACH EAR SCH ×2 (08:54→20:47)
--- NOTE | 2019-10-10 11:38 | NUR ---
Reassessment: Pt PO intake continues to fluctuate, averaging 50-75%, likely closely meeting nutrient needs given current wt. Wt fluctuates likely due to false charting as pt wt down 59.9kg in 5 days then down another 32 kg in 2 days. Pt LBM 10/09. Hx GERD receiving protonix. No nutrition diagnosis at this time. Will continue to monitor. Recommendation: 1. Continue regular diet 2. weight per rx 3. Bowel care as needed Addendum: 10/10/19 at 1139 by Wing Marcel BOO Amended: Links added. Addendum: 10/10/19 at [address] I have reviewed and agree with note by Stock Unloader. Malgorzata Henson RD
--- NOTE | 2019-10-10 13:11 | NUR ---
Late note for contact completed on 10/10/19: SS met w/pt's [facility]'s Ux Engineer & [facility]'s Digital Sales Assistant and engaged them in discussion re placement options for pt via [facility]. Per discussion, [facility] homes do not provide support for individuals w/severe mental illness and that [facility] house staff are not trained to provide mental health interventions to support and/or de-escalate individuals when they experience emotional and/or behavioral outbursts as a result of their mental illness. SS suggest placing pt in a respite home thru the and instructing house staff to call LE if/when pt becomes agitated and engages in verbal aggression towards self or others. [facility] indicated that doing so would ask their homes to accept some liabilities associated with pt's bxs, and [facility] was not willing to do so. As [facility] does not have an appropriate placement for pt and pt is not able to d/c to the [place] as he is not able to attend to his ADLs w/o reminders, SS completed & faxed a [facility] referral to [facility] DANIELLE's office to facilitate placement for pt. Plan: SS to f/u w/DANIELLE's office re [facility] referral. Mary Castillo LCSW Addendum: 10/12/19 at 1323 by Mary Castillo SS Amended: Links added.
--- NOTE | 2019-10-10 18:25 | NUR ---
Nursing Progress Note: [facility] Legal hold: Vol Report received from BRYAN Francis with use of SBAR. Why are they here: [id number] written by who writes that Pt states that he would be "better off " and that he was going to get the "grim reaper to kill" either his house staff or her family member. When Pt was asked about this he stated "she tried to get me to do something I didn't want to do." I can control the grim reaper. I don't want to hurt anyone because I would never be able to forgive myself." Assessment What has happened this shift: Patient sleeping at change of shift and up for breakfast. Patient was crying in his room today; complaining about leg pain. Patient recovers quickly from his somatic complaints. Patient in and out of nurses station. Patient went to both groups. Patient goes to many staff members to voice his problems. Patient denies SI/HI. S/I, H/I: Denies A/VH: Denies Sleep: No naps today ADL's: Independent Group attendance: yes Were meds taken: Yes Any Med side effects: None reported or observed Mental Status Exam Appearance: Adequately groomed and dressed, unkept hair, poor dentition Eye contact: Direct Behavior: labile Speech: Slightly pressured, Mumbles Mood: Reports depression Affect: Blunted, flat, depressed Thought process: Linear Thought Content: fixated on somatic needs/complaints Cognition: Oriented X4, delayed Insight: Poor Judgment: Poor Interventions PRN's used: Therapeutic interventions: 1:1 therapeutic assessment, maintained safe therapeutic milieu, provided active listening with positive reinforcement, provided medication administration/education/monitoring as needed; Q15 safety checks. Restraints/seclusion/emergency medication: N/A Justification of Continued Inpatient Treatment: Continued therapeutic support and medication management needed to provide stabilization, prevent decompensation, and improve coping mechanisms decreasing risk to patient and re-admittance.
[2019-10-10] MEDS: hydrOXYzine 25 MG tablet PO PRN (18:58)
[2019-10-10 20:26] VITALS: BP 111/76
[2019-10-10] MEDS: aripiprazole 5mg tablet PO SCH (20:42)
[2019-10-10] MEDS: prazosin 1mg capsule PO SCH (20:43)
[2019-10-11] MEDS: LORazepam 1 MG tablet PO SCH ×4 (02:24→20:20)
--- NOTE | 2019-10-11 02:53 | NUR ---
Nursing Progress Note: Legal hold: Voluntary Client on involuntary status for DTS/DTO. Report received from BRYAN Bowser with use of SBAR. Why are they here: [id number] written by [place] who writes that Pt states that he would be "better of " and that he was going to get the "grim reaper to kill" either his house staff or her family member. When Pt was asked about this he stated "she tried to get me to do something I did n't want to do." I can control the grim reaper. I don't want to hurt anyone because I would never be able to forgive myself." Assessment What has happened this shift: The patient was in the hallway. He came right up to me and asked about Atarax for rash on arms and shoulder. "I'm not crabby, but I feel like crabs are all over me." He laughed. The patient continues to be intrusive and has many Somatic complaints. He spent the evening out on the unit socializing. The patient has been sleeping since HS med pass. S/I, H/I: Denies SI, but makes homicidal remarks. A/VH: Denies. Sleep: See sleep hours. ADL's: Independent. Group attendance: No groups at night Were meds taken: Yes Any Med side effects: No Mental Status Exam Appearance: Disheveled odorous man wearing dirty hospital scrubs Eye contact: No eye contact tonight Behavior: Sleeping Speech: low volume mumbles at times Mood: labile Affect: Blunted Thought process: Slow delusional at times Thought Content: His carter to hurt people Cognition: poor Insight: poor Judgment: poor Interventions PRN's used: Therapeutic interventions: 1:1 therapeutic assessment, maintained safe therapeutic milieu, provided active listening with positive reinforcement, provided medication administration/education/monitoring as needed; Q15 safety checks. Restraints/seclusion/emergency medication: N/A Justification of Continued Inpatient Treatment: Continued therapeutic support and medication management needed to provide stabilization, prevent decompensation, improve coping mechanisms decreasing risk to patient and re-admittance.
[2019-10-11 08:00] VITALS: BP 107/69
[2019-10-11] MEDS: carbamide peroxide 15ml bottle EACH EAR SCH ×2 (08:00→20:00)
[2019-10-11] MEDS: montelukast 10mg tablet PO SCH (08:14)
[2019-10-11] MEDS: buPROPion SR 150mg tablet PO SCH (08:14)
[2019-10-11] MEDS: risperiDONE 2mg tablet PO SCH (08:15)
[2019-10-11] MEDS: divalproex sodium 500mg tablet.DR PO SCH ×2 (08:15→20:20)
[2019-10-11] MEDS: loratadine 10mg tablet PO SCH (08:16)
[2019-10-11] MEDS: propranolol 10mg tablet PO SCH ×2 (08:16→20:20)
[2019-10-11] MEDS: pantoprazole 40mg Tablet.DR PO SCH (08:16)
--- NOTE | 2019-10-11 17:11 | NUR ---
Nursing Progress Note: [facility] Legal hold: Vol Report received from BRYAN Francis with use of SBAR. Why are they here: [id number] written by [place] who writes that Pt states that he would be "better off " and that he was going to get the "grim reaper to kill" either his house staff or her family member. When Pt was asked about this he stated "she tried to get me to do something I didn't want to do." I can control the grim reaper. I don't want to hurt anyone because I would never be able to forgive myself." Assessment What has happened this shift: Patient asleep at change of shift and awoken for breakfast. Patient stated he wasn't hungry and didn't want to eat. RN encouraged patient to get up and eat but patient wouldn't and stayed in bed. Patient got up at 0930 and walked up to the nurse and said he was angry and hungry. Patient said one of the patient's hurt his feelings and everyone he trusts just turns on him. RN encouraged patient to give his peer space and he can talk to me or one of his friends. Patient still upset and stated he is feeling weak. RN asked patient to go sit in the Community Room or go lay down on his bed. "Nobody can tell me what to do!" Patient then said he was going to walk himself to . We still had patient's tray and patient went to the Community room to eat. Patient calmed down but was labile most of the day. Patient's mother came to visit and brought him new clothes. At the end of the day patient was happy and came to show RN his new outfit. Patient was smiling and happy and stated he was doing better. Patient then spent about 20 minutes speaking to RN about [employer] characters. He was animated and excited to talk about them. S/I, H/I: Denies A/VH: Denies Sleep: No naps today ADL's: Independent Group attendance: both groups Were meds taken: Yes Any Med side effects: None reported or observed Mental Status Exam Appearance: Adequately groomed and dressed, unkept hair, poor dentition Eye contact: Direct Behavior: labile Speech: Slightly pressured, Mumbles Mood: Reports depression Affect: Blunted, flat, depressed Thought process: Linear Thought Content: Sad about rejection for female friend and excited about clothes and [employer] Cognition: Oriented X4, delayed Insight: Poor Judgment: Poor Interventions PRN's used: None Therapeutic interventions: 1:1 therapeutic assessment, maintained safe therapeutic milieu, provided active listening with positive reinforcement, provided medication administration/education/monitoring as needed; Q15 safety checks. Restraints/seclusion/emergency medication: N/A Justification of Continued Inpatient Treatment: Continued therapeutic support and medication management needed to provide stabilization, prevent decompensation, and improve coping mechanisms decreasing risk to patient and re-admittance.
[2019-10-11] MEDS: aripiprazole 5mg tablet PO SCH (20:19)
[2019-10-11] MEDS: prazosin 1mg capsule PO SCH (20:20)
[2019-10-11 20:26] VITALS: BP 153/63
--- NOTE | 2019-10-11 22:00 | NUR ---
Nursing Progress Note: [facility] Legal hold: Vol Report received from BRYAN Duckworth with use of SBAR. Why are they here: [id number] written by who writes that Pt states that he would be "better off " and that he was going to get the "grim reaper to kill" either his house staff or her family member. When Pt was asked about this he stated "she tried to get me to do something I didn't want to do." I can control the grim reaper. I don't want to hurt anyone because I would never be able to forgive myself." Assessment What has happened this shift: Pt was in group room working on art pages w/another patient at change of shift. Pt reports he had a good day and attended groups. He states he learned the meaning of life and explained "we all need help sometimes and we should find friends to help and support us and we need to learn to forgive because we can't change the past." pt socialized w/other pts during snack time, and ate a large snack then complained about feeling too full to sleep. Pt then asked for a book to read before bed. S/I, H/I: Denies A/VH: Denies Sleep: No naps today ADL's: Independent Group attendance: both groups Were meds taken: Yes Any Med side effects: None reported or observed Mental Status Exam Appearance: Adequately groomed and dressed, unkept hair, poor dentition Eye contact: Direct Behavior: labile Speech: Slightly pressured, Mumbles Mood: Reports depression Affect: Blunted, flat, depressed Thought process: Linear Thought Content; "the meaning of life" Cognition: Oriented X4, delayed Insight: Poor Judgment: Poor Interventions PRN's used: None Therapeutic interventions: 1:1 therapeutic assessment, maintained safe therapeutic milieu, provided active listening with positive reinforcement, provided medication administration/education/monitoring as needed; Q15 safety checks. Restraints/seclusion/emergency medication: N/A Justification of Continued Inpatient Treatment: Continued therapeutic support and medication management needed to provide stabilization, prevent decompensation, and improve coping mechanisms decreasing risk to patient and re-admittance.
[2019-10-12] MEDS: LORazepam 1 MG tablet PO SCH ×4 (02:00→20:00)
[2019-10-12 07:43] VITALS: BP 95/60
[2019-10-12] MEDS: carbamide peroxide 15ml bottle EACH EAR SCH ×2 (08:00→20:00)
[2019-10-12] MEDS: risperiDONE 2mg tablet PO SCH (09:02)
[2019-10-12] MEDS: buPROPion SR 150mg tablet PO SCH (09:02)
[2019-10-12] MEDS: montelukast 10mg tablet PO SCH (09:02)
[2019-10-12] MEDS: divalproex sodium 500mg tablet.DR PO SCH ×2 (09:03→23:24)
[2019-10-12] MEDS: propranolol 10mg tablet PO SCH ×2 (09:03→20:00)
[2019-10-12] MEDS: loratadine 10mg tablet PO SCH (09:04)
[2019-10-12] MEDS: pantoprazole 40mg Tablet.DR PO SCH (09:04)
--- NOTE | 2019-10-12 13:23 | NUR ---
Late Note for contact completed on 10/11/19 On 10/11/19 SS had t/c w/pt's [facility]'s Lemon Picker, per t/c SS reminded [facility] that pt is still [facility]'s client and has a probate conservator paid for via [facility], SS asked [facility] to continue to identify appropriate placement for pt so he can d/c for [facility]. Per t/c, [facility] asked SS to participate in a MDT w/[facility], [facility], PG's office & community providers to discuss options for pt to d/c from [facility], appropriate conservatorship vehicle to facilitate placement for pt. SS met w/[facility] Director and requested her presence @ the MDT on 10/18 @9:00 AM @ [facility], per discussion, [facility] director will attend the MDT w/SS. Plan: SS will continue to engage w/[facility] & [facility] to identify appropriate placement options for pt so pt can d/c from [facility] Mary Castillo LCSW Addendum: 10/12/19 at 1346 by Mary STEINBERG Amended: Links added.
--- NOTE | 2019-10-12 13:46 | NUR ---
SS had t/c w/[facility] TAD's office to f/u on [facility]'s referral for pt submitted on 10/10/19, per t/c TAD's office informed that they did not recieve the referral. A new one was completed & faxed to [facility]-TAD's office. SS had t/c with [facility]; Chip Arndt & Renae Kerr, per t/c SS received clarification & guidelines re documentation for pt w/re to [facility] efforts to facilitate placement services for pt as he is now on Admin days. SS will document 1-5 contacts/week associated w/efforts to obtain appropriate placement for pt; as pt's situation is an extraordinary one-[facility] does not have a placement that can address his mental health needs and pt cannot access appropriate placement settings w/o [facility] referrals- SS referral to CR & f/u contacts w/[facility] & [facility] to obtain a contact documentation waiver/week fopr the remaining 4 contacts, will maintain [facility]'s compliance for Admin Days authorization. [facility] Supervising [facility] granted a waiver for the remaining 4 contacts re placement efforts for this week as SS did complete [facility] referral and consulted w/the P for a waiver. Mary Castillo LCSW Addendum: 10/12/19 at 1411 by Mary Castillo SS Amended: Links added.
--- NOTE | 2019-10-12 17:30 | NUR ---
Nursing Progress Note: Legal hold: Vol Report received from Princess ADAMS with use of SBAR. Why are they here: [id number] written by [place] who writes that Pt states that he would be "better off " and that he was going to get the "grim reaper to kill" either his house staff or her family member. When Pt was asked about this he stated "she tried to get me to do something I didn't want to do." I can control the grim reaper. I don't want to hurt anyone because I would never be able to forgive myself." Assessment What has happened this shift: Pt. asleep at start of shift. Pt. did not wake up for breakfast until 0900. Pt. took all medications and ate all meals in the community room. Pt. denies SI/HI A/V hallucinations. Pt. continues to be labile, becoming easily agitated when he doesn't immediately receive what he asks for. Pt. napped for 3 hours through lunch today, pt. reports that he did not sleep well last night due to night terrors. Pt. became agitated in the afternoon stating, "I need caffeine! I don't have patience because I don't have caffeine." Pt. was given a book to read which preoccupied him. Pt. showered this afternoon for 45 minutes. S/I, H/I: Denies A/VH: Denies Sleep: napped x1 ADL's: Independent Group attendance: both groups Were meds taken: Yes Any Med side effects: None reported or observed Mental Status Exam Appearance: Adequately showered, groomed, and dressed, unkept hair, poor dentition. Eye contact: Direct Behavior: labile Speech: Slightly pressured, Mumbles Mood: labile, pt. goes from being very animated to very angry or very depressed. Affect: Blunted, flat, depressed Thought process: Linear Thought Content; "I need caffeine!" Cognition: Oriented X4, delayed Insight: Poor Judgment: Poor Interventions PRN's used: Pt. refused PRN. Therapeutic interventions: 1:1 therapeutic assessment, maintained safe therapeutic milieu, provided active listening with positive reinforcement, provided medication administration/education/monitoring as needed; Q15 safety checks. Restraints/seclusion/emergency medication: N/A Justification of Continued Inpatient Treatment: Continued therapeutic support and medication management needed to provide stabilization, prevent decompensation, and improve coping mechanisms decreasing risk to patient and re-admittance.
[2019-10-12] MEDS ORDERED: haloperidol lactate 5mg/ml inj IM ONE (18:45)
[2019-10-12] MEDS ORDERED: LORazepam 2 mg/ml vial ONE (18:54)
[2019-10-12] MEDS ORDERED: haloperidol lactate 5mg/ml inj ONE (18:55)
[2019-10-12] MEDS: prazosin 1mg capsule PO SCH (21:00)
[2019-10-12 23:00] VITALS: BP 102/43
[2019-10-12] MEDS: aripiprazole 5mg tablet PO SCH (23:23)
--- NOTE | 2019-10-13 00:33 | NUR ---
Nursing Progress Note: Legal hold: Vol Report received from Donita ADAMS with use of SBAR. Why are they here: [id number] written by [place] who writes that Pt states that he would be "better off " and that he was going to get the "grim reaper to kill" either his house staff or her family member. When Pt was asked about this he stated "she tried to get me to do something I didn't want to do." I can control the grim reaper. I don't want to hurt anyone because I would never be able to forgive myself." Assessment What has happened this shift: Pt became demanding and agitated when he was requesting caffeine at change of shift and his request was denied. While speaking with charge nurse he began scratching the skin on his arms and clawing at his face. Pt was escorted to his room by Princess LARIOS and Manuel PERALTA. Security was present. Pt was unable to be verbally deescalated and remained a danger to himself. Pt was given Haldol 10 IM and Ativan [address] order. Pt was stating "Im not human I am God and Im choosing not to speak to Humans! I am the God of , I will smite all of you mortals!" While further attempts were made to verbally deescalate patient, he stated "Do not talk to me Human!" After receiving PRNs for agitation, pt became calm and apologized for saying what he did. He slept for a few hours and woke c/o restless legs and asked for medicine. Pt was given some of his scheduled meds and once again he apologized for his behavior. Pt is remorseful and tearful and states "No man or doctor knows what my body needs, only God and myself know what I need." Pt asked for another blanket and went back to sleep. S/I, H/I: Denies A/VH: Denies Sleep: pt is sleeping ADL's: Independent Group attendance: no evening groups Were meds taken: Yes Any Med side effects: None reported or observed Mental Status Exam Appearance: Adequately showered, groomed, and dressed, unkept hair, poor dentition. Eye contact: Direct Behavior: labile Speech: Slightly pressured, Mumbles Mood: labile, pt. goes from being very animated to very angry or very depressed. Affect: Blunted, flat, depressed Thought process: Linear Thought Content; perseverating on having caffeine Cognition: Oriented X4, delayed Insight: Poor Judgment: Poor Interventions PRN's used: Haldol 10, Ativan 2 with good effect Therapeutic interventions: 1:1 therapeutic assessment, maintained safe therapeutic milieu, provided active listening with positive reinforcement, provided medication administration/education/monitoring as needed; Q15 safety checks. Restraints/seclusion/emergency medication: N/A Justification of Continued Inpatient Treatment: Continued therapeutic support and medication management needed to provide stabilization, prevent decompensation, and improve coping mechanisms decreasing risk to patient and re-admittance. Addendum: 10/13/19 at 0414 by Yue Lea RN Pt was given Haldol for agitation, we are aware of the possibility for an adverse reaction as listed under pts allergy/adverse reaction list. LALA Alcazar was present during administration and patient tolerated medication well.
[2019-10-13] MEDS: LORazepam 1 MG tablet PO SCH ×2 (02:00→08:54)
[2019-10-13 08:00] VITALS: BP 106/56
[2019-10-13] MEDS: propranolol 10mg tablet PO SCH ×2 (08:53→20:11)
[2019-10-13] MEDS: loratadine 10mg tablet PO SCH (08:53)
[2019-10-13] MEDS: buPROPion SR 150mg tablet PO SCH (08:54)
[2019-10-13] MEDS: montelukast 10mg tablet PO SCH (08:54)
[2019-10-13] MEDS: pantoprazole 40mg Tablet.DR PO SCH (08:54)
[2019-10-13] MEDS: divalproex sodium 500mg tablet.DR PO SCH ×2 (08:54→20:11)
[2019-10-13] MEDS: risperiDONE 2mg tablet PO SCH (08:54)
[2019-10-13] MEDS: carbamide peroxide 15ml bottle EACH EAR SCH ×2 (08:55→20:00)
[2019-10-13] MEDS: risperiDONE 2mg tablet PO PRN (12:59)
[2019-10-13] MEDS: hydrOXYzine 25 MG tablet PO PRN (12:59)
[2019-10-13] MEDS: LORazepam 1 MG tablet PO PRN (13:00)
[2019-10-13] MEDS: LORazepam 0.5 MG tablet PO SCH ×2 (14:00→20:00)
--- NOTE | 2019-10-13 16:53 | NUR ---
Nursing Progress Note Legal hold: Vol Report received from Princess ADAMS with use of SBAR. Why are they here:[id number] written by [place] who writes that Pt states that he would be "better off " and that he was going to get the "grim reaper to kill" either his house staff or her family member. When Pt was asked about this he stated "she tried to get me to do something I didn't want to do." I can control the grim reaper. I don't want to hurt anyone because I would never be able to forgive myself." Assessment What has happened this shift: Pt. asleep at start of shift. Pt. up for breakfast. He took 2 showers this shift without this nurse knowing. He was told by this sql report writer "we provide one shower per day due to others needing to shower also." Pt has a history of taking 2-3 hour showers. When told no pt became threatening and was given oral pills Risperdal 2mg, Ativan 1mg and Atarax 50mg. He then took a nap and woke up a few hours later. Pt again asked for a shower and was told the same thing this time he accepted the answer without threatening to harm himself. See new medication orders. S/I, H/I: Denies A/VH: Denies Sleep: napped x1 ADL's: Independent Group attendance: Yes Were meds taken: Yes Any Med side effects: None reported or observed Mental Status Exam Appearance: Showered and clean clothing Eye contact: Poor walking around with his eyes closed Behavior: labile Speech: Slightly pressured, Mumbles Mood: labile, pt. goes from being very animated to very angry or very depressed. Affect: Blunted, flat, depressed Thought process: Linear Thought Content; Finding a "detention" Cognition: Oriented X4, delayed Insight: Poor Judgment: Poor Interventions PRN's used: Pt. refused PRN. Therapeutic interventions: provided therapeutic communication and active listening, maintained safe therapeutic milieu, provided active listening with positive reinforcement, provided medication administration/education/monitoring as needed; Q15 safety checks. Restraints/seclusion/emergency medication: N/A Justification of Continued Inpatient Treatment: Continued therapeutic support and medication management needed to provide stabilization, prevent decompensation, and improve coping mechanisms decreasing risk to patient and re-admittance.
[2019-10-13] MEDS: acetaminophen 325mg tablet PO PRN (18:57)
[2019-10-13 19:51] VITALS: BP 114/75
[2019-10-13] MEDS: prazosin 1mg capsule PO SCH (20:11)
[2019-10-13] MEDS: aripiprazole 5mg tablet PO SCH (20:11)
[2019-10-13 21:30] VITALS: BP 105/64
--- NOTE | 2019-10-13 21:45 | NUR ---
Nursing Note: At approximately 0, found pt. laying on the floor on his right side near his bed after this casualty underwriter had left the the room to obtain new bed sheets because pt. had "sweated in them." No apparent or reported injuries, and it appeared that pt. had placed himself on the floor in this position because his knees and arms were tucked into his body in the position. Pt. helped back to bed with that assistance of two staff members, and V/S obtained and were WNL. Pt. then stated, "I don't feel good, my whole body hurts and it feels like an ice pick is sticking in me all over." He presents as visibly tired and weak. Pt. became increasingly anxious and repeatedly stated, "I'm dying! Tell my mom goodbye for me!" He was provided reassurance by this casualty underwriter and reported some contentment, appeared to be exhibiting some attention-seeking behaviors. Pt. then stated, "I'm hungry, I haven't eaten all day." BS was obtained and was 95, and pt. was provided with orange juice and an HS snack and monitored. Upon viewing nutrition records it was found that pt. had only eaten 50% of breakfast, refused lunch, and 25% of dinner. This casualty underwriter educated pt. on the importance of eating in order to have energy, and he reported understanding. After eating pt. stated, "I feel better now, I think my blood sugar was low. I am ready to sleep now." This casualty underwriter educated pt. to use call light if needing to get out of bed during the night and he reported understanding. Bed rail up on one side per pt. request for safety. Fall precautions in place, will continue to monitor. Notified Dr. Felton about pt. "fall" (found to be laying on the floor in a curled up position) with no reported injuries. V/S stable, no new orders given at this time. Nursing Back Strip Machine Operator also notified. Addendum: 10/14/19 at 0409 by Radha Willett RN Per pt. report, he had slid out of the chair he was sitting in next to his bed r/t fatigue.
[2019-10-14] MEDS: LORazepam 0.5 MG tablet PO SCH ×4 (02:00→20:23)
--- NOTE | 2019-10-14 02:47 | NUR ---
Nursing Progress Note: Legal hold: Voluntary Client on voluntary DTS/DTO[]. Report received from nurse with use of SBAR: BRYAN Duckworth Why are they here: Pt. admitted to [facility] on a 5150 written by who writes that Pt states that he would be "better off " and that he was going to get the "grim reaper to kill" either his house staff or her family member. When Pt was asked about this he stated "she tried to get me to do something I didn't want to do." I can control the grim reaper. I don't want to hurt anyone because I would never be able to forgive myself." Pt. has a hx of schizoaffective D/O, Bipolar, and oppositional defiant behavior. He [facility] in [facility] where he was making threats regarding himself and others. Assessment What has happened this shift: Pt. up in the hallway interacting with others at the beginning of the shift, he continues to be intrusive with poor boundaries, however is able to be redirected as needed. Upon greeting this wrier, he immediately requests to take a shower, amd this data analyst report writer informed pt. that he would need to wait until later and shower before bed. Pt. then reported that he no longer wanted a shower, and c/o rt. knee pain. He stated, "It's a 12/10 r/t the weather, I can barely walk on it!" Pt. had been walking the hallways earlier without difficulty, he continues to c/o multiple somatic s/s throughout the shift and exhibit attention-seeking behaviors. Pt. later pacing the hallway impatiently requesting HS medications. 1:1 completed at bedside, he denies S/I, however states, "My depression is very high." Pt. endorses V/STILL of "shadow beings," and grandiose delusions that he is able to control these shadow people and the energy around him. S/I, H/I: Denies A/VH: Pt. reports he sees V/STILL of "shadow beings." Sleep: Pt. reports fatigued, however exhibits some insomnia this shift possibly r/t low BS, see previous note ADL's: Requires some redirection from staff r/t intrusiveness and violation of boundaries at times Group attendance: Pt. does not attend HS snack r/t reported fatigue Were meds taken: yes Any med S/E: Fatigue and "reported fall" (see previous note), will endorse to AM shift Mental Status Exam Appearance: Neat and appropriately dressed Eye contact: Good, intense at times Behavior: Cooperative, fatigued, anxious, impulsive, restless, displays attention-seeking behaviors at times Speech: Pressured and hyperverbal at times, other times mumbled and difficult to understand Mood: Fatigued and restless Affect: Labile Thought process: Tangental, however able to be redirected Thought Content: V/STILL and delusions Cognition: A&O X2 (name and place) Insight: Poor Judgment: Poor Interventions PRN's used: Tylenol Therapeutic interventions: Ensured contract for safety, maintained a safe and therapeutic environment, encouraged independent performance of ADLs, provided clear and simple instructions, reoriented to reality as needed, provided positive reinforcement, and maintained Q 15 min safety checks Restraints/seclusion/emergency medication: N/A Justification of Continued Inpatient Treatment: Per Arturo Alcazar, pt. remains too unstable for discharge at this time. He requires medication adjustments and a safe and therapeutic environment.
--- NOTE | 2019-10-14 03:28 | NUR ---
Nursing Note: Held scheduled 1999 and 199 Ativan per pt. report of fatigue and pt. sleeping.
[2019-10-14] MEDS: risperiDONE 2mg tablet PO SCH (07:28)
[2019-10-14] MEDS: loratadine 10mg tablet PO SCH (07:28)
[2019-10-14] MEDS: montelukast 10mg tablet PO SCH (07:28)
[2019-10-14] MEDS: divalproex sodium 500mg tablet.DR PO SCH ×2 (07:29→20:22)
[2019-10-14] MEDS: pantoprazole 40mg Tablet.DR PO SCH (07:29)
[2019-10-14] MEDS: buPROPion SR 150mg tablet PO SCH (07:29)
[2019-10-14] MEDS: propranolol 10mg tablet PO SCH ×2 (07:29→20:22)
[2019-10-14 08:00] VITALS: BP 95/55
[2019-10-14] MEDS: carbamide peroxide 15ml bottle EACH EAR SCH ×2 (08:00→20:00)
[2019-10-14] MEDS: risperiDONE 2mg tablet PO PRN ×2 (15:30→21:40)
--- NOTE | 2019-10-14 15:48 | NUR ---
SW/Art Therapy 1:1 - The below named therapist, met with patient per request from both the patient and the treatment team to assist patient with the reduction of anger and internalized distress. This will be his third 1:1 session. At the on-set of session, patient was presenting with moderate stress levels and reported still feeling angry within himself. Intervention: Provided attuned empathic listening using bi-lateral sound. Patient reported a reduction in his emotional distress having an initial SUDS re: his Anger of a 11/10 (Subjective level of distress scale). Thematic imagery is relative to the patients thought process and his "special place" which provides him a "resource spot". Following the session and identifying this safe resource space, patient identified a reduction from 10 to 0. Patient freely offered this response following his session (which this therapist recorded): "I was on the verge of losing my will to live. But now that I have my 'special place', I have no desire to hurt myself or anyone else. My desire to live has been restored. (I have no desire to hurt anyone, life is connie, we are all connected by a life force." Patient was encouraged to practice using his "place of peace and safety" as a coping skill when ever he becomes "triggered". Talisha Hernandez" SHADIA Moore Licensed Marriage Family Therapist, [employer] [id number] Art Therapist Addendum: 10/14/19 at 1602 by Talisha Moore Amended: Links added.
--- NOTE | 2019-10-14 17:55 | NUR ---
Nursing Progress Note Legal hold: Vol Report received from BRYAN Garcia with use of SBAR. Why are they here:[id number] written by who writes that Pt states that he would be "better off " and that he was going to get the "grim reaper to kill" either his house staff or her family member. When Pt was asked about this he stated "she tried to get me to do something I didn't want to do." I can control the grim reaper. I don't want to hurt anyone because I would never be able to forgive myself." Assessment What has happened this shift: Pt. asleep at start of shift. He had "brain spotting" today and came out of the room smiling then stated, "I let go of alot of anger and hatred in there" pointing to the room him and the clinician were working in. The Ativan 0200 order was changed the order is now Ativan 1.5mg TID. Pt calm this shift; followed directions and was cooperative today. S/I, H/I: Denies A/VH: Denies Sleep: napped x1 ADL's: Independent Group attendance: Yes Were Meds taken: Yes Any Med side effects: None reported or observed Mental Status Exam Appearance: Showered and clean clothing Eye contact: Poor walking around with his eyes closed Behavior: Calm Speech: Slightly pressured, Mumbles Mood: depressed Affect: Blunted, flat Thought process: Linear Thought Content: he did not talk much today; he seemed tired throughout the day Cognition: Oriented X4, delayed Insight: Poor Judgment: Poor Interventions PRN's used: Pt. refused PRN. Therapeutic interventions: provided therapeutic communication and active listening, maintained safe therapeutic milieu, provided active listening with positive reinforcement, provided medication administration/education/monitoring as needed; Q15 safety checks. Restraints/seclusion/emergency medication: N/A Justification of Continued Inpatient Treatment: Continued therapeutic support and medication management needed to provide stabilization, prevent decompensation, and improve coping mechanisms decreasing risk to patient and re-admittance.
[2019-10-14 19:50] VITALS: BP 95/53
[2019-10-14 20:20] VITALS: BP 120/80
[2019-10-14] MEDS: aripiprazole 5mg tablet PO SCH (20:22)
[2019-10-14] MEDS: prazosin 1mg capsule PO SCH (20:23)
[2019-10-15] MEDS: hydrOXYzine 25 MG tablet PO PRN ×2 (00:37→15:23)
--- NOTE | 2019-10-15 01:17 | NUR ---
Nursing Progress Note: Legal hold: Voluntary Client voluntary for DTS/DTO Report received from nurse with use of SBAR: BRYAN Zheng Why are they here: Pt. admitted to [facility] on a 5150 written by who writes that Pt states that he would be "better off " and that he was going to get the "grim reaper to kill" either his house staff or her family member. When Pt was asked about this he stated "she tried to get me to do something I didn't want to do." I can control the grim reaper. I don't want to hurt anyone because I would never be able to forgive myself." Pt. has a hx of schizoaffective D/O, Bipolar, and oppositional defiant behavior. He currently lives in a Care Home where he was making threats regarding himself and others. Assessment What has happened this shift: Pt. in bed asleep at the beginning of the shift, awoken to obtain V/S and pt. then up interacting with others. He continues to be intrusive with poor boundaries at times, but accepts redirection . 1:1 completed at bedside, pt. denies S/I or H/I, however states, "I am depressed because I want to go home." When questioned by this magazine writer if he feels ready to discharge, pt. reported that the Brain Spotting helped him today to let go of anger over his past. Pt. then stated, "My grandparents passed over today, they were the shadow people I was seeing that were here protecting me." Pt. denies A/V/STILL, however continues to make delusional statements, he reports that a girl with pink hair, red eyes, and fangs comes to sleep with him every night to comfort him. He states, "It's my body projecting her because I have never had sex." Pt. continues to exhibit attention-seeking behaviors and c/o multiple somatic s/s throughout the shift. He reports feeling "dizzy," and requests to have his BS checked, was WNL. Pt. then attended HS snack and impatiently requested HS medications. S/I, H/I: Denies A/VH: Pt. denies Sleep: Pt. reports fatigued, however appears to be fighting sleep (see next note) ADL's: Requires some redirection from staff r/t intrusiveness, violation of boundaries at times, and agitation r/t limit-setting Group attendance: Pt. attends HS snack Were meds taken: yes Any med S/E: None Mental Status Exam Appearance: Hair disheveled, however appropriately dressed Eye contact: Good, intense at times Behavior: Cooperative, restless, anxious, impulsive, agitated at times, displays attention-seeking behaviors Speech: Pressured and hyperverbal at times, other times mumbled and difficult to understand Mood: Restless with agitation at times Affect: Labile Thought process: Tangental, however able to be redirected Thought Content: Linear with delusions Cognition: A&O X2 (name and place) Insight: Poor Judgment: Poor Interventions PRN's used: Atrax and Risperdal Therapeutic interventions: Ensured contract for safety, maintained a safe and therapeutic environment, encouraged independent performance of ADLs, provided clear and simple instructions, reoriented to reality as needed, provided positive reinforcement with limit-setting and redirection as needed, and maintained Q 15 min safety checks Restraints/seclusion/emergency medication: N/A Justification of Continued Inpatient Treatment: Per Arturo Alcazar, pt. remains too unstable for discharge at this time and is GD r/t lack of housing. He requires medication adjustments and a safe and therapeutic environment.
--- NOTE | 2019-10-15 02:03 | NUR ---
Nursing Note: At approximately 2044, pt. became agitated after requesting a shower and being informed by staff that he must wait until tomorrow to take one r/t the fact that he had already taken a shower today (per report from AM shift, limits set to allow pt. one shower per day). Pt. angrily stated, "It's my way or no way! If I don't get a shower now, I will keep myself awake all night until my organs shut down and I !" Pt. began agitatedly pacing the hallway, attempting to ask other staff members for a shower, however he was informed that he would be able to take a shower in the morning. Pt. retreated to his bedroom where he began agitatedly clawing at his facing and pulling his hair. Pt. yelled at this check writer, "I'm a demon, I'm not a human! Humans are my slaves and only good for work and sex!" This check writer provided active listening and was able to re-direct pt. from participating in any self injurious behaviors. SILVESTRE Key obtained, however pt. refused to put medication in his mouth and threatened this check writer, "You put it in my mouth, I dare you!" However, again pt. was able to be redirected and accepted medication, he then apologized to this check writer. LALA Gonsales, notified of pt's behaviors. Pt. later requested to speak to this check writer, and was able to speak in a calm manner, however continued to perseverate on the delusion that he is a demon. Pt. reports that he wants to curse the human race for all of his suffering, and he wants to so the demon inside him can be released. Pt. states, "What if I drink myself to with alcohol, or shoot up drugs so I can ." This check writer continued to provide active listening and attempted to re-direct pt. thoughts to positive thinking. Attention-seeking behaviors continued throughout the shift, pt. requested mouthwash and then attempted to pour it in to the tea he was drinking, mouthwash obtained and removed from room. Later, pt. opened a tea bag and poured the grounds into the water he was drinking, came to the nurse's station stating, "I drank some heavy wine, and now I'm sick." Will endorse these occurrences to AM shift and continue to monitor. At approximately 0100, pt. up in the hallway with underwear on his head pretending to be a Ninja and growling at staff. PRN Atrax administered with effectiveness. However, pt. found to be in bed sleeping naked during Q 15 min checks, covered with a blanket, will endorse to AM shift.
--- NOTE | 2019-10-15 03:00 | NUR ---
Nursing Note: Pt. awakens requesting snack, snack provided. However, pt. unable to return back to sleep and exhibits anxiety AEB restlessness and pacing, he requests something to help him return to sleep. PRN Ativan administered, will continue to monitor.
[2019-10-15] MEDS: LORazepam 1 MG tablet PO PRN (03:22)
[2019-10-15 08:00] VITALS: BP 89/58
[2019-10-15] MEDS: carbamide peroxide 15ml bottle EACH EAR SCH ×2 (08:00→12:07)
[2019-10-15] MEDS: propranolol 10mg tablet PO SCH ×2 (08:00→19:21)
[2019-10-15] MEDS: pantoprazole 40mg Tablet.DR PO SCH (08:41)
[2019-10-15] MEDS: LORazepam 0.5 MG tablet PO SCH ×3 (08:42→19:19)
[2019-10-15] MEDS: divalproex sodium 500mg tablet.DR PO SCH ×2 (08:43→19:19)
[2019-10-15] MEDS: loratadine 10mg tablet PO SCH (08:43)
[2019-10-15] MEDS: risperiDONE 2mg tablet PO SCH (08:44)
[2019-10-15] MEDS: montelukast 10mg tablet PO SCH (08:44)
[2019-10-15] MEDS: buPROPion SR 150mg tablet PO SCH (08:44)
[2019-10-15 10:01] VITALS: BP 112/71
--- NOTE | 2019-10-15 17:25 | NUR ---
Nursing Progress Note: Legal hold: Voluntary Client voluntary for DTS/DTO Report received from nurse with use of SBAR: Radha RN Why are they here: Pt. admitted to [facility] on a 5150 written by who writes that Pt states that he would be "better off " and that he was going to get the "grim reaper to kill" either his house staff or her family member. When Pt was asked about this he stated "she tried to get me to do something I didn't want to do." I can control the grim reaper. I don't want to hurt anyone because I would never be able to forgive myself." Pt. has a hx of schizoaffective D/O, Bipolar, and oppositional defiant behavior. He currently lives in a [facility] where he was making threats regarding himself and others. Assessment What has happened this shift: Pt. in bed asleep at the beginning of the shift, awoken to obtain V/S and pt. then up interacting with others. He continues to be intrusive with poor boundaries at times, but accepts redirection . 1:1 completed at bedside, pt. denies S/I or H/I. Pt received direction for 1 only shower this morning. PT needs redirection throughout the day and continues statements like I hate myself, I make the rules, You cant tell me what to do. Pt. continues to exhibit attention-seeking behaviors and c/o multiple somatic s/s throughout the shift. S/I, H/I: Denies A/VH: Pt. denies Sleep: Per noc shift 3.5 hrs. ADL's: Requires some redirection from staff r/t intrusiveness, violation of boundaries at times, and agitation r/t limit-setting Group attendance: Yes Were meds taken: yes Any med S/E: None Mental Status Exam Appearance: Hair disheveled, however appropriately dressed Eye contact: Good, intense at times Behavior: Cooperative, restless, anxious, impulsive, agitated at times, displays attention-seeking behaviors Speech: Pressured and hyperverbal at times, other times mumbled and difficult to understand Mood: Restless with agitation at times Affect: Labile Thought process: Tangental, however able to be redirected Thought Content: Linear with delusions Cognition: A&O X2 (name and place) Insight: Poor Judgment: Poor Interventions PRN's used: Atarax Therapeutic interventions: Ensured contract for safety, maintained a safe and therapeutic environment, encouraged independent performance of ADLs, provided clear and simple instructions, reoriented to reality as needed, provided positive reinforcement with limit-setting and redirection as needed, and maintained Q 15 min safety checks Restraints/seclusion/emergency medication: N/A Justification of Continued Inpatient Treatment: Jasson Alcazar pt. remains too unstable for discharge at this time and is GD r/t lack of housing. He requires medication adjustments and a safe and therapeutic environment.
--- NOTE | 2019-10-15 18:18 | NUR ---
Pt AM BP low.89/58. Per medication instruction to hold med for SBP below 100. Pt given water po and drank 1 pitcher. BP rechecked 112/71, HR 110. BP med deferred to restart to noc dose schedule again.
[2019-10-15] MEDS: aripiprazole 5mg tablet PO SCH (19:20)
[2019-10-15] MEDS: risperiDONE 2mg tablet PO PRN (19:20)
[2019-10-15 19:38] VITALS: BP 109/69
[2019-10-15] MEDS: prazosin 1mg capsule PO SCH (20:33)
--- NOTE | 2019-10-15 23:50 | NUR ---
Nursing Progress Note: Legal hold: Voluntary Client voluntary for DTS/DTO Report received from nurse with use of SBAR: BRYAN Zheng Why are they here: Pt. admitted to [facility] on a 5150 written by [place] who writes that Pt states that he would be "better off " and that he was going to get the "grim reaper to kill" either his house staff or her family member. When Pt was asked about this he stated "she tried to get me to do something I didn't want to do." I can control the grim reaper. I don't want to hurt anyone because I would never be able to forgive myself." Pt. has a hx of schizoaffective D/O, Bipolar, and oppositional defiant behavior. He currently lives in a Care Home where he was making threats regarding himself and others. Assessment What has happened this shift: Patient is in his bed asleep at shift change. Shortly after he gets up and presents to himself in the carney, he is walking with his eyes closed and when asked to open his eyes he states "They are open." HE reuses to open them walking and refuses to go back to his bed or sit down if he wont open his eyes while walking. Patient demands Atarax at this time. Patient is agreeable to sit down when offered a sandwich. Patient eats sandwich and then take his evening medications, before he is helped back to bed. Patient is up multiple times walking the halls with his eyes closed and demanding Atarax before he goes to bed. Patient needs redirection throughout the shift, and continues to exhibit attention-seeking behaviors. Atarax is administered per patients request this evening to help patient relax and get rest. S/I, H/I: Denies A/VH: Denies Sleep: Currently sleeping, see sleep assessment ADL's: Requires some redirection from staff r/t intrusiveness, violation of boundaries at times, and agitation r/t limit-setting Group attendance: Yes Were meds taken: Yes, Prazosin held for low BP Any med S/E: None Mental Status Exam Appearance: Hair disheveled, however appropriately dressed Eye contact: Minimal, patietn kept eyes closed during most interactions refusing to open them Behavior: Restless, anxious, impulsive, agitated at times, displays attention-seeking behaviors Speech: Pressured and hyperverbal at times, other times mumbled and difficult to understand Mood: Restless with agitation at times Affect: Labile Thought process: Tangental, however able to be redirected Thought Content: Linear with delusions Cognition: A&O X2 (name and place) Insight: Poor Judgment: Poor Interventions PRN's used: Atarax Therapeutic interventions: Ensured contract for safety, maintained a safe and therapeutic environment, encouraged independent performance of ADLs, provided clear and simple instructions, reoriented to reality as needed, provided positive reinforcement with limit-setting and redirection as needed, and maintained Q 15 min safety checks Restraints/seclusion/emergency medication: N/A Justification of Continued Inpatient Treatment: Jasson Alcazar, pt. remains too unstable for discharge at this time and is GD r/t lack of housing. He requires medication adjustments and a safe and therapeutic environment.
[2019-10-16 08:00] VITALS: BP 114/70
[2019-10-16] MEDS: carbamide peroxide 15ml bottle EACH EAR SCH ×2 (08:00→20:47)
[2019-10-16] MEDS: pantoprazole 40mg Tablet.DR PO SCH (08:18)
[2019-10-16] MEDS: montelukast 10mg tablet PO SCH (08:19)
[2019-10-16] MEDS: risperiDONE 2mg tablet PO SCH (08:19)
[2019-10-16] MEDS: buPROPion SR 150mg tablet PO SCH (08:19)
[2019-10-16] MEDS: LORazepam 0.5 MG tablet PO SCH ×3 (08:19→20:42)
[2019-10-16] MEDS: divalproex sodium 500mg tablet.DR PO SCH ×2 (08:19→20:42)
[2019-10-16] MEDS: propranolol 10mg tablet PO SCH ×2 (08:19→20:42)
[2019-10-16] MEDS: loratadine 10mg tablet PO SCH (08:19)
[2019-10-16] MEDS: risperiDONE 2mg tablet PO PRN (14:08)
[2019-10-16] MEDS: hydrOXYzine 25 MG tablet PO PRN ×2 (14:25→20:42)
--- NOTE | 2019-10-16 15:42 | NUR ---
Nursing Progress Note: Legal hold: Voluntary Client voluntary for DTS/DTO Report received from nurse with use of SBAR: BRYAN Otto Why are they here: Pt. admitted to [facility] on a 5150 written by [place] who writes that Pt states that he would be "better off " and that he was going to get the "grim reaper to kill" either his house staff or her family member. When Pt was asked about this he stated "she tried to get me to do something I didn't want to do." I can control the grim reaper. I don't want to hurt anyone because I would never be able to forgive myself." Pt. has a hx of schizoaffective D/O, Bipolar, and oppositional defiant behavior. He currently lives in a [facility] where he was making threats regarding himself and others. Assessment What has happened this shift: Patient is in his bed asleep at shift change. Did not get up for breakfast until 0900. While in the shower defecated in the trash can. He c/o "demons attacking him." He was given PRN's and later went to sleep. S/I, H/I: Denies A/VH: Appears to RIS Sleep: Naps ADL's: Will defecate in the shower when he is angry Group attendance: Yes Were meds taken: Yes Any med S/E: None Mental Status Exam Appearance: Hair disheveled, however appropriately dressed Eye contact: Poor Behavior: Restless, agitated at times, displays attention-seeking behaviors Speech: Pressured and hyperverbal at times, other times mumbled and difficult to understand Mood: Restless with agitation at times Affect: Labile Thought process: Tangental, however able to be redirected Thought Content: Linear with delusions Cognition: A&O X2 (name and place) Insight: Poor Judgment: Poor Interventions PRN's used: Atarax, Risperdal, Ativan Therapeutic interventions: Ensured contract for safety, maintained a safe and therapeutic environment, encouraged independent performance of ADLs, provided clear and simple instructions, reoriented to reality as needed, provided positive reinforcement with limit-setting and redirection as needed, and maintained Q 15 min safety checks Restraints/seclusion/emergency medication: N/A Justification of Continued Inpatient Treatment: Per R. Ottoniel, pt. remains too unstable for discharge at this time and is GD r/t lack of housing. He requires medication adjustments and a safe and therapeutic environment.
[2019-10-16] MEDS: LORazepam 1 MG tablet PO PRN (15:51)
[2019-10-16 20:01] VITALS: BP 103/70
[2019-10-16] MEDS: aripiprazole 5mg tablet PO SCH (20:41)
[2019-10-16] MEDS: prazosin 1mg capsule PO SCH (20:42)
--- NOTE | 2019-10-17 02:17 | NUR ---
Nursing Progress Note: Legal hold: Voluntary Client voluntary for DTS/DTO Report received from nurse with use of SBAR: Zheng RN Why are they here: Pt. admitted to [facility] on a 5150 written by who writes that Pt states that he would be "better off " and that he was going to get the "grim reaper to kill" either his house staff or her family member. When Pt was asked about this he stated "she tried to get me to do something I didn't want to do." I can control the grim reaper. I don't want to hurt anyone because I would never be able to forgive myself." Pt. has a hx of schizoaffective D/O, Bipolar, and oppositional defiant behavior. He currently lives in a [facility] where he was making threats regarding himself and others. Assessment What has happened this shift: The patient was seen in the hallway. He's walking around slowly with eyes almost closed. The patient is disruptive with his demands and somatic complaints. The patient pulls out a piece of paper from his pocket. "As long as this is on me I have enough life force, I don't need to eat or drink this talisman keeps me alive." He continues, "The [employer] is pulling at my life force. they're terrified of their own shadow." He continues to seek attention and will do things to get it. The patient looks very tired, but refuses to lie down for sleep. he was compliant with all HS medications. S/I, H/I: Denies A/VH: Denies Sleep: see sleep assessment ADL's: Independent, needs prompting and redirection. Group attendance: No groups at night Were meds taken: Yes Any med S/E: None Mental Status Exam Appearance: Hair disheveled, malodorous Eye contact: Avoids Behavior: Restless, anxious, impulsive, agitated at times, displays attention-seeking behaviors. Speech: Pressured, mumbles at times. Mood: Restless with agitation at times Affect: Labile Thought process: Tangential, however able to be redirected Thought Content: Delusional. "I am God." Cognition: A&O X2 (name and place) Insight: Poor Judgment: Poor Interventions PRN's used: Atarax, Risperdal Therapeutic interventions: Ensured contract for safety, maintained a safe and therapeutic environment, encouraged independent performance of ADLs, provided clear and simple instructions, reoriented to reality as needed, provided positive reinforcement with limit-setting and redirection as needed, and maintained Q 15 min safety checks Restraints/seclusion/emergency medication: N/A Justification of Continued Inpatient Treatment: Jasson Alcazar, pt. remains too unstable for discharge at this time and is GD r/t lack of housing. He requires medication adjustments and a safe and therapeutic environment.
[2019-10-17] MEDS: risperiDONE 2mg tablet PO PRN ×2 (02:58→15:51)
[2019-10-17] MEDS: mag hydrox/Alum hydrox/simeth 30ml oral suspension PO PRN (03:39)
[2019-10-17] MEDS: buPROPion SR 150mg tablet PO SCH (07:39)
[2019-10-17] MEDS: loratadine 10mg tablet PO SCH (07:39)
[2019-10-17] MEDS: risperiDONE 2mg tablet PO SCH (07:39)
[2019-10-17] MEDS: pantoprazole 40mg Tablet.DR PO SCH (07:39)
[2019-10-17] MEDS: LORazepam 0.5 MG tablet PO SCH ×3 (07:40→20:37)
[2019-10-17] MEDS: divalproex sodium 500mg tablet.DR PO SCH ×2 (07:40→20:37)
[2019-10-17] MEDS: propranolol 10mg tablet PO SCH ×2 (07:40→20:37)
[2019-10-17] MEDS: montelukast 10mg tablet PO SCH (07:40)
[2019-10-17] MEDS: carbamide peroxide 15ml bottle EACH EAR SCH ×2 (07:41→08:00)
[2019-10-17 07:46] VITALS: BP 126/63
--- NOTE | 2019-10-17 09:18 | NUR ---
DISCHARGE PLANNING Called [facility] office to inquire about [facility] referral. Was informed that they received the referral, however, it has not been reviewed yet. Also left a message for Sergio, [facility] coremaking supervisor, requesting a call back. LINDA Ibrahim
[2019-10-17] MEDS: acetaminophen 325mg tablet PO PRN (13:48)
--- NOTE | 2019-10-17 13:55 | NUR ---
Nursing Progress Note: Legal hold: N/A Client is voluntary Report received from nurse with use of SBAR: BRYAN Vidal Why are they here: Pt. admitted to [facility] on a 5150 written by who writes that Pt states that he would be "better off " and that he was going to get the "grim reaper to kill" either his house staff or her family member. When Pt was asked about this he stated "she tried to get me to do something I didn't want to do." I can control the grim reaper. I don't want to hurt anyone because I would never be able to forgive myself." Pt. has a hx of schizoaffective D/O, Bipolar, and oppositional defiant behavior. He currently lives in a [facility] where he was making threats regarding himself and others. Assessment What has happened this shift: Pt was sitting at the table before breakfast in the community room with his eyes shut although he was awake and talking. Pt was cooperative with medications. Pt thought it was still September of 2019 but knew he is at [facility]. Pt stated, "my memory is improving." Pt requested assistance with a hangnail, he wished to trim it with fingernail cutters. Hangnail was very short, too short to cut safely with trimmers. Encouraged pt to apply lotion to it. Pt stated, "I hate lotion." Observed pt speaking with a nursing professor outside of the charting room. Pt farted loudly and unapologetically. Overheard pt making jokes about "chilly willies" and [place] lagers made out of real logs. Pt makes frequent inappropriate remarks. Limit setting and positive reinforcement utilized. Pt approached this RN before lunch to state that he had put 12 to 13 packets of sugar in his coffee, pt complained of feeling funny and stated that "I think that you should check my blood sugar." Explained that pt is not a diabetic so no need to check his blood sugar. Encouraged him to go and sit down and suggested not putting that many sugars in his coffee again. Pt approached this nurse after lunch to report that he had a bowel movement and it hurt because about a week ago he swallowed a piece of comb because he was angry and he wanted it to slice him open from the inside but it didn't work. Pt reports that he pooped out the piece of comb today and so now his anus hurts and he is requesting something for the pain. Pt also stated, you should probably check my vital signs, I'm feeling dizzy." Suggested that pt go and sit down, brought him some Tylenol 650 mg. S/I, H/I: Pt denies A/VH: Pt denies Sleep: Slept 3.25 hours per noc shift report ADL's: Independent, needs prompting and redirection. Group attendance: Yes Were meds taken: Yes Any med S/E: None noted or reported Mental Status Exam Appearance: Disheveled thin young man with nolan of hoodie up. Eye contact: Fair Behavior: Shuffles around unit making scuffing noises with his slippers, frequently walks and sits with his eyes closed, makes inappropriate jokes about penises and body functions, attention seeks. Speech: Clear, audible, somewhat slow and monotoned. Mood: Needy Affect: Blunted Thought process: Circumstantial, perseverative; fixates on somatic complaints. Thought Content: Some anal fixation today focused on bowel movements and farts, many somatic complaints. Cognition: A&O X2 (name and place) Insight: Poor Judgment: Poor Interventions PRN's used: Tylenol 650 mg Therapeutic interventions: 1:1 assessment, active listening, therapeutic conversation, medication administration/education/monitoring, limit setting, redirection, positive reinforcement, distraction, reassurance, reality orientation, encouragement to attend groups, encouragement to use toilet appropriately especially before showers, Q 15 min safety checks Restraints/seclusion/emergency medication: N/A Justification of Continued Inpatient Treatment: Per Arturo Alcazar, pt. remains too unstable for discharge at this time due to symptoms and lack of housing. He requires medication adjustments and a safe and therapeutic environment.
--- NOTE | 2019-10-17 14:25 | NUR ---
Reassessment: appetite appears to have improved greatly, PO intake average 75-100% of regular diet. Documented weights appear to be in error, admission weight was pt stated at 155 kg and since scaled weight has ranged between 62.6 and 95.5 between standing and bedscale. The most recent weight appears to be most accurate at 64.6 kg on standing scale. Pt LBM 10/14. Hx GERD receiving protonix. No nutrition diagnosis at this time. Will continue to monitor. Recommendation: 1. Continue regular diet 2. weight per rx 3. Bowel care as needed Addendum: 10/17/19 at [address] Amended: Links added.
[2019-10-17] MEDS: LORazepam 1 MG tablet PO PRN (15:51)
[2019-10-17] MEDS: benzocaine/menthol oral lozeng 1 EACH BOX MM PRN (16:40)
[2019-10-17 20:00] VITALS: BP 110/71
[2019-10-17] MEDS: aripiprazole 5mg tablet PO SCH (20:37)
[2019-10-17] MEDS: prazosin 1mg capsule PO SCH (20:37)
[2019-10-17] MEDS ORDERED: risperiDONE 2mg tablet PO ONE (23:10)
[2019-10-17] MEDS ORDERED: diphenhydrAMINE 25mg capsule PO ONE (23:10)
[2019-10-18] MEDS ORDERED: LORazepam 2 mg/ml vial IM ONE (00:20)
[2019-10-18] MEDS ORDERED: haloperidol lactate 5mg/ml inj ONE (00:20)
[2019-10-18] MEDS ORDERED: haloperidol lactate 5mg/ml inj IM ONE (00:20)
[2019-10-18] MEDS ORDERED: diphenhydrAMINE 50 mg/ml inj IM ONE (00:20)
[2019-10-18] MEDS ORDERED: diphenhydrAMINE 50 mg/ml inj ONE (00:21)
[2019-10-18] MEDS: LORazepam 2 mg/ml vial ONE ×2 (00:26→00:58)
[2019-10-18 00:42] VITALS: BP 110/64
[2019-10-18 01:44] VITALS: BP 121/64
--- NOTE | 2019-10-18 02:25 | NUR ---
Pt assessed and is calmer at this time, fluids given, ROM done which pt tolerated, he doesn't recall the events leading up to the restraints, but is able to contract for safety, restraints removed at this time. Pt will be monitored in the observation room for the rest of the night.
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
--- NOTE | 2019-10-18 07:20 | NUR ---
DISCHARGE PLANNING Spoke to E[facility], and he reported they do not have any male beds and do not expect to until next week. LINDA Ibrahim
[2019-10-18] MEDS: pantoprazole 40mg Tablet.DR PO SCH (07:30)
[2019-10-18] MEDS: LORazepam 0.5 MG tablet PO SCH ×3 (07:50→20:03)
[2019-10-18] MEDS: propranolol 10mg tablet PO SCH ×2 (07:51→20:03)
[2019-10-18] MEDS: loratadine 10mg tablet PO SCH (07:51)
[2019-10-18] MEDS: risperiDONE 2mg tablet PO SCH (07:52)
[2019-10-18] MEDS: buPROPion SR 150mg tablet PO SCH (07:52)
[2019-10-18] MEDS: divalproex sodium 500mg tablet.DR PO SCH ×2 (07:53→20:03)
[2019-10-18] MEDS: montelukast 10mg tablet PO SCH (07:54)
[2019-10-18 08:00] VITALS: BP 79/43
--- NOTE | 2019-10-18 13:07 | NUR ---
Nursing Progress Note: Legal hold: N/A Client is voluntary Report received from nurse with use of SBAR: Princess Why are they here: Pt. admitted to [facility] on a 5150 written by [place] who writes that Pt states that he would be "better off " and that he was going to get the "grim reaper to kill" either his house staff or her family member. When Pt was asked about this he stated "she tried to get me to do something I didn't want to do." I can control the grim reaper. I don't want to hurt anyone because I would never be able to forgive myself." Pt. has a hx of schizoaffective D/O, Bipolar, and oppositional defiant behavior. [facility] where he was making threats regarding himself and others. Assessment What has happened this shift: Client was in observation room this am to begin the shift after a behavioral outburst the prior shift. Client was too sedated for am medications and he was permitted to sleep. Client woke mid-morning and has been needy and conversation has been inappropriate. Client redirects but will repeat same request or statement within 5 minutes. Client states, " I feel bad about last night" but will not elaborate when questioned. Client took noon medications and was directed to his room due to his persistent behavior of standing at Nurse's Station and asking questions of all to include Staff that is not involved with his care today. No behavioral issues as of this writing (1316 hours). S/I, H/I: Pt denies A/VH: Pt denies Sleep: Pt was unable to fall asleep tonight ADL's: Independent, needs prompting and redirection. Group attendance: Yes Were meds taken: Yes Any med S/E: Pt is reporting restless legs and seemed to become more agitated with evening meds and initial prn of risperidone and benadryl. Mental Status Exam Appearance: Disheveled thin wearing hoodie and sweat pants Eye contact: Fair Behavior: pt was calm cooperative at change of shift talking about tv shows and became increasingly agitatated after evening med pass, Pt was wearing his underwear on his head and leaning over his roommates bed, he later attempted breaking the glass window in his room and hit his mouth, he then attempted hitting, biting and scratching staff. Speech: Clear, audible, somewhat slow and monotoned. Mood: Needy, agitated Affect: Blunted, angry Thought process: Circumstantial, perseverative; fixates on somatic complaints. Thought Content: many somatic complaints. Cognition: A&O X2 (name and place) Insight: Poor Judgment: Poor Interventions PRN's used: Ativan, benadryl, haldol, risperidone Therapeutic interventions: 1:1 assessment, active listening, therapeutic conversation, medication administration/education/monitoring, limit setting, redirection, positive reinforcement, distraction, reassurance, reality orientation, encouragement to attend groups, encouragement to use toilet appropriately especially before showers, Q 15 min safety checks Restraints/seclusion/emergency medication: N/A Justification of Continued Inpatient Treatment: Per Arturo Alcazar, pt. remains too unstable for discharge at this time due to symptoms and lack of housing. He requires medication adjustments and a safe and therapeutic environment. Addendum: 10/18/19 at 1729 by Chino Brandon RN Client required a 1 to 1 with Security present this afternoon. Client would not redirect from feeling as though he wanted to harm himself as well as others. Client was able to control his behaviors after an intervention of over an hour. Client was upset that he could not use the large shower. Client was escorted to small shower to conduct ADL's.
--- NOTE | 2019-10-18 14:17 | NUR ---
Pt's on vol status after losing placement @ [facility]'s home. SS participated in a MDT consult with [facility] & [facility] in an effort to identify an appropriate d/c destination/placement for pt so he can be d/c from [facility]. Per MDT consult: [facility] does not feel that an LPS conservatorship can be done at this time as pt's impairments appears to be behavoioral and that placement w/[facility] would best meets pt's needs at this time. [facility] informed MDT that [facility] homes & staff in the homes are not trained to provide MH interventions in the moment to de-escalate pt. However, [facility] can provide funding if an appropriate placement was available. There were some discussion about pt going to [facility]-which is full at this time- to continue MH treatment for 30-days, and if successful, [facility] will need to place pt in one of their homes; [facility] is not confident that they will find a suitable placement for pt during the 30-days [facility] stay. Plan: As [facility] indicates that it can provide funding for placement for pt if one were found, SS to contact [facility] to advocate for pt. Mary Castillo LCSW Addendum: 10/18/19 at 1427 by Mary STEINBERG Amended: Links added.
--- NOTE | 2019-10-18 14:38 | NUR ---
placement activities: SS received request from [facility] for 2 weeks of PNs documenting placement services/activities for pt. SS reviewed MDT & printed & faxed PNs detailing [facility]'s efforts in facilitating placement services for pt to [facility]. Mary Castillo LCSW Addendum: 10/18/19 at 1441 by Mary STEINBERG Amended: Links added.
[2019-10-18] MEDS: aripiprazole 5mg tablet PO SCH (20:03)
[2019-10-18 20:33] VITALS: BP 99/69
[2019-10-18] MEDS: prazosin 1mg capsule PO SCH (21:00)
--- NOTE | 2019-10-18 21:53 | NUR ---
Nursing Progress Note: Legal hold: N/A Client is voluntary Report received from nurse with use of SBAR: Princess Why are they here: Pt. admitted to [facility] on a 5150 written by Maljamar who writes that Pt states that he would be "better off " and that he was going to get the "grim reaper to kill" either his house staff or her family member. When Pt was asked about this he stated "she tried to get me to do something I didn't want to do." I can control the grim reaper. I don't want to hurt anyone because I would never be able to forgive myself." Pt. has a hx of schizoaffective D/O, Bipolar, and oppositional defiant behavior. He currently lives in a [facility] where he was making threats regarding himself and others. Assessment What has happened this shift: Client was in the group room watching tv quietly at change of shift. Client approached me and apologized about his behaviors last night. He complains his leg muscles are sore where he had his shot last night. Pt was asking "pull my finger..." and then giggling. Pt spent time reading the bible and said he feels better because he read the bible and then went to bed. S/I, H/I: Pt denies A/VH: Pt denies Sleep: Pt is sleeping ADL's: Independent, needs prompting and redirection. Group attendance: Yes Were meds taken: Yes Any med S/E: none reported or observed Mental Status Exam Appearance: Disheveled thin wearing hoodie and sweat pants Eye contact: Fair Behavior: Pt was calm and cooperative this evening, attempted to tell some inappropriate poems and walked away. Speech: Clear, audible, Mood: calm, Affect: Blunted, Thought process: Circumstantial, perseverative; fixates on somatic complaints. Thought Content: many somatic complaints. Cognition: A&O X2 (name and place) Insight: Poor Judgment: Poor Interventions PRN's used: Ativan, benadryl, haldol, risperidone Therapeutic interventions: 1:1 assessment, active listening, therapeutic conversation, medication administration/education/monitoring, limit setting, redirection, positive reinforcement, distraction, reassurance, reality orientation, encouragement to attend groups, encouragement to use toilet appropriately especially before showers, Q 15 min safety checks Restraints/seclusion/emergency medication: N/A Justification of Continued Inpatient Treatment: Per Arturo Alcazar, pt. remains too unstable for discharge at this time due to symptoms and lack of housing. He requires medication adjustments and a safe and therapeutic environment.
[2019-10-19 08:00] VITALS: BP 107/70
[2019-10-19] MEDS: propranolol 10mg tablet PO SCH ×2 (08:19→19:45)
[2019-10-19] MEDS: pantoprazole 40mg Tablet.DR PO SCH (08:19)
[2019-10-19] MEDS: LORazepam 0.5 MG tablet PO SCH ×3 (08:19→20:01)
[2019-10-19] MEDS: divalproex sodium 500mg tablet.DR PO SCH ×2 (08:19→19:45)
[2019-10-19] MEDS: loratadine 10mg tablet PO SCH (08:19)
[2019-10-19] MEDS: risperiDONE 2mg tablet PO SCH (08:20)
[2019-10-19] MEDS: buPROPion SR 150mg tablet PO SCH (08:20)
[2019-10-19] MEDS: montelukast 10mg tablet PO SCH (08:20)
--- NOTE | 2019-10-19 12:39 | NUR ---
Discharge Planning: Coordination of Placement Services Pt's on voluntary status and continues to experience functional impairments (inability to attend to most of his ADLs) due to mental health condition(s). SS accompanied pt to his interview w/[facility] [employer], per discussion, [facility] is leaning towards accepting pt but has no open male beds at this time. Plan: SS will f/u w/[facility]HEL in 1 week. Addendum: 10/19/19 at 1302 by Mary Castillo SS Amended: Links added.
--- NOTE | 2019-10-19 13:02 | NUR ---
Discharge Planning: Placement Services Pt's on voluntary status, continues to experience functional impairments due to severe mental health symptoms. SS had t/c with [facility] in [place] to explore placement options for pt. Per t/c, there are no open male beds @ this time. SS had t/c with [facility], [place], left for the nursing home admissions director requesting rt p/c to explore placement options for pt. Plan: SS will f/u with [facility] tomorrow if no rt p/c was received. Mary Castillo LCSW Addendum: 10/19/19 at 1309 by Mary Castillo Amended: Links added.
--- NOTE | 2019-10-19 13:49 | NUR ---
D/C Planning: Placement SS received t/c from Sergio holcomb pt's [facility]'s status, per t/c [facility] declined to offer services at this time as [facility] does not feel that they have staffing to manage pt at this time. Plan: SS will continue to contact [facility] to explore placement options for pt & engage [facility] in dcp activities. Mary Castillo LCSW Addendum: 10/19/19 at 1355 by Mary Castillo SS Amended: Links added.
[2019-10-19] MEDS: hydrOXYzine 25 MG tablet PO PRN (18:14)
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
[2019-10-19 20:00] VITALS: BP 107/60
[2019-10-19] MEDS: aripiprazole 5mg tablet PO SCH (20:00)
[2019-10-19] MEDS: prazosin 1mg capsule PO SCH (20:16)
--- NOTE | 2019-10-19 20:52 | NUR ---
Nursing Progress Note: Legal hold: N/A. Client is voluntary Report received from nurse with use of SBAR: Princess Why are they here: Pt. admitted to [facility] on a 5150 written by [place] who writes that Pt states that he would be "better off " and that he was going to get the "grim reaper to kill" either his house staff or her family member. When Pt was asked about this he stated "she tried to get me to do something I didn't want to do." I can control the grim reaper. I don't want to hurt anyone because I would never be able to forgive myself." Pt. has a hx of schizoaffective D/O, Bipolar, and oppositional defiant behavior. He currently lives in a Intermediate where he was making threats regarding himself and others. Assessment What has happened this shift: Pt was sitting in a chair in the hallway with his eyes closed at change of shift. Pt asked for evening meds and reported feeling very hungry and was given a sandwich with evening meds. Pt went into the group room and watched tv and ate more snacks after than, then complained of eating too much and went to lay down. S/I, H/I: Pt denies A/VH: Pt denies Sleep: Pt reports sleeping well last night, denies having any nightmares last nigth ADL's: Independent, needs prompting and redirection. Group attendance: Yes Were meds taken: Yes Any med S/E: none reported or observed Mental Status Exam Appearance: Disheveled thin wearing hoodie and sweat pants Eye contact: Fair Behavior: Pt was calm and cooperative this evening, tells some inappropriate jokes and was redirected Speech: Clear, audible, Mood: calm, Affect: Blunted, Thought process: Circumstantial, perseverative; fixates on somatic complaints. Thought Content: many somatic complaints. Cognition: A&O X2 (name and place) Insight: Poor Judgment: Poor Interventions PRN's used: Atarax Therapeutic interventions: 1:1 assessment, active listening, therapeutic conversation, medication administration/education/monitoring, limit setting, redirection, positive reinforcement, distraction, reassurance, reality orientation, encouragement to attend groups, encouragement to use toilet appropriately especially before showers, Q 15 min safety checks Restraints/seclusion/emergency medication: N/A Justification of Continued Inpatient Treatment: Per Arturo Alcazar, pt. remains too unstable for discharge at this time due to symptoms and lack of housing. He requires medication adjustments and a safe and therapeutic environment.
[2019-10-20] MEDS: pantoprazole 40mg Tablet.DR PO SCH (07:30)
[2019-10-20] MEDS: LORazepam 0.5 MG tablet PO SCH ×3 (07:49→20:42)
[2019-10-20] MEDS: loratadine 10mg tablet PO SCH (07:50)
[2019-10-20] MEDS: divalproex sodium 500mg tablet.DR PO SCH ×2 (07:50→20:43)
[2019-10-20] MEDS: propranolol 10mg tablet PO SCH ×2 (07:50→20:43)
[2019-10-20] MEDS: buPROPion SR 150mg tablet PO SCH (07:51)
[2019-10-20] MEDS: risperiDONE 2mg tablet PO SCH (07:51)
[2019-10-20] MEDS: montelukast 10mg tablet PO SCH (07:51)
[2019-10-20 08:00] VITALS: BP 108/67
[2019-10-20] MEDS: benzocaine/menthol oral lozeng 1 EACH BOX MM PRN (09:38)
--- NOTE | 2019-10-20 12:05 | NUR ---
Discharge Planning: Attending HARINDER Alcazar plans to d/c pt on Thursday request dcp for pt. SS had t/c with pt's [facility] conservator- Christin Martino, informed her that pt will need to be picked up on Thursday morning as pt will be d/c at that time. SS had t/c with pt's [facility]'s Qa Auditor-Palak Janes, left informing her of dcp- d/c thursday morning to walk in @ [facility] ACCESS. SS had t/c w/pt's [facility] STAR Team CM & informed of pending d/c for Thursday morning & to coordinate same day appt for pt @ [facility]. Per t/c SS was referred to [facility]'s office to obtained appointment for pt; per [facility]'s office ([place]), [facility] does not schedule f/u appointments and SS was referred to the appointment desk- No available appts on Thursday10/21/19, pt can walk in to be seen by ACCESS. Plan: Pt to d/c 10/31/19 in the morning, transportation via conservator/[facility], pt to walk in @ [facility] for ACCESS services. Mary Castillo LCSW Addendum: 10/20/19 at 1217 by Mary Castillo Amended: Links added.
[2019-10-20] MEDS: hydrOXYzine 25 MG tablet PO PRN (13:09)
--- NOTE | 2019-10-20 14:19 | NUR ---
Placement/DCP: Pt's on voluntary status, pending placement via [facility]. had t/c with [facility]- to facilitate placement services for pt. Per t/c, there are no available beds @ this time. However, [facility] will be adding 8 beds after 10/28/19, they will accept a packet from [facility]. Plan: SS to f/u w/[facility]-STAR Team & [facility] to facilitate pt's access to placement. Mary Castillo LCSW Addendum: 10/20/19 at 1458 by Mary Castillo Amended: Links added.
--- NOTE | 2019-10-20 15:05 | NUR ---
Placement: SS had t/c with pt's payee, [email or web address] [phone], left requesting assistance for funding for [facility]arie upon d/c. Plan: SS to f/u w/christian in the AM and finalize dcp with pt tomorrow. Mary Castillo LCSW Addendum: 10/20/19 at 1509 by Mary STEINBERG Amended: Links added.
[2019-10-20] MEDS: risperiDONE 2mg tablet PO PRN (15:41)
[2019-10-20] MEDS: LORazepam 1 MG tablet PO PRN (15:41)
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
--- NOTE | 2019-10-20 16:52 | NUR ---
Nursing Progress Note: [place] Legal hold: N/A. Client is voluntary Report received from nurse with use of SBAR: Princess Why are they here: Pt. admitted to [facility] on a 5150 written by [place] who writes that Pt states that he would be "better off " and that he was going to get the "grim reaper to kill" either his house staff or her family member. When Pt was asked about this he stated "she tried to get me to do something I didn't want to do." I can control the grim reaper. I don't want to hurt anyone because I would never be able to forgive myself." Pt. has a hx of schizoaffective D/O, Bipolar, and oppositional defiant behavior. He currently lives in a Jail where he was making threats regarding himself and others. Assessment What has happened this shift: Client resting in bed to begin the shift. No somatic complaints. Initially refused VS which were eventually obtained. Client refused medications x 2 . Client up on unit at 0815 hours and appropriate behaviors were observed. This client has a point of contact assigned today (Aidan) and client will be limited to a 20 minute shower due to previous behaviors. Client will also be encouraged to open eyes and maintain good eye contact will conversing with Staff members on this unit. Client refused 1300 Ativan and asked for Atarax in place of Ativan which was given at 1306 hours. Client then went to his room to, "sleep it off". S/I, H/I: Pt denies A/VH: Pt denies Sleep: 9.5 ADL's: Independent, needs prompting and redirection. Group attendance: Yes Were meds taken: Refused am meds x 2as well as afternoon medication. Any med S/E: none reported or observed Mental Status Exam Appearance: Disheveled thin wearing hoodie and sweat pants Eye contact: Fair Behavior: Speech: soft, pressured Mood: calm, Affect: Blunted, Thought process: Circumstantial, perseverative; fixates on somatic complaints. Thought Content: many somatic complaints. Cognition: A&O X2 (name and place) Insight: Poor Judgment: Poor Interventions PRN's used: Ativan, Atarax and Risperdal Therapeutic interventions: 1:1 assessment, active listening, therapeutic conversation, medication administration/education/monitoring, limit setting, redirection, positive reinforcement, distraction, reassurance, reality orientation, encouragement to attend groups, encouragement to use toilet appropriately especially before showers, Q 15 min safety checks Restraints/seclusion/emergency medication: N/A Justification of Continued Inpatient Treatment: Per Arturo Alcazar, pt. remains too unstable for discharge at this time due to symptoms and lack of housing. He requires medication adjustments and a safe and therapeutic environment.
[2019-10-20 19:35] VITALS: BP 121/70
[2019-10-20] MEDS: prazosin 1mg capsule PO SCH (20:43)
[2019-10-20] MEDS: aripiprazole 5mg tablet PO SCH (20:43)
--- NOTE | 2019-10-20 23:54 | NUR ---
Nursing Progress Note Pt is on voluntary status Report received from BRYAN Zheng with use of SBAR. Why are they here: Pt. admitted to [facility] on a 5150 written by [place] who writes that Pt states that he would be "better off " and that he was going to get the "grim reaper to kill" either his house staff or her family member. When Pt was asked about this he stated "she tried to get me to do something I didn't want to do." I can control the grim reaper. I don't want to hurt anyone because I would never be able to forgive myself." Pt. has a history of schizoaffective D/O, Bipolar, and oppositional defiant behavior. He currently lives in a Custodial where he was making threats regarding himself and others. Assessment What has happened this shift: Pt was walking the halls at shift change. This sign writer letterer or painter introduced self and established rapport. Pt requested his night time meds at 1900, explained that he would have to wait. Pt was making silly remarks, my pineda is pineda milker (pt pulls at pineda as if milking a cow). Pt states I cant see because of when I fell(pt has his eyes almost closed); He was told to open his eyes. Pt is wearing a reindeer clip and puts it on top of his head This is attached to my optic nerve and I can see again. Pt makes some in appropriated remarks, but is redirectable. Pt is compliant with all medications and 1:1 assessment. S/I, H/I: None reported or observed. A/VH: None reported or observed. Sleep: Refer to Sleeping Assessment. ADL's: Independent, needs prompting and redirection. Group attendance: production shift supervisor, no group. Were meds taken: Medication compliant. Any med S/E: None reported or observed Mental Status Exam Appearance: Disheveled thin wearing hoodie and sweat pants Eye contact: Fair Behavior: Pt was calm and cooperative this evening, tells some inappropriate jokes and was redirected Speech: Clear, audible, Mood: Animated, cooperative Affect: Blunted Thought process: Circumstantial, perseverative Thought Content: Everything was a joke. Pt did a lot of giggling and grabbing his pineda. Cognition: A&O X2 (name and place) Insight: Poor Judgment: Poor Interventions PRN's used: None Therapeutic interventions: 1:1 assessment, active listening, therapeutic conversation, medication administration/education/monitoring, limit setting, redirection, positive reinforcement, distraction, reassurance, reality orientation, encouragement to attend groups, encouragement to use toilet appropriately especially before showers, Q 15 min safety checks Restraints/seclusion/emergency medication: N/A Justification of Continued Inpatient Treatment: Pt continues to require medication adjustments in a safe and therapeutic environment. Possible discharge plan for Oct 31, 2019.
[2019-10-21 07:30] VITALS: BP 96/51
[2019-10-21] MEDS: loratadine 10mg tablet PO SCH (07:56)
[2019-10-21] MEDS: divalproex sodium 500mg tablet.DR PO SCH ×2 (07:56→21:20)
[2019-10-21] MEDS: pantoprazole 40mg Tablet.DR PO SCH (07:56)
[2019-10-21] MEDS: buPROPion SR 150mg tablet PO SCH (07:56)
[2019-10-21] MEDS: montelukast 10mg tablet PO SCH (07:56)
[2019-10-21] MEDS: LORazepam 0.5 MG tablet PO SCH ×3 (07:56→21:40)
[2019-10-21] MEDS: risperiDONE 2mg tablet PO SCH (07:57)
[2019-10-21] MEDS: propranolol 10mg tablet PO SCH ×2 (07:57→20:00)
--- NOTE | 2019-10-21 15:04 | NUR ---
Nursing Progress Note: Denis De La Rosa is on voluntary status Report received from BRYAN Moses with use of SBAR. Why are they here: Pt. admitted to [facility] on a 5150 written by [place] who writes that Pt states that he would be "better off " and that he was going to get the "grim reaper to kill" either his house staff or her family member. When Pt was asked about this he stated "she tried to get me to do something I didn't want to do." I can control the grim reaper. I don't want to hurt anyone because I would never be able to forgive myself." Pt. has a history of schizoaffective D/O, Bipolar, and oppositional defiant behavior. He currently lives in a Longterm where he was making threats regarding himself and others. Assessment What has happened this shift: Patient was sleeping, as this expert medical writer checked on him, he jumped from bed, stumbled and asked did I miss breakfast?. Advised that breakfast had just arrived, he continued to stumble down the hallway and was directed to open his eyes which he responded its too bright. Medication compliant. Following breakfast patient engaged in a card game with two nursing students. He was observed using clang associations two-poo. He remained interactive required minimal direction to not be inappropriate We are just jumping on each others monkeys. Met with SW who advised him of discharge plan, patient responded in a positive manner without any outbursts or inappropriate responses. Returned to bed, unable to wake up enought to have lunch, while attempting to waken him, he just brushed off the attempt and continued to sleep. 1300 dose of ativan held, due to excessive drowsiness. S/I, H/I: Denies A/VH: Denies Sleep: 7 ADL's: Independent Group attendance: No Were meds taken: Medication compliant. Held 1300 ativan due to excessive drowsiness Any med S/E: None reported or observed Mental Status Exam Appearance: Disheveled, wearing street clothes Eye contact: Fair Behavior: Calm, cooperative, withdrawn Speech: mumbled, clear once awake Mood: upbeat when interacting with nursing students, withdrawn after they left Affect: constricted Thought process: clang associations during games, concrete related to needs Thought Content: delusional, difficult to determine Cognition: A&O X2 (name and place) Insight: Poor Judgment: Poor Interventions PRN's used: None Therapeutic interventions: 1:1 assessment, active listening, therapeutic conversation, medication administration/education/monitoring, limit setting, redirection, positive reinforcement, distraction, reassurance, reality orientation, encouragement to attend groups, encouragement to use toilet appropriately especially before showers, Q 15 min safety checks Restraints/seclusion/emergency medication: N/A Justification of Continued Inpatient Treatment: Pt continues to require medication adjustments in a safe and therapeutic environment. Possible discharge plan for Oct 31, 2019.
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
[2019-10-21] MEDS: acetaminophen 325mg tablet PO PRN (18:11)
[2019-10-21 19:46] VITALS: BP 117/72
[2019-10-21] MEDS: prazosin 1mg capsule PO SCH (21:00)
[2019-10-21] MEDS: aripiprazole 5mg tablet PO SCH (21:21)
--- NOTE | 2019-10-21 23:55 | NUR ---
Nursing Progress Note Pt is on voluntary status Report received from BRYAN Zheng with use of SBAR. Why are they here: Pt. admitted to [facility] on a 5150 written by [place] who writes that Pt states that he would be "better off " and that he was going to get the "grim reaper to kill" either his house staff or her family member. When Pt was asked about this he stated "she tried to get me to do something I didn't want to do." I can control the grim reaper. I don't want to hurt anyone because I would never be able to forgive myself." Pt. has a history of schizoaffective D/O, Bipolar, and oppositional defiant behavior. He currently lives in a [facility] where he was making threats regarding himself and others. Assessment What has happened this shift: Pt is observed wandering the unit at shift change. Pt requests his night time meds at 1900. Pt is compliant with medications and 1:1 assessment. Pt is less intrusive then last night. Pt requests to clip his nails. Pt retires to bed early. This lyric writer had to wake pt up for night time med. Pts Prazosin and Propranolol were held BP 92/60. No behavioral issues noted this shift. S/I, H/I: None reported or observed. A/VH: None reported or observed. Sleep: Refer to Sleeping Assessment. ADL's: Independent, needs prompting and redirection. Group attendance: shift supervisor film processing, no group. Were meds taken: Medication compliant. Any med S/E: None reported or observed Mental Status Exam Appearance: Clean, wearing own clothes. Eye contact: Fair Behavior: Pt was calm and cooperative this evening, tells some inappropriate jokes and was redirected Speech: Clear, audible, Mood: Tired Affect: Flat Thought process: Circumstantial, disorganized Thought Content: Pt wants his night time meds. Cognition: A&O X2 (name and place) Insight: Poor Judgment: Poor Interventions PRN's used: None Therapeutic interventions: 1:1 assessment, active listening, therapeutic conversation, medication administration/education/monitoring, limit setting, redirection, positive reinforcement, distraction, reassurance, reality orientation, encouragement to attend groups, encouragement to use toilet appropriately especially before showers, Q 15 min safety checks Restraints/seclusion/emergency medication: N/A Justification of Continued Inpatient Treatment: Pt continues to require medication adjustments in a safe and therapeutic environment. Possible discharge plan for Oct 24, 2019.
[2019-10-22] MEDS: pantoprazole 40mg Tablet.DR PO SCH (07:50)
[2019-10-22] MEDS: LORazepam 0.5 MG tablet PO SCH ×3 (07:50→20:30)
[2019-10-22] MEDS: buPROPion SR 150mg tablet PO SCH (07:50)
[2019-10-22] MEDS: loratadine 10mg tablet PO SCH (07:51)
[2019-10-22] MEDS: risperiDONE 2mg tablet PO SCH (07:51)
[2019-10-22] MEDS: divalproex sodium 500mg tablet.DR PO SCH ×2 (07:51→20:30)
[2019-10-22] MEDS: propranolol 10mg tablet PO SCH ×2 (07:52→20:30)
[2019-10-22] MEDS: montelukast 10mg tablet PO SCH (07:52)
[2019-10-22 08:00] VITALS: BP 117/63
[2019-10-22] MEDS: hydrOXYzine 25 MG tablet PO PRN (15:31)
--- NOTE | 2019-10-22 16:06 | NUR ---
Nursing Progress Note: Lico De La Rosa is on voluntary status Report received from BRYAN Otto with use of SBAR. Why are they here: Pt. admitted to [facility] on a 5150 written by [place] who writes that Pt states that he would be "better off " and that he was going to get the "grim reaper to kill" either his house staff or her family member. When Pt was asked about this he stated "she tried to get me to do something I didn't want to do." I can control the grim reaper. I don't want to hurt anyone because I would never be able to forgive myself." Pt. has a history of schizoaffective D/O, Bipolar, and oppositional defiant behavior. He currently lives in a [facility] where he was making threats regarding himself and others. Assessment What has happened this shift: Client in bed to begin shift. Initially refused vital signs and medications but both were conducted with prompts. Client consumed breakfast and then showered per behavioral plan. Client did make statements of potential harm to self and others but he redirected with staff interventions. Client went to his room after shower and is resting at this time (1214 hours). Client came to group room for lunch, received mid day medications and returned to his room to rest. Client presented to policy writer sales at 1512 hours and stated that, " I feel like my body is shutting down and losing the will to live". Client given 1:1 and PRN of Atarax per orders. Client then went to rest in his room. Client has done well today with impulse control issues and has been encouraged to utilize any measures he is able to utilize to decrease episodes of acting out. S/I, H/I: None reported or observed. A/VH: None reported or observed. Sleep: 8.5 hours last shift. ADL's: Independent, needs prompting and redirection. Group attendance: Were meds taken: Medication compliant. Any med S/E: None reported or observed Mental Status Exam Appearance: Clean, wearing own clothes. Eye contact: Fair Behavior: Pt was calm and cooperative this evening, tells some inappropriate jokes and was redirected Speech: Clear, audible, Mood: Tired Affect: Flat Thought process: Circumstantial, disorganized Thought Content: Pt wants his night time meds. Cognition: A&O X2 (name and place) Insight: Poor Judgment: Poor Interventions PRN's used: None Therapeutic interventions: 1:1 assessment, active listening, therapeutic conversation, medication administration/education/monitoring, limit setting, redirection, positive reinforcement, distraction, reassurance, reality orientation, encouragement to attend groups, encouragement to use toilet appropriately especially before showers, Q 15 min safety checks Restraints/seclusion/emergency medication: N/A Justification of Continued Inpatient Treatment: Pt continues to require medication adjustments in a safe and therapeutic environment. Possible discharge plan for Oct 24, 2019.
[2019-10-22 20:00] VITALS: BP 104/59
[2019-10-22] MEDS: prazosin 1mg capsule PO SCH (20:29)
[2019-10-22] MEDS: aripiprazole 5mg tablet PO SCH (20:30)
--- NOTE | 2019-10-23 01:49 | NUR ---
Nursing Progress Note: Legal hold: Voluntary Client voluntary for DTS/DTO Report received from nurse with use of SBAR: Zheng RN Why are they here: Pt. admitted to [facility] on a 5150 written by who writes that Pt states that he would be "better off " and that he was going to get the "grim reaper to kill" either his house staff or her family member. When Pt was asked about this he stated "she tried to get me to do something I didn't want to do." I can control the grim reaper. I don't want to hurt anyone because I would never be able to forgive myself." Pt. has a hx of schizoaffective D/O, Bipolar, and oppositional defiant behavior. He currently lives in a Detention where he was making threats regarding himself and others. Assessment What has happened this shift: The patient was found in his bed at shift change. He stayed there until HS med pass. The patient went to the group room for snacks, then right back to bed. "I'm really depressed...You people are not helping me." The patient was not behavioral while awake. He took HS meds, then back to bed. S/I, H/I: Denies A/VH: Denies Sleep: see sleep assessment ADL's: Independent, needs prompting and redirection. Group attendance: No groups at night Were meds taken: Yes Any med S/E: None Mental Status Exam Appearance: Hair disheveled, malodorous, eyes half closed Eye contact: Avoids Behavior: Restless, anxious, impulsive, agitated at times, displays attention-seeking behaviors. Speech: Pressured, mumbles at times. Mood: Restless with agitation at times Affect: Labile Thought process: Tangential, however able to be redirected Thought Content: Delusional. "I am God." Cognition: A&O X2 (name and place) Insight: Poor Judgment: Poor Interventions PRN's used: Atarax Therapeutic interventions: Ensured contract for safety, maintained a safe and therapeutic environment, encouraged independent performance of ADLs, provided clear and simple instructions, reoriented to reality as needed, provided positive reinforcement with limit-setting and redirection as needed, and maintained Q 15 min safety checks Restraints/seclusion/emergency medication: N/A Justification of Continued Inpatient Treatment: Jasson Alcazar, pt. remains too unstable for discharge at this time and is GD r/t lack of housing. He requires medication adjustments and a safe and therapeutic environment.
[2019-10-23] MEDS: propranolol 10mg tablet PO SCH ×2 (07:00→07:37)
[2019-10-23] MEDS: LORazepam 0.5 MG tablet PO SCH ×3 (07:37→21:36)
[2019-10-23] MEDS: divalproex sodium 500mg tablet.DR PO SCH ×2 (07:37→20:23)
[2019-10-23] MEDS: montelukast 10mg tablet PO SCH (07:37)
[2019-10-23] MEDS: loratadine 10mg tablet PO SCH (07:37)
[2019-10-23] MEDS: buPROPion SR 150mg tablet PO SCH (07:37)
[2019-10-23] MEDS: pantoprazole 40mg Tablet.DR PO SCH (07:37)
[2019-10-23] MEDS: risperiDONE 2mg tablet PO SCH (07:37)
[2019-10-23 07:52] VITALS: BP 94/60
--- NOTE | 2019-10-23 15:18 | NUR ---
Nursing Progress Note: Lico Legal hold: Voluntary Client voluntary for DTS/DTO Report received from nurse with use of SBAR:BRYAN Vidal Why are they here: Pt. admitted to [facility] on a 5150 written by who writes that Pt states that he would be "better off " and that he was going to get the "grim reaper to kill" either his house staff or her family member. When Pt was asked about this he stated "she tried to get me to do something I didn't want to do." I can control the grim reaper. I don't want to hurt anyone because I would never be able to forgive myself." Pt. has a hx of schizoaffective D/O, Bipolar, and oppositional defiant behavior. He currently lives in a [facility] where he was making threats regarding himself and others. Assessment What has happened this shift: Client was in bed to start the shift and was resting with eyes closed and respirations even and unlabored. Client permitted VS and initially refused am medications but after 1:1, client agreed to take his morning medications. Client was verbally aggressive with a Tech this am and after redirection, client apologized to Tech and then returned to his room to rest. Client was given an extensive 1:1 as it pertains to discharge and behaviors. 1300 Ativan was held secondary to sedation. Client just came from his room (1342 hours)and is ambulating in hallways. Client soon returned to his room where he is resting as of the time of this entry (1516 hours). S/I, H/I: Denies A/VH: Denies Sleep: see sleep assessment ADL's: Independent, needs prompting and redirection. Group attendance: No groups at night Were meds taken: Yes Any med S/E: None Mental Status Exam Appearance: Hair disheveled, malodorous, eyes half closed Eye contact: Avoids Behavior: Restless, anxious, impulsive, agitated at times, displays attention-seeking behaviors. Speech: Pressured, mumbles at times. Mood: Restless with agitation at times Affect: Labile Thought process: Tangential, however able to be redirected Thought Content: Delusional. "I am God." Cognition: A&O X2 (name and place) Insight: Poor Judgment: Poor Interventions PRN's used: Therapeutic interventions: Ensured contract for safety, maintained a safe and therapeutic environment, encouraged independent performance of ADLs, provided clear and simple instructions, reoriented to reality as needed, provided positive reinforcement with limit-setting and redirection as needed, and maintained Q 15 min safety checks Restraints/seclusion/emergency medication: N/A Justification of Continued Inpatient Treatment: Jasson Alcazar, pt. remains too unstable for discharge at this time and is GD r/t lack of housing. He requires medication adjustments and a safe and therapeutic environment.
[2019-10-23 19:57] VITALS: BP 111/65
[2019-10-23] MEDS: prazosin 1mg capsule PO SCH (20:23)
[2019-10-23] MEDS: aripiprazole 5mg tablet PO SCH (20:24)
--- NOTE | 2019-10-24 00:42 | NUR ---
Nursing Progress Note: Legal hold: Voluntary Client voluntary for DTS/DTO Report received from nurse with use of SBAR: BRYAN Zheng Why are they here: Pt. admitted to [facility] on a 5150 written by [place] who writes that Pt states that he would be "better off " and that he was going to get the "grim reaper to kill" either his house staff or her family member. When Pt was asked about this he stated "she tried to get me to do something I didn't want to do." I can control the grim reaper. I don't want to hurt anyone because I would never be able to forgive myself." Pt. has a hx of schizoaffective D/O, Bipolar, and oppositional defiant behavior. He currently lives in a [facility] where he was making threats regarding himself and others. Assessment What has happened this shift: The patient was seen in the hallway at shift change. He is aware that he's being discharged to a motel tomorrow. He continues to be intrusive, inappropriate, and attention seeking. At one time, he came out of his room with pillows shoved up his shirt, "I am she-man." He finally stopped after being repeatedly told that it's inappropriate. The patient spent the evening in group room and his room, took HS meds without problem and went to bed. S/I, H/I: Denies A/VH: Denies Sleep: see sleep assessment ADL's: Independent, needs prompting and redirection. Group attendance: No groups at night Were meds taken: Yes Any med S/E: None Mental Status Exam Appearance: Hair disheveled, malodorous, Eye contact: Avoids, keeps eyers half closed Behavior: Restless, anxious, impulsive, agitated at times, displays attention-seeking behaviors. Speech: Pressured, mumbles at times. Mood: Restless with agitation at times Affect: Labile Thought process: Tangential, however able to be redirected Thought Content: Delusional. "I am She-Man." Cognition: A&O X2 (name and place) Insight: Poor Judgment: Poor Interventions PRN's used: Atarax Therapeutic interventions: Ensured contract for safety, maintained a safe and therapeutic environment, encouraged independent performance of ADLs, provided clear and simple instructions, reoriented to reality as needed, provided positive reinforcement with limit-setting and redirection as needed, and maintained Q 15 min safety checks Restraints/seclusion/emergency medication: N/A Justification of Continued Inpatient Treatment: Jasson Alcazar, pt. remains too unstable for discharge at this time and is GD r/t lack of housing. He requires medication adjustments and a safe and therapeutic environment.
[2019-10-24] MEDS: loratadine 10mg tablet PO SCH (07:33)
[2019-10-24] MEDS: buPROPion SR 150mg tablet PO SCH (07:33)
[2019-10-24] MEDS: LORazepam 0.5 MG tablet PO SCH ×2 (07:34→13:52)
[2019-10-24] MEDS: montelukast 10mg tablet PO SCH (07:34)
[2019-10-24] MEDS: pantoprazole 40mg Tablet.DR PO SCH (07:34)
[2019-10-24] MEDS: risperiDONE 2mg tablet PO SCH (07:34)
[2019-10-24] MEDS: propranolol 10mg tablet PO SCH (07:34)
[2019-10-24] MEDS: divalproex sodium 500mg tablet.DR PO SCH (07:35)
[2019-10-24 08:00] VITALS: BP 105/63
[2019-10-24] MEDS ORDERED: HYDR-3686 PO ×2 (12:48→23:55)
[2019-10-24] MEDS ORDERED: MONT10TA24 PO (12:48)
[2019-10-24] MEDS ORDERED: LORA10TA7 PO (12:48)
[2019-10-24] MEDS ORDERED: PRAZ1CAP5 PO (12:48)
[2019-10-24] MEDS ORDERED: OMEP20TA23 PO (12:48)
[2019-10-24] MEDS ORDERED: PROP10TA10 PO (12:48)
[2019-10-24] MEDS ORDERED: DIVA500T2 PO (12:48)
[2019-10-24] MEDS ORDERED: ATI1T PO (12:48)
[2019-10-24] MEDS ORDERED: BUPR-84 PO (12:48)
--- NOTE | 2019-10-24 14:08 | NUR ---
Discharge Planning: SS met w/pt & reviewed dcp. Pt is fully aware of pending d/c for today and is looking fwd to it. SS also had t/c w/Pt's [facility] team Luis & reviewed dcp w/him. Per t/c, Sandeep informed SS that STAR team "cannot touch client's money". As a result, SS completed an APS referral to facilitate additional support for pt following d/c. SS also had t/c with [facility] [employer] Crisis team and provided referral for check-in with client for tonight & tomorrow morning, per t/c [facility] [employer] [facility] does not operate in the evening but if pt calls them in the morning they will go out and check-in with him. Pt's d/c'd. SS referral closed. Mary Castillo LCSW Addendum: 10/24/19 at 1436 by Mary Castillo Amended: Links added.
--- NOTE | 2019-10-24 15:10 | NUR ---
Nursing Discharge Note: Pt was discharged from [facility] at 1450 and picked up by a [facility] branch customer service representative who took him to the [facility]. Pt was mildly anxious about his living situation and sad to leave the unit where he states he has developed a trust with [facility] staff. Pt denies SI/HI and is in no acute physical or emotional distress. Pt has been improving since admission and understands his discharge instructions, including F/U and medications. His valuables were inventoried by Quincy Cylinder Tester, with the Pt and returned to him. Pt did not need nicotine replacement.
[2019-10-24] MEDS ORDERED: BUPR150T8 PO (23:48)
[2019-10-24] MEDS ORDERED: BUPR-83 PO (23:50)
[2019-10-24] MEDS ORDERED: BUPR100T7 PO (23:51)
[2019-10-24] MEDS ORDERED: DIVA500T39 PO (23:53)
[2019-10-24] MEDS ORDERED: LORA-269 PO (23:58)
[2019-10-25] MEDS ORDERED: PRAZ1CAP5 PO
[2019-10-25] MEDS ORDERED: PROP10TA10 PO (00:02)
[2019-10-25] MEDS ORDERED: LORA10TA7 PO (00:03)
[2019-10-25] MEDS ORDERED: MONT10TA24 PO (00:04)
[2019-10-25] MEDS ORDERED: OMEP-271 PO (00:05)
== END 2019-10-24 14:30 | disposition short-term general hospital (02) | DRG 750 ==
LOC: ADULT MH 09:32
PROVIDERS: ADMIT Psychiatry & Neurology Psychiatry; ATTEND Psychiatry & Neurology Psychiatry
DX: F25.0 Schizoaffective disorder, bipolar type (principal); R45.851 Suicidal ideations; F29 Unspecified psychosis not due to a substance or known physiological condition; F12.90 Cannabis use, unspecified, uncomplicated; K08.89 Other specified disorders of teeth and supporting structures; K21.9 Gastro-esophageal reflux disease without esophagitis; F43.12 Post-traumatic stress disorder, chronic; F51.4 Sleep terrors [night terrors]; F91.3 Oppositional defiant disorder; F31.9 Bipolar disorder, unspecified; J45.909 Unspecified asthma, uncomplicated; Z79.899 Other long term (current) drug therapy; Z88.8 Allergy status to other drugs, medicaments and biological substances
CPT/HCPCS: 36415; 80061; 80164; 81003; 82948; 87081; J1200; J1630; J2060; Q0163; Z7610

== ENCOUNTER 2019-10-24 17:17 | Emergency (ER) | payer MEDICAID ==
[~2019-10-24] VITALS: Ht 172.7 cm; Wt 65.0 kg
[~2019-10-24 17:17] MED LIST changes: +ATI1T PO; +BUPR-84 PO; +DIVA500T2 PO; +PRAZ1CAP5 PO
[2019-10-24 18:57] LABS: BASOPHILS % (AUTO) 0.3 % (0-1); EOSINOPHILS % (AUTO) 0 % (0-6); HEMATOCRIT 42.7 % (42.0-52.0); HEMOGLOBIN 15.1 g/dl (14.0-17.9); LYMPHOCYTES # (AUTO) 1.1 X10'3 (1.1-4.8); LYMPHOCYTES % (AUTO) 15.7 % (21-51); MEAN CORPUSCULAR HEMOGLOBIN 30.5 PG (27.0-31.0); MEAN CORPUSCULAR HGB CONC 35.4 g/dL (33.0-36.5); MEAN PLATELET VOLUME 8.6 FL (7.4-10.4); MONOCYTES # (AUTO) 1.7 X10'3 (0-0.9); MONOCYTES % (AUTO) 24.3 % (2-12); NEUTROPHILS # (AUTO) 4.1 X10'3 (1.8-7.7); NEUTROPHILS % (AUTO) 59.7 % (42-75); PLATELET COUNT 96 X10'3 (140-440); RED BLOOD COUNT 4.96 X10'6 (4.70-6.10); RED CELL DISTRIBUTION WIDTH 12.9 % (11.5-14.5)
[2019-10-24 19:15] LABS: URINE AMPHETAMINE SCREEN NEGATIVE (Neg); URINE BARBITUATE SCREEN NEGATIVE (Neg); URINE BENZODIAZEPINES SCREEN NEGATIVE (Neg); URINE CANNABINOID SCREEN NEGATIVE (Neg); URINE COCAINE SCREEN NEGATIVE (Neg); URINE METHADONE SCREEN NEGATIVE (Neg); URINE OPIATE SCREEN NEGATIVE (Neg); URINE PHENCYCLIDINE SCREEN NEGATIVE (Neg)
[2019-10-24 19:18] LABS: ALANINE AMINOTRANSFERASE 15 U/L (12-78); ALBUMIN 3.5 G/DL (3.4-5.0); ALBUMIN/GLOBULIN RATIO 1.1 (1.1-1.5); ALKALINE PHOSPHATASE 76 IU/L (46-116); ANION GAP 9 (8-16); ASPARTATE AMINO TRANSFERASE 40 U/L (10-37); BILIRUBIN,TOTAL 0.5 MG/DL (0.1-1.0); BLOOD UREA NITROGEN 20 MG/DL (7-18); CHLORIDE 104 MMOL/L (99-107); CREATININE 1.11 MG/DL (0.60-1.10); GLUCOSE 91 MG/DL (70-104); POTASSIUM 3.8 MMOL/L (3.5-5.1); SODIUM 141 MMOL/L (135-145); TOTAL CARBON DIOXIDE 28.2 MMOL/L (24-32); TOTAL PROTEIN 6.8 G/DL (6.4-8.2); eGFR 78 ML/MIN
[2019-10-24 19:29] LABS: TOTAL CELLS COUNTED 100
[2019-10-24 19:30] LABS: PLATELET ESTIMATE DECREASED
[2019-10-24 20:03] LABS: ETHANOL < 0.010 GM/DL (0.0-0.010)
[2019-10-24] MEDS ORDERED: diphenhydrAMINE 50 mg/ml inj IM ONE (20:10)
[2019-10-24] MEDS ORDERED: haloperidol lactate 5mg/ml inj IM ONE (20:10)
[2019-10-24] MEDS ORDERED: LORazepam 2 mg/ml vial IM ONE (20:10)
[2019-10-24] MEDS ORDERED: hydrOXYzine 25 MG tablet PO ONE (20:30)
--- NOTE | 2019-10-24 22:42 | NUR ---
PT UP OUT OF BED TO REST ROOM INDEPENDENTLY
[2019-10-24] MEDS ORDERED: LORazepam 1 MG tablet PO ONE (22:45)
[2019-10-24] MEDS ORDERED: BUPR150T8 PO (23:48)
[2019-10-24] MEDS ORDERED: BUPR-83 PO (23:50)
[2019-10-24] MEDS ORDERED: BUPR100T7 PO (23:51)
[2019-10-24] MEDS ORDERED: DIVA500T39 PO (23:53)
[2019-10-24] MEDS ORDERED: HYDR-3686 PO (23:55)
[2019-10-24] MEDS ORDERED: LORA-269 PO (23:58)
[2019-10-25] MEDS ORDERED: PRAZ1CAP5 PO
[2019-10-25] MEDS ORDERED: PROP10TA10 PO (00:02)
[2019-10-25] MEDS ORDERED: LORA10TA7 PO (00:03)
[2019-10-25] MEDS ORDERED: MONT10TA24 PO (00:04)
[2019-10-25] MEDS ORDERED: OMEP-271 PO (00:05)
--- NOTE | 2019-10-25 00:23 | NUR ---
PATIENT ANGRY ABOUT BEING HELD IN ED. PER PT, HIS FRUSTRATION "MADE" HIM THROW UP. FROM PATIENT'S DESCRIPTION, THIS IS SOMETHING THAT HAPPENS WHEN HE GETS UPSET. TECH WENT TO ASSIST PT IN RR, AND ASSIST HIM BACK TO BED AFTER EPISODE OF VOMITTING. PT NOW RESTING PEACEFULLY IN BED, WITH NO FURTHER EVIDENCE OF NAUSEA OR ANGER. WILL CONTINUE TO MONITOR PT FOR BEHAVIORAL ISSUES, AND FUTURE N/V.
--- NOTE | 2019-10-25 00:48 | NUR ---
PT IS COMPLAINING ABOUT HIS THROAT BURNING AFTER VOMITING. PT ASSESSED, LUNGS ARE CLEAR AND PT'S RR IS UNLABORED.
--- NOTE | 2019-10-25 01:59 | NUR ---
PT IS SLEEPING, NO S/S OF DISTRESS NOTED. RR UNLABORED.
--- NOTE | 2019-10-25 02:15 | NUR ---
PT IS AWAKE AND STANDING AT BEDSIDE WITH HIS EYES CLOSED.
--- NOTE | 2019-10-25 03:10 | NUR ---
pt appears to be sleeping on his back, no s/s of distress noted, will continue to monitor.
--- NOTE | 2019-10-25 04:12 | NUR ---
pt is sitting up in bed with eyes closed. no s/s of distress noted.
--- NOTE | 2019-10-25 04:55 | NUR ---
pt is sitting up in bed clenching his fists. when asked if he needs anything, pt says he needs caffeine. pt was reminded that he cannot have caffeine here; pt then began saying that he can only be happy and healthy if he has caffeine.
[2019-10-25 05:54] VITALS: BP 120/66
[2019-10-25] MEDS ORDERED: LORazepam 1 MG tablet PO PRN (06:00)
--- NOTE | 2019-10-25 06:43 | NUR ---
Pt is sleeping on his left side uncovered. RR even and unlabored.
[2019-10-25] MEDS ORDERED: pantoprazole 40mg Tablet.DR PO SCH (07:30)
[2019-10-25] MEDS ORDERED: loratadine 10mg tablet PO SCH (08:00)
[2019-10-25] MEDS ORDERED: buPROPion SR 150mg tablet PO SCH ×2 (08:00→21:00)
[2019-10-25] MEDS ORDERED: montelukast 10mg tablet PO SCH (08:00)
[2019-10-25] MEDS ORDERED: propranolol 10mg tablet PO SCH (08:00)
[2019-10-25] MEDS ORDERED: ibuprofen tablet 400 MG TABLET PO PRN (08:00)
[2019-10-25] MEDS ORDERED: divalproex sodium 500mg tablet.DR PO SCH (08:00)
[2019-10-25] MEDS ORDERED: calcium carbonate/vitamin D3 tablet PO SCH (08:00)
--- NOTE | 2019-10-25 10:00 | NUR ---
Pt is walking around back and forth from his bed to the nurses station. He is easily redirectable. Pt refused 0800 Depakote. Notified LALA Gonsales.
--- NOTE | 2019-10-25 10:22 | NUR ---
Pt is up socializing with staff. He is calm and pleasant today. Easily redirectable.
--- NOTE | 2019-10-25 11:09 | NUR ---
Breaking primary RN, pt is up at the nurses station asking about process, it is being explained to him, he is calm, no agitation
--- NOTE | 2019-10-25 11:28 | NUR ---
Spoke to Shante at [facility] office who states that the TSH and UA have not been received. Sent TSH. Informed nurse about the UA. This is still needed. Spoke to Aurelia in the lab who states if the order is put in, they may be able to run it off of previous sample.
[2019-10-25] MEDS ORDERED: buPROPion SR 100mg tab PO SCH (12:30)
--- NOTE | 2019-10-25 13:45 | NUR ---
Spoke to Heike at [facility]. Pt has been accepted for admission.
[2019-10-25 13:53] LABS: CLARITY,URINE SLIGHTLY CLOUDY (Clear); COLOR,URINE YELLOW (Yellow); GLUCOSE, URINE NEGATIVE (Neg); KETONES,URINE NEGATIVE (Neg); LEUKOCYTE ESTERASE ,URINE NEGATIVE (Neg); NITRITES, URINE NEGATIVE (Neg); OCCULT BLOOD,URINE NEGATIVE (Neg); PROTEIN,URINE NEGATIVE (Neg)
[2019-10-25 13:55] LABS: UA COLLECTION TYPE CLN CATCH MIDSTREAM
[2019-10-25 14:17] LABS: SQUAMOUS EPITHELIAL CELL,UR FEW /LPF (FEW)
[2019-10-25 14:18] LABS: BACTERIA,URINE FEW /HPF (Neg); TRANSITIONAL EPI CELLS,URINE FEW /HPF; WBC,URINE 0-4 /HPF (0-4)
[2019-10-25 14:19] LABS: RBC,URINE NONE SEEN /HPF (0-2)
--- NOTE | 2019-10-25 14:30 | NUR ---
Spoke to Shante at the [facility] office. Transport is to arrive for this patient in `15 Addendum: 10/25/19 at 1430 by DANE 15-20 minutes.
--- NOTE | 2019-10-25 15:07 | NUR ---
Pt discharged to [facility] via [facility] office. Pt left w/all his personal belongings. He was in good spirts; thanked all the staff "for your help and taking care of me."
[2019-10-25] MEDS ORDERED: prazosin 1mg capsule PO SCH (21:00)
[2019-10-25] MEDS ORDERED: hydrOXYzine 25 MG tablet PO PRN (21:00)
== END 2019-10-25 15:00 ==
LOC: ER 17:17
DX: R45.4 Irritability and anger (principal); F09 Unspecified mental disorder due to known physiological condition; J45.909 Unspecified asthma, uncomplicated; K21.9 Gastro-esophageal reflux disease without esophagitis; Z88.8 Allergy status to other drugs, medicaments and biological substances; Z79.899 Other long term (current) drug therapy
CPT/HCPCS: 36415; 80053; 80305; 80320; 81001; 84443; 85025; 99285; J1200; J1630; J2060; Z7610

== ENCOUNTER 2022-07-25 20:30 | Emergency (ER) | payer MEDICAID ==
[~2022-07-25] VITALS: Ht 182.9 cm; Wt 54.8 kg
[~2022-07-25 20:30] MED LIST changes: -ATI1T PO; +BUPR-114 PO; -BUPR-84 PO; +BUPR100T15 PO; -BUPR100T7 PO; -DIVA500T2 PO; +DIVA500T39 PO; +LORA-269 PO; +MONT-40 PO; -MONT10TA24 PO; +OMEP-271 PO; -OMEP20TA23 PO; -ONDA8TAB12 PO
[2022-07-25 20:53] VITALS: BP 108/75
[2022-07-25] MEDS ORDERED: LORazepam 1 MG tablet PO ONE (21:30)
[2022-07-25] MEDS ORDERED: ESZO1TAB11 PO (21:33)
== END 2022-07-25 22:02 | disposition home or self-care (01) ==
LOC: ER 20:31
DX: F29 Unspecified psychosis not due to a substance or known physiological condition (principal); J44.9 Chronic obstructive pulmonary disease, unspecified; K21.9 Gastro-esophageal reflux disease without esophagitis; Z88.1 Allergy status to other antibiotic agents; Z79.899 Other long term (current) drug therapy; Z88.8 Allergy status to other drugs, medicaments and biological substances; Z79.1 Long term (current) use of non-steroidal anti-inflammatories (NSAID); Z79.2 Long term (current) use of antibiotics
CPT/HCPCS: 99283

== ENCOUNTER 2024-01-30 07:54 | Emergency (ER) | payer MEDICAID ==
[~2024-01-30] VITALS: Ht 177.8 cm; Wt 62.2 kg
[~2024-01-30 07:54] MED LIST changes: +ESZO1TAB11 PO
[2024-01-30 07:55] VITALS: TEMP 98.2
[2024-01-30] MEDS ORDERED: levetiracetam inj 1,000 MG in normal saline 100ml IV soln 90 ML IV ONE (09:10)
[2024-01-30] MEDS: normal saline 1000ML IV soln IVB ONE (09:10)
[2024-01-30 09:52] VITALS: BP 123/87; PULSE 98; RESP 16; O2SAT 99
[2024-01-30] MEDS: levetiracetam inj 1,000 MG in normal saline 100ml IV soln 100 ML IV ONE (09:54)
[2024-01-30 10:04] LABS: BASOPHILS % (AUTO) 0.4 % (0-1); EOSINOPHILS % (AUTO) 0 % (0-6); HEMATOCRIT 46.5 % (42.0-52.0); HEMOGLOBIN 15.9 g/dl (14.0-17.9); LYMPHOCYTES % (AUTO) 19.4 % (21-51); MEAN CORPUSCULAR HEMOGLOBIN 28.7 PG (27.0-31.0); MEAN CORPUSCULAR HGB CONC 34.2 g/dL (33.0-36.5); MEAN CORPUSCULAR VOLUME 83.8 FL (78-98); MEAN PLATELET VOLUME 9.1 FL (7.4-10.4); MONOCYTES # (AUTO) 0.4 X10'3 (0-0.9); MONOCYTES % (AUTO) 7.2 % (2-12); NEUTROPHILS # (AUTO) 3.8 X10'3 (1.8-7.7); PLATELET COUNT 118 X10'3 (140-440); RED BLOOD COUNT 5.55 X10'6 (4.70-6.10); RED CELL DISTRIBUTION WIDTH 13.7 % (11.5-14.5); WHITE BLOOD COUNT 5.2 X10'3 (4.5-11.0)
[2024-01-30 10:04] LABS: BILIRUBIN,URINE NEGATIVE (Neg); CLARITY,URINE CLEAR (Clear); COLOR,URINE STRAW (Yellow); GLUCOSE, URINE NEGATIVE (Neg); KETONES,URINE NEGATIVE (Neg); LEUKOCYTE ESTERASE ,URINE NEGATIVE (Neg); NITRITES, URINE NEGATIVE (Neg); OCCULT BLOOD,URINE NEGATIVE (Neg); PROTEIN,URINE NEGATIVE (Neg); UROBILINOGEN,URINE 0.2 E.U/dL (0.2-1.0)
[2024-01-30 10:07] LABS: UA COLLECTION TYPE VOIDED
[2024-01-30 10:11] LABS: ALBUMIN 3.7 G/DL (3.4-5.0); ANION GAP 7 (8-16); BLOOD UREA NITROGEN 13 MG/DL (7-18); BUN/CREATININE RATIO 12.7 (10.0-20.0); CALCIUM 8.8 MG/DL (8.5-10.1); CHLORIDE 110 MMOL/L (99-107); CREATININE 1.02 MG/DL (0.60-1.10); GLUCOSE 81 MG/DL (70-104); POTASSIUM 4.8 MMOL/L (3.5-5.1); SODIUM 145 MMOL/L (135-145); TOTAL CARBON DIOXIDE 28.5 MMOL/L (24-32); eCRCL 90 ML/MIN; eGFR 84 ML/MIN
[2024-01-30 10:11] LABS: URINE AMPHETAMINE SCREEN NEGATIVE (Neg); URINE BARBITUATE SCREEN NEGATIVE (Neg); URINE BENZODIAZEPINES SCREEN NEGATIVE (Neg); URINE CANNABINOID SCREEN NEGATIVE (Neg); URINE COCAINE SCREEN NEGATIVE (Neg); URINE METHADONE SCREEN NEGATIVE (Neg); URINE OPIATE SCREEN NEGATIVE (Neg); URINE PHENCYCLIDINE SCREEN NEGATIVE (Neg)
[2024-01-30 10:12] LABS: ETHANOL < 10 MG/DL (<10)
== END 2024-01-30 12:02 | disposition home or self-care (01) ==
LOC: ER 07:55
DX: G40.89 Other seizures (principal)
CPT/HCPCS: 36415; 70450; 71045; 80048; 80305; 80320; 81003; 85025; 93005; 96361; 96374; 99285; J1953; J3490; J7030

== ENCOUNTER 2024-07-07 19:49 | Emergency (ER) | payer MEDICAID ==
[~2024-07-07] VITALS: Ht 180.3 cm; Wt 60.0 kg
[2024-07-07 21:06] VITALS: BP 111/83; PULSE 109; RESP 18; TEMP 97.6; O2SAT 95
[2024-07-07 21:11] LABS: BASOPHILS % (AUTO) 0.3 % (0-1); EOSINOPHILS % (AUTO) 0 % (0-6); HEMATOCRIT 41.8 % (42.0-52.0); HEMOGLOBIN 14.4 g/dl (14.0-17.9); LYMPHOCYTES # (AUTO) 1.9 X10'3 (1.1-4.8); LYMPHOCYTES % (AUTO) 23.2 % (21-51); MEAN CORPUSCULAR HEMOGLOBIN 28.9 PG (27.0-31.0); MEAN CORPUSCULAR HGB CONC 34.4 g/dL (33.0-36.5); MEAN CORPUSCULAR VOLUME 83.8 FL (78-98); MEAN PLATELET VOLUME 9.3 FL (7.4-10.4); MONOCYTES # (AUTO) 0.6 X10'3 (0-0.9); NEUTROPHILS # (AUTO) 5.6 X10'3 (1.8-7.7); NEUTROPHILS % (AUTO) 69.5 % (42-75); PLATELET COUNT 128 X10'3 (140-440); RED BLOOD COUNT 4.99 X10'6 (4.70-6.10); RED CELL DISTRIBUTION WIDTH 13.5 % (11.5-14.5); WHITE BLOOD COUNT 8.1 X10'3 (4.5-11.0)
[2024-07-07 21:29] LABS: ALBUMIN 3.6 G/DL (3.4-5.0); ANION GAP 9 (8-16); BLOOD UREA NITROGEN 14 MG/DL (7-18); BUN/CREATININE RATIO 14.6 (10.0-20.0); CALCIUM 8.6 MG/DL (8.5-10.1); CHLORIDE 110 MMOL/L (99-107); CREATININE 0.96 MG/DL (0.60-1.10); GLUCOSE 98 MG/DL (70-104); POTASSIUM 4.2 MMOL/L (3.5-5.1); PRO BRAIN NATRIURETIC PEPTIDE < 30 PG/ML (0-125); SODIUM 145 MMOL/L (135-145); TOTAL CARBON DIOXIDE 25.9 MMOL/L (24-32); eCRCL 92 ML/MIN; eGFR 90 ML/MIN
== END 2024-07-07 22:28 | disposition left against medical advice (07) ==
LOC: ER 19:50
DX: R07.89 Other chest pain (principal); R06.02 Shortness of breath; Z53.21 Procedure and treatment not carried out due to patient leaving prior to being seen by health care provider
CPT/HCPCS: 36415; 71045; 80048; 83880; 84484; 85025; 93005